=== PATIENT | female | born 1940 | race Caucasian/White ===

== ENCOUNTER → 2017-02-27 | Outpatient (REF) | payer MEDICARE ==
[~2017-02-27] MED LIST: ARTI99.0 OU; EYECAP PO; FERR325T PO; FURO20TA2 PO; INSUDET SC; INSUH10VL SC; OCUVTAB4 PO; OMEP40CA2 PO; PROP10TA56 PO; SPIR50TA2 PO; VITA200015 PO; XIFA550T PO
[2017-02-27 20:00] LABS: ALBUMIN/GLOBULIN RATIO 1.03 (1.00-1.93); BILIRUBIN,TOTAL 2.9 MG/DL (0.2-1.0); CALCIUM LEVEL 8.1 MG/DL (8.8-10.2); CREATININE FOR GFR 1.27 MG/DL (0.55-1.02); GLOMERULAR FILTRATION RATE 43.7 (>39); POTASSIUM SERUM 4.7 MEQ/L (3.5-5.1); TOTAL PROTEIN 5.9 GM/DL (6.4-8.2)
== END ==
LOC: M SFHCADAM 15:54
PROVIDERS: ATTEND Family Medicine
DX: R60.0 Localized edema (principal)

== ENCOUNTER → 2017-02-27 | Outpatient (CLI) | payer MEDICARE ==
--- NOTE | 2017-02-27 17:19 | REP ---
CHEST, TWO VIEWS: HISTORY: Lower extremity edema. COMPARISON: 07/29/2016 Increased density is present in the right lower lobe consistent with atelectasis or infiltrate. A small right pleural effusion is present. The left lung is clear. The heart is normal in size. The pulmonary vasculature is normal in appearance. There are old compression fractures of two mid thoracic vertebral bodies. IMPRESSION: 1. Right lower lobe atelectasis or infiltrate. 2. Small right pleural effusion. Signed by Winston Dye MD 02/28/2017 08:50 A
== END ==
LOC: M ADAMS 15:56
PROVIDERS: ATTEND Family Medicine
DX: J98.11 Atelectasis (principal); J90 Pleural effusion, not elsewhere classified; R60.0 Localized edema
CPT/HCPCS: 71020; 80053; 83880; G0463

== ENCOUNTER → 2017-03-21 | Outpatient (REF) | payer MEDICARE ==
[~2017-03-21] MED LIST changes: +AMLO2.5T PO; +CLOP75TA2 PO; +FURO40TA2 PO; +PANT40TA2 PO
== END ==
LOC: M SFHCADAM 15:45
PROVIDERS: ATTEND Physician Assistant Medical
DX: E11.21 Type 2 diabetes mellitus with diabetic nephropathy (principal); D63.8 Anemia in other chronic diseases classified elsewhere; Z53.8 Procedure and treatment not carried out for other reasons

== ENCOUNTER → 2017-03-23 | Outpatient (REF) | payer MEDICARE ==
[2017-03-23 18:44] LABS: FOLATE 15.7 NG/ML (>5.4)
[2017-03-23 19:09] LABS: ALBUMIN 3.2 GM/DL (3.2-5.2); ALBUMIN/GLOBULIN RATIO 1.1 (1.00-1.93); BILIRUBIN,TOTAL 4.1 MG/DL (0.2-1.0); CALCIUM LEVEL 8.5 MG/DL (8.8-10.2); CREATININE FOR GFR 1.14 MG/DL (0.55-1.02); GLOMERULAR FILTRATION RATE 49.5 (>39); POTASSIUM SERUM 3.8 MEQ/L (3.5-5.1); TOTAL PROTEIN 6.1 GM/DL (6.4-8.2)
[2017-03-23 19:20] LABS: BASO % 0.5 % (0.0-1.0); EOS # 0.2 K/mm3 (0.0-0.50); EOS % 2.5 % (0.0-3.0); LARGE UNSTAINED CELL # 0.2 K/mm3 (0.0-0.4); LARGE UNSTAINED CELL % 3.5 % (0.0-4.0); LYMPH # 1.4 K/mm3 (1.5-4.5); LYMPH % 23.2 % (24.0-44.0); MEAN CORPUSCULAR HGB CONC 33.4 g/dl (32.0-36.5); MEAN CORPUSCULAR VOLUME 101.7 fl (80.0-96.0); MONO # 0.4 K/mm3 (0.0-0.8); MONO % 6.6 % (0.0-5.0); NEUTROPHILS # 3.8 K/mm3 (1.8-7.7); NEUTROPHILS % 63.7 % (36.0-66.0); PLATELET COUNT, AUTOMATED 101 k/mm3 (150-450); WHITE BLOOD COUNT 5.9 K/mm3 (4.0-10.0)
== END ==
LOC: M LABDRAW1 15:03
PROVIDERS: ATTEND Physician Assistant Medical
DX: N18.9 Chronic kidney disease, unspecified (principal); D63.8 Anemia in other chronic diseases classified elsewhere; E11.21 Type 2 diabetes mellitus with diabetic nephropathy

== ENCOUNTER 2017-03-27 17:12 | Observation (INO) | payer MEDICARE ==
[~2017-03-27] VITALS: Ht 154.9 cm; Wt 80.7 kg
[~2017-03-27 17:12] MED LIST changes: -AMLO2.5T PO; -CLOP75TA2 PO; -FURO40TA2 PO; -PANT40TA2 PO
[2017-03-27] MEDS ORDERED: NS 1,000 ML IV SCH (17:57)
--- NOTE | 2017-03-27 18:17 | REP ---
Clinical: Altered mental status . Findings: Age-related atrophy and microvascular ischemic changes are appreciated. The ventricles and sulci are symmetric. Benavidez-white differentiation is maintained. There is no evidence for acute intracranial hemorrhage, mass/mass effect, pathology or infarction. No extra-axial fluid collection. Calvarium is intact. Paranasal sinuses and mastoid air cells are clear. Impression: Age related atrophy and microvascular ischemic changes. No acute intracranial hemorrhage, infarction, or mass/mass effect. Signed by Nakul Iyer MD 03/27/2017 06:09 P
[2017-03-27 18:32] LABS: ABG BASE EXCESS -1.2 (-2.0-2.0); ABG HCO3 21.6 MEQ/L (22.0-26.0); ABG PARTIAL PRESSURE CO2 29.8 mmHg (35.0-45.0); ABG PARTIAL PRESSURE O2 118.1 mmHg (75.0-100.0); ABG STANDARD HCO3 23.5 MEQ/L (22.0-26.0); ABG TOTAL CO2 22.5 MEQ/L (23.0-31.0); ABG pH (ARTERIAL) 7.478 UNITS (7.350-7.450)
--- NOTE | 2017-03-27 18:34 | REP ---
Clinical: Altered mental status. Comparison: 07/29/2016. Findings: Mediastinum and cardiac silhouette are within normal limits and stable. Lung sousa demonstrate chronic stable interstitial changes. No obvious acute consolidation, effusion, or pneumothorax. Skeletal structures demonstrate age-related degenerative changes. Impression: Chronic stable changes. No obvious acute cardiopulmonary process. Signed by Nakul Iyer MD 03/27/2017 06:26 P
[2017-03-27 18:53] LABS: BASO % 0.5 % (0.0-1.0); EOS # 0.1 K/mm3 (0.0-0.50); EOS % 1.3 % (0.0-3.0); LARGE UNSTAINED CELL # 0.2 K/mm3 (0.0-0.4); LARGE UNSTAINED CELL % 3.4 % (0.0-4.0); LYMPH # 1.1 K/mm3 (1.5-4.5); LYMPH % 22.7 % (24.0-44.0); MEAN CORPUSCULAR HEMOGLOBIN 34.2 pg (27.0-33.0); MEAN CORPUSCULAR HGB CONC 33.9 g/dl (32.0-36.5); MEAN CORPUSCULAR VOLUME 100.8 fl (80.0-96.0); MONO # 0.3 K/mm3 (0.0-0.8); MONO % 6.1 % (0.0-5.0); NEUTROPHILS # 3.3 K/mm3 (1.8-7.7); NEUTROPHILS % 66.1 % (36.0-66.0); RED CELL DISTRIBUTION WIDTH 13.9 % (11.5-14.5)
[2017-03-27 18:58] LABS: INR 1.54
[2017-03-27] MEDS ORDERED: FURO40TA2 PO (19:06)
[2017-03-27] MEDS ORDERED: XIFA550T PO (19:07)
[2017-03-27] MEDS ORDERED: CLOP75TA2 PO (19:07)
[2017-03-27] MEDS ORDERED: AMLO2.5T PO (19:07)
[2017-03-27] MEDS ORDERED: PANT40TA2 PO (19:07)
[2017-03-27 19:11] LABS: METHADONE URINE NEGATIVE (NEGATIVE)
[2017-03-27 19:12] LABS: PLATELET COUNT, AUTOMATED 83 k/mm3 (150-450)
[2017-03-27 19:15] LABS: ALBUMIN 2.8 GM/DL (3.2-5.2); ALBUMIN/GLOBULIN RATIO 0.97 (1.00-1.93); ALKALINE PHOSPHATASE 66 U/L (45-117); ALT/SGPT 25 U/L (12-78); AMYLASE 59 U/L (25-115); ANION GAP 8 MEQ/L (8-16); AST/SGOT 30 U/L (15-37); BILIRUBIN,DIRECT 0.8 MG/DL (0.0-0.2); BILIRUBIN,TOTAL 3.9 MG/DL (0.2-1.0); CALCIUM LEVEL 8.1 MG/DL (8.8-10.2); CARBON DIOXIDE LEVEL 25 MEQ/L (21-32); CHLORIDE LEVEL 113 MEQ/L (98-107); CREATININE FOR GFR 0.99 MG/DL (0.55-1.02); GLOMERULAR FILTRATION RATE 58.2 (>39); GLUCOSE, FASTING 139 MG/DL (83-110); SODIUM LEVEL 146 MEQ/L (136-145); TOTAL PROTEIN 5.7 GM/DL (6.4-8.2)
[2017-03-27 19:20] LABS: BLOOD UREA NITROGEN 24 MG/DL (7-18)
[2017-03-27] MEDS ORDERED: ISOVUE-370 76% 100ML VIAL (Q9967) As Ordered ONE (20:05)
[2017-03-27] MEDS: LEVEMIR (INSULIN DETEMIR) 1 UNITS/0.01ML SC SCH (21:00)
[2017-03-27] MEDS ORDERED: oxyCODONE 5MG TAB PO PRN (23:00)
[2017-03-27] MEDS ORDERED: GLUCAGON FOR INJ 1 MG VIAL (J1610) SC PRN (23:00)
[2017-03-27] MEDS ORDERED: ONDANSETRON 4MG/2ML VIAL (J2405) IV PRN (23:00)
[2017-03-27] MEDS ORDERED: ONDANSETRON 4 MG TAB (S0181) PO PRN (23:00)
[2017-03-27] MEDS ORDERED: GLUCOSE 4 GM CHEW TABLET PO PRN (23:00)
[2017-03-27] MEDS ORDERED: DEXTROSE 50% 50 ML SYRINGE IV PRN (23:00)
[2017-03-28] MEDS: PROPRANOLOL 10 MG TAB PO SCH ×3 (01:26→20:48)
[2017-03-28] MEDS: NS 0.45% 1,000 ML IV SCH ×2 (01:27→20:49)
[2017-03-28] MEDS: rifAXIMin 550 MG TAB (XIFAXAN) PO SCH ×3 (01:30→20:47)
--- NOTE | 2017-03-28 05:55 | HPEPDOC ---
Medical History and Physical Date of Admission March 27, 2017 at 23:00 History and Physical HISTORY AND PHYSICAL Date of admission: 03/27/2017 PCP: Lucinda Rich Chief complaint: Found down on the floor and confused HPI: 76-year-old female with liver cirrhosis of unknown etiology, hypertension, GERD, diabetes mellitus type 2 who was brought into the emergency department secondary to being found down on the ground by her partner and confused. It is unknown how long she was on the floor. Unfortunately, no family has accompanied her, and she tells me that she doesn't have any memory of what happened today. It is unclear if she lost consciousness, but the patient thinks that she might have. By the time I interviewed her, she is alert and oriented 3, but she has no idea how she got on the floor or what happened today. She is a very poor historian, and does not have any specific complaints. She does report some abdominal pain, but upon further discussion, it sounds like this has been a problem ever since July, after the patient had a TIPS procedure. Past medical history: liver cirrhosis of unknown etiology, hypertension, GERD, diabetes mellitus type 2 Past surgical history: Appendectomy, BTL, bladder sling, cardiac cath without stent placement, bilateral cataract surgery, liver biopsy, cholecystectomy, TIPS procedure, frequent paracentesis Family history: CAD, cancer Social history: The patient denies any alcohol consumption currently. She states that in the past she used to drink occasionally but never drank heavily. She quit smoking over 10 years ago. She lives at home with her partner. Allergies: Aspirin, Cipro, duloxetine, morphine, nortriptyline, penicillin, sulfa,phenazophyridine Review of systems: General: Negative for fever, positive for chills Eyes: Positive for vision changes during the time she was on the floor that have now resolved negative for ocular discharge ENT: Positive for sore throat Cardiovascular: Negative for chest pain and palpitations Respiratory: Positive for cough, negative for shortness of breath GI: Positive for diarrhea, negative for vomiting and nausea Musculoskeletal: Positive for back pain Skin: Negative for rash Neuro: Positive for headache, negative for dizziness, numbness, tingling Psych: Negative for suicidal ideation, but positive for depression Endocrine: Positive for polyuria : Negative for dysuria Heme: Negative for bruising and bleeding Home meds: See below Physical exam: Vital signs: Vital Sign - Last 24 Hours 03/27/17 03/27/17 03/27/17 03/27/17 17:51 19:09 19:12 19:24 Temp 98.6 Pulse 68 62 Resp 18 B/P (MAP) 182/89 (120) 200/79 (119) 217/108 (144) Pulse Ox 99 99 O2 Delivery Room Air 03/27/17 03/27/17 03/27/17 03/27/17 19:27 19:42 19:55 19:57 Pulse 74 70 62 B/P (MAP) 159/70 (99) Pulse Ox 99 98 98 03/27/17 03/27/17 03/27/17 03/27/17 19:58 19:58 20:09 20:12 Pulse 64 B/P (MAP) 159/70 (99) 166/71 (102) 174/70 (104) Pulse Ox 98 03/27/17 03/27/17 03/27/17 03/27/17 20:24 20:27 20:39 20:42 Pulse 74 68 B/P (MAP) 161/69 (99) 151/67 (95) Pulse Ox 97 97 03/27/17 03/27/17 03/27/17 03/27/17 20:54 20:57 21:09 21:12 Pulse 68 66 B/P (MAP) 159/60 (93) 161/67 (98) Pulse Ox 98 98 03/27/17 03/27/17 03/27/17 03/27/17 21:24 21:27 21:39 21:42 Pulse 64 62 B/P (MAP) 155/67 (96) 168/70 (102) Pulse Ox 99 98 03/27/17 03/27/17 03/27/17 03/27/17 21:54 21:57 22:09 22:12 Pulse 64 64 B/P (MAP) 162/69 (100) 99/52 (68) Pulse Ox 98 98 03/27/17 03/27/17 03/27/17 03/27/17 22:27 22:39 22:42 22:54 Pulse 70 64 B/P (MAP) 145/62 (89) 145/58 (87) Pulse Ox 98 100 03/27/17 03/27/17 03/27/17 03/27/17 22:57 23:09 23:12 23:24 Pulse 62 74 B/P (MAP) 151/65 (93) 155/67 (96) Pulse Ox 100 03/27/17 03/27/17 03/27/17 03/27/17 23:27 23:39 23:42 23:54 Pulse 64 62 B/P (MAP) 145/63 (90) 151/56 (87) 03/27/17 03/28/17 03/28/17 03/28/17 23:57 00:09 00:12 00:24 Pulse 62 62 B/P (MAP) 158/61 (93) 157/65 (95) 03/28/17 03/28/17 03/28/17 03/28/17 00:27 00:39 00:42 00:54 Pulse 60 60 B/P (MAP) 162/63 (96) 144/58 (86) 03/28/17 03/28/17 03/28/17 03/28/17 00:57 01:09 01:12 01:17 Temp 98.1 Pulse 60 66 64 Resp 20 B/P (MAP) 156/58 (90) 156/58 (90) Pulse Ox 98 98 O2 Delivery Room Air 03/28/17 03/28/17 03/28/17 03/28/17 01:24 01:26 01:27 01:27 Pulse 60 Resp 18 B/P (MAP) 141/58 (85) 141/58 Pulse Ox 98 03/28/17 03/28/17 03/28/17 03/28/17 01:39 01:42 01:54 01:57 Pulse 62 64 B/P (MAP) 144/60 (88) 151/61 (91) Pulse Ox 98 96 03/28/17 03/28/17 03/28/17 03/28/17 01:58 02:09 02:12 02:24 Pulse 64 Resp 20 B/P (MAP) 150/60 (90) 152/63 (92) Pulse Ox 96 03/28/17 03/28/17 03/28/17 03/28/17 02:27 02:42 02:54 02:57 Pulse 60 56 58 B/P (MAP) 140/62 (88) Pulse Ox 97 96 96 03/28/17 03/28/17 03/28/17 03/28/17 03:09 03:12 03:24 03:27 Pulse 60 58 B/P (MAP) 138/60 (86) 143/59 (87) Pulse Ox 97 96 03/28/17 03/28/17 03/28/17 03/28/17 03:39 03:42 03:54 03:57 Pulse 58 58 B/P (MAP) 138/62 (87) 139/60 (86) Pulse Ox 97 96 03/28/17 03/28/17 03/28/17 03/28/17 04:09 04:12 04:24 04:27 Pulse 60 58 B/P (MAP) 141/58 (85) 142/58 (86) Pulse Ox 96 97 03/28/17 03/28/17 03/28/17 03/28/17 04:39 04:42 04:54 04:57 Pulse 58 60 B/P (MAP) 142/61 (88) 145/63 (90) Pulse Ox 96 96 03/28/17 05:07 Temp 98.3 Resp 20 B/P (MAP) O2 Delivery Room Air Gen.: awake, alert, no acute distress Eyes: Extraocular movements intact, normal sclera ENT: Moist mucous membranes Cardiovascular: RRR, no murmurs rubs or gallops Lungs: clear to auscultation bilaterally, no rales, rhonchi, or wheeze Abdomen: Soft, normal BS, diffuse TTP Musculoskeletal: normal range of motion Extremities: No peripheral edema Neuro: alert and oriented 3, normal speech, no deficits in any extremities, no facial droop, no arm drift, intact finger to nose on right but significant tremor on left Psych: Normal mood with congruent affect Labs and radiology: See below Sodium 146 CK 80 Platelets 83 T bili 3.9 A lactate, ammonia, troponin, lipase, TSH, tox screen within normal limits EKG shows sinus rhythm with right bundle branch block CT head unremarkable Chest x-ray negative for acute findings CT of the abdomen and pelvis shows moderate right pleural effusion, and evidence of prior TIPS Assessment and plan: 76-year-old female with liver cirrhosis of unknown etiology, hypertension, GERD , diabetes mellitus type 2 who was brought into the emergency department secondary to being found down on the ground by her partner and confused. 1. Found down on the ground: It is unclear how this happened or how long the patient was down. Her CK is normal, so there is no evidence of rhabdomyolysis. It is unclear if she lost consciousness, but the patient thinks she might have CT of the head is unremarkable. We will monitor her on telemetry, continue to trend cardiac markers, the first of which is negative, and check an echo. We'll also check orthostatics. EKG shows sinus rhythm with a right bundle branch block. She does not have any focal deficits, so I do not think an MRI is warranted at this time. Blood and urine cultures are pending. 2. Diarrhea: We'll check a GI panel and a fecal occult blood. She is afebrile with a normal white count. We will very gently hydrate her. 3. Liver cirrhosis of unknown etiology: Continue home rifaximin mean, propranolol, PPI, Lasix. LFTs appear to be at baseline, as are her platelets. An ammonia is within normal limits. CT of the abdomen and pelvis does not mention any ascites. 4. Hypertension: Continue home Norvasc, Lasix, propranolol. 5. GERD: Continue home PPI. 6. Diabetes mellitus type 2: Sliding scale insulin while in-house and check A1c. The patient does report that she has noticed some low blood sugars at home , but she reports that she thinks these have ranged from the 70s to 100s. We will decrease her home Levemir from 24 units twice a day to 12 units twice a day as we are unclear exactly what happened today, and one potential thing could be hypoglycemia. DVT prophylaxis: SCDs Dispo: Place in observation on the service of Dr. Jono Gilman CODE STATUS: Full code Vital Signs Vital Signs Date Time Temp Pulse Resp B/P (MAP) Pulse Ox O2 Delivery O2 Flow Rate FiO2 03/28/17 05:07 98.3 20 Room Air 03/28/17 04:57 60 96 Laboratory Data Labs 24H Laboratory Tests 2 03/27/17 18:24: Blood Gas Bicarbonate Standard 23.5, Arterial Blood pH 7.478H, Arterial Blood Partial Pressure CO2 29.8L, Arterial Blood Partial Pressure O2 118.1H, Arterial Blood Total CO2 22.5L, Arterial Blood HCO3 21.6L, Arterial Blood Base Excess - 1.2, Arterial Blood Oxygen Saturation 98.0 03/27/17 18:29: White Blood Count 5.0, Red Blood Count 3.42L, Hemoglobin 11.7L, Hematocrit 34.4L , Mean Corpuscular Volume 100.8H, Mean Corpuscular Hemoglobin 34.2H, Mean Corpuscular Hemoglobin Concent 33.9, Red Cell Distribution Width 13.9, Platelet Count 83L, Neutrophils (%) (Auto) 66.1H, Lymphocytes (%) (Auto) 22.7L, Monocytes (%) (Auto) 6.1H, Eosinophils (%) (Auto) 1.3, Basophils (%) (Auto) 0.5 , Neutrophils # (Auto) 3.3, Lymphocytes # (Auto) 1.1L, Monocytes # (Auto) 0.3, Eosinophils # (Auto) 0.1, Basophils # (Auto) 0.0, Large Unclassified Cells % 3.4 , Large Unclassified Cells # 0.2, Urine Appearance HAZY, Urine Color YELLOW, Urine pH 7.0, Urine Specific [place] 1.013, Urine Protein 1+H, Urine Glucose (UA ) NEGATIVE, Urine Ketones NEGATIVE, Urine Urobilinogen 0.2, Urine Bilirubin NEGATIVE, Urine Leukocyte Esterase NEGATIVE, Urine Blood NEGATIVE, Urine Nitrite NEGATIVE, Urine WBC (Auto) 0, Urine RBC (Auto) 2, Urine Hyaline Casts ( Auto) 0, Urine Bacteria (Auto) NEGATIVE, Urine Squamous Epithelial Cells 3, Urine Mucus (Auto) SMALL, Urine Sperm (Auto) , Anion Gap 8, Glomerular Filtration Rate 58.2, Lactic Acid Level 1.8, Calcium Level 8.1L, Aspartate Amino Transf (AST/SGOT) 30, Alanine Aminotransferase (ALT/SGPT) 25, Alkaline Phosphatase 66, Total Bilirubin 3.9H, Direct Bilirubin 0.8H, Ammonia 17, Total Creatine Kinase 80, Creatine Kinase MB 1.9, Creatine Kinase MB Relative Index 2.37, Troponin I 0.02, Total Protein 5.7L, Albumin 2.8L, Albumin/Globulin Ratio 0.97L, Amylase Level 59, Lipase 335, Thyroid Stimulating Hormone (TSH) 1.200, Salicylates Level < 1.7L, Urine Amphetamines Screen NEGATIVE, Urine Benzodiazepines Screen NEGATIVE, Urine Opiates Screen NEGATIVE, Urine Methadone Screen NEGATIVE, Acetaminophen Level < 2.0L, Urine Barbiturates Screen NEGATIVE , Urine Phencyclidine Screen NEGATIVE, Urine Cocaine Metabolite Screen NEGATIVE , Urine Cannabinoids Screen NEGATIVE, Ethyl Alcohol Level < 0.003 03/27/17 18:30: Prothrombin Time 18.6H, Prothromb Time International Ratio 1.54, Activated Partial Thromboplast Time 36.5 03/28/17 01:09: Bedside Glucose (Misc Panel) 120H CBC/BMP Laboratory Tests 03/27/17 18:29 Red Blood Count 3.42 L, Mean Corpuscular Volume 100.8 H, Mean Corpuscular Hemoglobin 34.2 H, Mean Corpuscular Hemoglobin Concent 33.9, Red Cell Distribution Width 13.9, Neutrophils (%) (Auto) 66.1 H, Lymphocytes (%) (Auto) 22.7 L, Monocytes (%) (Auto) 6.1 H, Eosinophils (%) (Auto) 1.3, Basophils (%) ( Auto) 0.5, Neutrophils # (Auto) 3.3, Lymphocytes # (Auto) 1.1 L, Monocytes # ( Auto) 0.3, Eosinophils # (Auto) 0.1, Basophils # (Auto) 0.0 Microbiology Microbiology 03/27/17 Blood Culture, Received Pending 03/27/17 Blood Culture, Received Pending 03/27/17 Urine Culture, Received Pending Home Medications Scheduled Amlodipine Besylate (Amlodipine Besylate) 2.5 Mg Tab, 2.5 MG PO DAILY Cholecalciferol (Vitamin D) 2,000 Unit Tab, 2,000 UNIT PO DAILY Clopidogrel Bisulfate (Clopidogrel) 75 Mg Tab, 75 MG PO DAILY Ferrous Sulfate (Ferrous Sulfate) 325 Mg Tab, 325 MG PO DAILY Furosemide (Furosemide) 40 Mg Tab, 40 MG PO DAILY Insulin Aspart (Novolog) 100 U/Ml Inj, 1 DOSE SC AC per sliding scale Insulin Detemir (Levemir) 1 Units/0.01 Ml Susp, 24 UNITS SC BID Pantoprazole Sodium (Pantoprazole Sodium) 40 Mg Tab, 40 MG PO DAILY Propranolol HCl (Propranolol HCl) 10 Mg Tab, 10 MG PO BID Rifaximin (Xifaxan) 550 Mg Tab, 550 MG PO BID Allergies Coded Allergies: Aspirin (Verified Allergy, Intermediate, RASH, 07/31/16) Penicillins (Verified Allergy, Intermediate, SWELLING, 07/31/16) Phenazopyridine (Verified Allergy, Intermediate, RASH, 07/31/16) Sulfa Drugs (Verified Allergy, Intermediate, RASH, 07/31/16) Ciprofloxacin (Unverified Adverse Reaction, Intermediate, PANCYTOPENIA, ) Duloxetine (Unverified Adverse Reaction, Mild, DIZZINESS, 07/31/16) Morphine (Unverified Adverse Reaction, Mild, DIZZINESS, 07/31/16) Nortriptyline (Unverified Adverse Reaction, Mild, DROWSINESS, 07/31/16) KIMO MORALES March 28, 2017 05:54
--- NOTE | 2017-03-28 06:44 | ECGEPIP ---
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
--- NOTE | 2017-03-28 07:39 | REP ---
Clinical: Pain. Technique: Single AP view of the pelvis. Findings: Age-related degenerative changes to the pelvis and bilateral hips noted (right greater than left). No acute fracture dislocation identified. Degenerative changes to the visualized lumbosacral spine also appreciated. Impression: Age-related degenerative changes of the visualized lumbosacral spine, pelvis and hips (right greater than left). No acute fracture dislocation. Signed by Nakul Iyer MD 03/27/2017 07:13 P
[2017-03-28] MEDS: FERROUS SULFATE 325MG TAB PO SCH (08:13)
[2017-03-28] MEDS: CLOPIDOGREL 75 MG TAB PO SCH (08:15)
[2017-03-28] MEDS: PANTOPRAZOLE 40MG TAB (PROTONIX) PO SCH (08:17)
[2017-03-28] MEDS: FUROSEMIDE 40 MG TAB PO SCH (08:17)
[2017-03-28] MEDS: LEVEMIR (INSULIN DETEMIR) 1 UNITS/0.01ML SC SCH ×2 (08:18→20:47)
[2017-03-28] MEDS: HumaLOG INSULIN (NovoLOG) PER UNIT SC SCH ×4 (08:19→20:48)
[2017-03-28 08:25] LABS: INR 1.55
[2017-03-28 08:33] LABS: BASO % 0.9 % (0.0-1.0); EOS # 0.1 K/mm3 (0.0-0.50); EOS % 2.7 % (0.0-3.0); LARGE UNSTAINED CELL # 0.2 K/mm3 (0.0-0.4); LARGE UNSTAINED CELL % 3.5 % (0.0-4.0); LYMPH # 1.4 K/mm3 (1.5-4.5); LYMPH % 24.1 % (24.0-44.0); MEAN CORPUSCULAR HEMOGLOBIN 34.1 pg (27.0-33.0); MEAN CORPUSCULAR HGB CONC 34.3 g/dl (32.0-36.5); MEAN CORPUSCULAR VOLUME 99.3 fl (80.0-96.0); MONO # 0.4 K/mm3 (0.0-0.8); MONO % 6.7 % (0.0-5.0); NEUTROPHILS # 3.2 K/mm3 (1.8-7.7); NEUTROPHILS % 62.1 % (36.0-66.0); RED CELL DISTRIBUTION WIDTH 14.2 % (11.5-14.5); WHITE BLOOD COUNT 5.2 K/mm3 (4.0-10.0)
[2017-03-28 08:38] LABS: ALBUMIN 2.7 GM/DL (3.2-5.2); ALKALINE PHOSPHATASE 63 U/L (45-117); ALT/SGPT 23 U/L (12-78); ANION GAP 10 MEQ/L (8-16); AST/SGOT 29 U/L (15-37); BILIRUBIN,TOTAL 4.4 MG/DL (0.2-1.0); BLOOD UREA NITROGEN 24 MG/DL (7-18); CALCIUM LEVEL 7.5 MG/DL (8.8-10.2); CARBON DIOXIDE LEVEL 23 MEQ/L (21-32); CHLORIDE LEVEL 112 MEQ/L (98-107); CREATININE FOR GFR 0.94 MG/DL (0.55-1.02); GLOMERULAR FILTRATION RATE > 60.0 (>39); GLUCOSE, FASTING 161 MG/DL (83-110); MAGNESIUM LEVEL 1.8 MG/DL (1.8-2.4); POTASSIUM SERUM 3.8 MEQ/L (3.5-5.1); SODIUM LEVEL 145 MEQ/L (136-145); TOTAL PROTEIN 5.4 GM/DL (6.4-8.2)
--- NOTE | 2017-03-28 08:38 | REP ---
Clinical: Abdominal pain. Comparison: 07/29/2016. Findings: A small to moderate right pleural effusion is identified with bibasilar dependent changes and trace atelectasis. Visualized portions of the heart and pericardium are normal. Liver demonstrates nodular contour consistent with cirrhosis and there is evidence for TIPS. The patient is status post cholecystectomy. Spleen, pancreas, bilateral adrenal glands are essentially normal for noncontrast evaluation. Kidneys demonstrate age-related cortical atrophic changes without hydronephrosis. The enteric system is without obstruction or acute inflammatory process. Scattered diverticula noted without acute diverticulitis. Pelvis demonstrates partially collapsed normal bladder and age-appropriate uterus/adnexa with pessary in satisfactory position. No ascites. No free air. No significant adenopathy. Atherosclerotic changes to the vasculature noted without aneurysm. Small fat containing periumbilical hernia identified. Surrounding musculoskeletal structures demonstrate age-related degenerative changes without focal osseous abnormality. Impression: Small to moderate right pleural effusion. Evidence for cirrhosis and TIPS. Colonic diverticula without acute diverticulitis. Ascites. No acute intra-abdominal or pelvic pathology appreciated. Signed by Nakul Iyer MD 03/28/2017 08:29 A
[2017-03-28 09:05] LABS: PLATELET COUNT, AUTOMATED 82 k/mm3 (150-450)
--- NOTE | 2017-03-28 11:52 | IPNPDOC ---
Subjective Date Seen The patient was seen on 03/28/17. Subjective Chief Complaint/HPI The patient is a 76-year-old female admitted with a reason for visit of Altered Mental Status. Events since last encounter Admitted for syncope with LOC. Found at home on the floor by sheeter helper. States woke up in am, glucose was 150, ate her usual breakfast of strawberries and milk. Unable to recall events after breakfast. could hear EMS and sheeter helper around her, yet didn't respond. Denies loss of bowel or bladder. Denies hx of seizure. states was told may have had a TIA previously. 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 Has hx of autoimmune hepatitis with liver cirrhosis. Follows with Dr. Mendoza. Constitutional: Denies: Chills, Fever, Night Sweats ENT: Reports: Head Aches (frontal), Denies: Ear Pain, Dysphagia Skin: Denies: Rash, Lesions, Breakdown Pulmonary: Denies: Dyspnea, Cough Gastrointestinal: Denies: Nausea, Vomiting, Abdominal Pain, Diarrhea, Constipation Genitourinary: Denies: Dysuria, Frequency, Incontinence, Retention Musculoskeletal: Denies: Neck Pain, Back Pain, Joint Pain, Muscle Pain, Spasms Neurological: Denies: Weakness, Numbness, Change in speech, Confusion Psych: Reports: Mood Normal, Denies: Depression, Memory Issues Objective Physical Examination General Exam: Positive: Alert, No Acute Distress Eye Exam: Positive: PERRLA, Conjunctiva & lids normal, EOMI, Negative: Sclera icteric ENT Exam: Positive: Atraumatic, Mucous membr. moist/pink, Pharynx Normal Neck Exam: Positive: Supple, Negative: JVD, thyromegaly Chest Exam: Positive: Clear to auscultation, Normal air movement Heart Exam: Positive: Rate Normal, Regular Rhythm, Normal S1, Normal S2, Negative: Murmurs, Rubs Telemetry: Positive: No significant arrhythmia Abdomen Exam: Positive: Normal bowel sounds, Soft, Negative: Tenderness, Hepatospenomegaly Extremity Exam: Positive: Normal pulses, Negative: Clubbing, Cyanosis, Edema Skin Exam: Positive: Nl turgor and temperature, Negative: Rash, Breakdown Neuro Exam: Positive: Normal Gait, Normal Speech, Cranial Nerves 3-12 NL, Reflexes 2+ Psych Exam: Positive: Mental status NL, Mood NL, Oriented x 3 Assessment /Plan Problems (1) Altered mental status Status: Acute Problem Text: unknown etiology. MRI/MRA brain ordered. EEG ordered. Neurology consulted. (2) Diabetes mellitus Status: Chronic Response to Treatment: Stable Problem Specific Plan: Monitor Clinically Problem Text: FS ac and hs. Insulin sliding scale ordered. (3) Diastolic CHF, acute on chronic Status: Chronic Response to Treatment: Stable Problem Specific Plan: Monitor Clinically Problem Text: appears well compensated. (4) Autoimmune hepatitis Status: Chronic Response to Treatment: Stable Problem Specific Plan: Monitor Clinically Problem Text: Follows with Dr. Mendoza (5) Iron deficiency anemia Status: Chronic Response to Treatment: Stable Problem Specific Plan: Monitor Clinically Problem Text: baseline hemoglobin between 10-12. (6) GERD (gastroesophageal reflux disease) Status: Chronic Response to Treatment: Stable Problem Specific Plan: Monitor Clinically (7) Cirrhosis Onset Date: Unknown Status: Chronic Response to Treatment: Stable Problem Specific Plan: Monitor Clinically Problem Text: On Rifaximin, Propranolol, Furosemide home dosing. Plan/VTE VTE Prophylaxis Ordered?: Yes (plavix) Plan Therapy: PT Attending note: I saw and evaluated the patient, and I agree with plan of care as discussed and document above by Mariella Loza. Patient describes being unable to move, however being able to hear everything around her. This is since resolved. Her mentation seems appropriate, and she has no focal neurologic changes. A pontine stroke or new onset seizures could possibly present this way. Neurology was consulted. MRI ordered to rule out stroke, MRA to evaluate cerebral vasculature, and EEG for evaluation of possible new onset seizure. No new medications. Blood glucose was normal on presentation. No history of seizures. No history of strokes. Jose Lee MD VS, I&O, 24H, [facility] Vital Signs/I&O Vital Signs Date Time Temp Pulse Resp B/P (MAP) Pulse Ox O2 Delivery O2 Flow Rate FiO2 03/28/17 08:15 160/65 03/28/17 05:07 98.3 20 Room Air 03/28/17 04:57 60 96 Laboratory Data 24H LABS Laboratory Tests 2 03/27/17 18:24: Blood Gas Bicarbonate Standard 23.5, Arterial Blood pH 7.478H, Arterial Blood Partial Pressure CO2 29.8L, Arterial Blood Partial Pressure O2 118.1H, Arterial Blood Total CO2 22.5L, Arterial Blood HCO3 21.6L, Arterial Blood Base Excess - 1.2, Arterial Blood Oxygen Saturation 98.0 03/27/17 18:29: White Blood Count 5.0, Red Blood Count 3.42L, Hemoglobin 11.7L, Hematocrit 34.4L , Mean Corpuscular Volume 100.8H, Mean Corpuscular Hemoglobin 34.2H, Mean Corpuscular Hemoglobin Concent 33.9, Red Cell Distribution Width 13.9, Platelet Count 83L, Neutrophils (%) (Auto) 66.1H, Lymphocytes (%) (Auto) 22.7L, Monocytes (%) (Auto) 6.1H, Eosinophils (%) (Auto) 1.3, Basophils (%) (Auto) 0.5 , Neutrophils # (Auto) 3.3, Lymphocytes # (Auto) 1.1L, Monocytes # (Auto) 0.3, Eosinophils # (Auto) 0.1, Basophils # (Auto) 0.0, Large Unclassified Cells % 3.4 , Large Unclassified Cells # 0.2, Urine Appearance HAZY, Urine Color YELLOW, Urine pH 7.0, Urine Specific Dilliner 1.013, Urine Protein 1+H, Urine Glucose (UA ) NEGATIVE, Urine Ketones NEGATIVE, Urine Urobilinogen 0.2, Urine Bilirubin NEGATIVE, Urine Leukocyte Esterase NEGATIVE, Urine Blood NEGATIVE, Urine Nitrite NEGATIVE, Urine WBC (Auto) 0, Urine RBC (Auto) 2, Urine Hyaline Casts ( Auto) 0, Urine Bacteria (Auto) NEGATIVE, Urine Squamous Epithelial Cells 3, Urine Mucus (Auto) SMALL, Urine Sperm (Auto) , Anion Gap 8, Glomerular Filtration Rate 58.2, Lactic Acid Level 1.8, Calcium Level 8.1L, Aspartate Amino Transf (AST/SGOT) 30, Alanine Aminotransferase (ALT/SGPT) 25, Alkaline Phosphatase 66, Total Bilirubin 3.9H, Direct Bilirubin 0.8H, Ammonia 17, Total Creatine Kinase 80, Creatine Kinase MB 1.9, Creatine Kinase MB Relative Index 2.37, Troponin I 0.02, Total Protein 5.7L, Albumin 2.8L, Albumin/Globulin Ratio 0.97L, Amylase Level 59, Lipase 335, Thyroid Stimulating Hormone (TSH) 1.200, Salicylates Level < 1.7L, Urine Amphetamines Screen NEGATIVE, Urine Benzodiazepines Screen NEGATIVE, Urine Opiates Screen NEGATIVE, Urine Methadone Screen NEGATIVE, Acetaminophen Level < 2.0L, Urine Barbiturates Screen NEGATIVE , Urine Phencyclidine Screen NEGATIVE, Urine Cocaine Metabolite Screen NEGATIVE , Urine Cannabinoids Screen NEGATIVE, Ethyl Alcohol Level < 0.003 03/27/17 18:30: Prothrombin Time 18.6H, Prothromb Time International Ratio 1.54, Activated Partial Thromboplast Time 36.5 03/28/17 01:09: Bedside Glucose (Misc Panel) 120H 03/28/17 07:22: Bedside Glucose (Misc Panel) 263H 03/28/17 07:37: White Blood Count 5.2, Red Blood Count 3.32L, Hemoglobin 11.3L, Hematocrit 33.0L , Mean Corpuscular Volume 99.3H, Mean Corpuscular Hemoglobin 34.1H, Mean Corpuscular Hemoglobin Concent 34.3, Red Cell Distribution Width 14.2, Platelet Count 82L, Neutrophils (%) (Auto) 62.1, Lymphocytes (%) (Auto) 24.1, Monocytes ( %) (Auto) 6.7H, Eosinophils (%) (Auto) 2.7, Basophils (%) (Auto) 0.9, Neutrophils # (Auto) 3.2, Lymphocytes # (Auto) 1.4L, Monocytes # (Auto) 0.4, Eosinophils # (Auto) 0.1, Basophils # (Auto) 0.0, Large Unclassified Cells % 3.5 , Large Unclassified Cells # 0.2, Prothrombin Time 18.7H, Prothromb Time International Ratio 1.55, Anion Gap 10, Glomerular Filtration Rate > 60.0, Estimated Mean Plasma Glucose 94, Hemoglobin A1c 4.9, Blood Urea Nitrogen 24H, Creatinine 0.94, Sodium Level 145, Potassium Level 3.8, Chloride Level 112H, Carbon Dioxide Level 23, Calcium Level 7.5L, Aspartate Amino Transf (AST/SGOT) 29, Alanine Aminotransferase (ALT/SGPT) 23, Total Creatine Kinase 78, Alkaline Phosphatase 63, Total Bilirubin 4.4H, Total Protein 5.4L, Albumin 2.7L, Magnesium Level 1.8, Creatine Kinase MB 1.7, Creatine Kinase MB Relative Index 2.17, Troponin I 0.03#, Albumin/Globulin Ratio 1.00 CBC/BMP Laboratory Tests 03/27/17 18:29 Red Blood Count 3.42 L, Mean Corpuscular Volume 100.8 H, Mean Corpuscular Hemoglobin 34.2 H, Mean Corpuscular Hemoglobin Concent 33.9, Red Cell Distribution Width 13.9, Neutrophils (%) (Auto) 66.1 H, Lymphocytes (%) (Auto) 22.7 L, Monocytes (%) (Auto) 6.1 H, Eosinophils (%) (Auto) 1.3, Basophils (%) ( Auto) 0.5, Neutrophils # (Auto) 3.3, Lymphocytes # (Auto) 1.1 L, Monocytes # ( Auto) 0.3, Eosinophils # (Auto) 0.1, Basophils # (Auto) 0.0 03/28/17 07:37 Red Blood Count 3.32 L, Mean Corpuscular Volume 99.3 H, Mean Corpuscular Hemoglobin 34.1 H, Mean Corpuscular Hemoglobin Concent 34.3, Red Cell Distribution Width 14.2, Neutrophils (%) (Auto) 62.1, Lymphocytes (%) (Auto) 24.1, Monocytes (%) (Auto) 6.7 H, Eosinophils (%) (Auto) 2.7, Basophils (%) ( Auto) 0.9, Neutrophils # (Auto) 3.2, Lymphocytes # (Auto) 1.4 L, Monocytes # ( Auto) 0.4, Eosinophils # (Auto) 0.1, Basophils # (Auto) 0.0, Calcium Level 7.5 L , Aspartate Amino Transf (AST/SGOT) 29, Alanine Aminotransferase (ALT/SGPT) 23, Total Creatine Kinase 78, Alkaline Phosphatase 63, Total Bilirubin 4.4 H, Total Protein 5.4 L, Albumin 2.7 L Microbiology Microbiology 03/27/17 Blood Culture, Received Pending 03/27/17 Blood Culture, Received Pending 03/27/17 Urine Culture, Received Pending Sandy Loza March 28, 2017 11:52 JOSE LEE MD March 28, 2017 13:53
--- NOTE | 2017-03-28 15:03 | REP ---
MRI BRAIN WITHOUT CONTRAST: 03/28/2017. CLINICAL HISTORY: Syncope with loss of consciousness. COMPARISON: 09/21/2007. TECHNIQUE: Sagittal T1-weighted with axial T1, T2, FLAIR, diffusion weighted images and ADC mapping sequences along with gradient echo sequence. FINDINGS: The T2 images are degraded by motion artifact as are the FLAIR sequence images. However, the ventricles are seen midline, symmetric and their size unchanged from previous studies. This is proportionate to the very mild diffuse atrophy, greatest in the temporal lobes, but stable. Periventricular, deep central and subcortical white matter hyperintense T2 and FLAIR foci are seen bilaterally, unchanged and representing chronic small vessel ischemic changes. There is no vascular territory infarct, hemorrhage, mass, mass effect or edema. Brainstem and cerebellum show no signal abnormality. No posterior fossa atrophy. Third and fourth ventricles unremarkable. Basal cisterns grossly intact. Seventh/eighth cranial nerve complexes and mastoids unremarkable. The left sphenoid sinus is opacified. The right sphenoid sinus remains clear. Diffusion weighted images and ADC mapping sequences show no evidence of acute ischemia. Corpus callosum, optic chiasm and pituitary grossly intact. Cerebellar tonsils do not extend below the foramen magnum. Ample subarachnoid space there. IMPRESSION: 1. Mild atrophy with chronic small vessel white matter ischemic changes of aging with periventricular, deep central and subcortical white matter T2 hyperintense foci. All of this unchanged. 2. No intracranial hemorrhage, acute infarct, edema or mass. 3. Posterior fossa, seventh/eighth cranial nerve complexes, mastoids and sinuses were intact except for some opacification of the left sphenoid air cell. Signed by Hussein Mora MD 03/28/2017 04:52 P
--- NOTE | 2017-03-28 15:09 | REP ---
MRA BRAIN WITHOUT CONTRAST: 03/28/2017. CLINICAL HISTORY: Syncope with loss of consciousness. COMPARISON: MRI brain today, CT brain 03/27/2017, MRI 09/21/2007. TECHNIQUE: 3-D [id number] gradient echo images with MIP reformatting and rotational display of the volume acquisitions about the longitudinal and horizontal axis of the brain. All source images are reviewed. FINDINGS: The basilar artery has symmetric contributions from the vertebral arteries. No basilar stenosis or basilar tip aneurysm with mild tortuosity. The posterior cerebral arteries show origin from the basilar tip on the right and a origin for the left posterior cerebral artery which is an anatomic variation. Posterior superior cerebellar arteries were also seen and unremarkable. The right internal carotid from the skull base to the carotid siphon was intact. In the carotid siphon there is some atherosclerotic plaque. There is some mild stenosis present. Supraclinoid, A1 and M1 segments were unremarkable. The A2 and M2 segments were also unremarkable. The left internal carotid from the skull base to the carotid siphons unremarkable. There is some atherosclerotic plaque in the carotid siphon with some stenosis more than on the right. Supraclinoid carotid, A1 and M1 segments grossly preserved with some mild stenosis of the left A1 segment. The A2 and M2 segments were grossly intact. Source images confirm the above. IMPRESSION: 1. Predominately origin for the posterior cerebral artery supply on the left as anatomic variation. No basilar artery aneurysm, stenosis. 2. 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 Some mild stenotic appearance of the A1 segment on the left. Right A1 and both segments were intact and the M2 and A2 segments preserved. No other finding. Signed by Hussein Mora MD 03/28/2017 04:52 P
[2017-03-28 20:00] VITALS: BP 172/106
[2017-03-28 20:10] VITALS: BP 170/65
[2017-03-28 22:30] VITALS: BP_SYST 150; BP_SYST 162; BP_SYST 168; BP_DIAS 66; BP_DIAS 70; BP_DIAS 82
[2017-03-29] VITALS: BP 149/69
[2017-03-29 04:00] VITALS: BP 142/67
[2017-03-29 07:16] LABS: INR 1.52
[2017-03-29 07:18] LABS: BASO % 0.9 % (0.0-1.0); EOS # 0.2 K/mm3 (0.0-0.50); EOS % 3.9 % (0.0-3.0); LARGE UNSTAINED CELL # 0.3 K/mm3 (0.0-0.4); LARGE UNSTAINED CELL % 5.4 % (0.0-4.0); LYMPH # 1.4 K/mm3 (1.5-4.5); MEAN CORPUSCULAR HEMOGLOBIN 34.6 pg (27.0-33.0); MEAN CORPUSCULAR HGB CONC 34.6 g/dl (32.0-36.5); MONO # 0.4 K/mm3 (0.0-0.8); MONO % 7.8 % (0.0-5.0); NEUTROPHILS # 2.4 K/mm3 (1.8-7.7); NEUTROPHILS % 51.1 % (36.0-66.0); RED CELL DISTRIBUTION WIDTH 13.7 % (11.5-14.5); WHITE BLOOD COUNT 4.6 K/mm3 (4.0-10.0)
[2017-03-29 07:22] LABS: PLATELET COUNT, AUTOMATED 76 k/mm3 (150-450)
[2017-03-29] MEDS: HumaLOG INSULIN (NovoLOG) PER UNIT SC SCH ×4 (07:30→21:00)
[2017-03-29 07:34] LABS: ALBUMIN 2.3 GM/DL (3.2-5.2); ALBUMIN/GLOBULIN RATIO 0.82 (1.00-1.93); ALKALINE PHOSPHATASE 54 U/L (45-117); ALT/SGPT 20 U/L (12-78); ANION GAP 6 MEQ/L (8-16); AST/SGOT 25 U/L (15-37); BILIRUBIN,TOTAL 3.6 MG/DL (0.2-1.0); BLOOD UREA NITROGEN 22 MG/DL (7-18); CALCIUM LEVEL 7.7 MG/DL (8.8-10.2); CARBON DIOXIDE LEVEL 28 MEQ/L (21-32); CHLORIDE LEVEL 109 MEQ/L (98-107); CREATININE FOR GFR 0.95 MG/DL (0.55-1.02); GLOMERULAR FILTRATION RATE > 60.0 (>39); GLUCOSE, FASTING 95 MG/DL (83-110); MAGNESIUM LEVEL 1.5 MG/DL (1.8-2.4); POTASSIUM SERUM 3.4 MEQ/L (3.5-5.1); SODIUM LEVEL 143 MEQ/L (136-145); TOTAL PROTEIN 5.1 GM/DL (6.4-8.2)
[2017-03-29 08:00] VITALS: BP 146/60
[2017-03-29] MEDS: LEVEMIR (INSULIN DETEMIR) 1 UNITS/0.01ML SC SCH ×2 (09:00→21:42)
[2017-03-29] MEDS: PROPRANOLOL 10 MG TAB PO SCH ×2 (09:12→21:42)
[2017-03-29] MEDS: PANTOPRAZOLE 40MG TAB (PROTONIX) PO SCH (09:12)
[2017-03-29] MEDS: rifAXIMin 550 MG TAB (XIFAXAN) PO SCH ×2 (09:13→21:39)
[2017-03-29] MEDS: CLOPIDOGREL 75 MG TAB PO SCH (09:13)
[2017-03-29] MEDS: FUROSEMIDE 40 MG TAB PO SCH (09:13)
[2017-03-29] MEDS: FERROUS SULFATE 325MG TAB PO SCH (09:13)
[2017-03-29] MEDS: NS 0.45% 1,000 ML IV SCH (14:21)
--- NOTE | 2017-03-29 18:43 | IPNPDOC ---
Subjective Date Seen The patient was seen on 03/29/17. Subjective Chief Complaint/HPI The patient is a 76-year-old female admitted with a reason for visit of Altered Mental Status. Events since last encounter Patient states that she is doing well today. Has had no further episodes. Eating and drinking well. Her is here today, and able to provide additional information. He states that she has been having these episodes for several months, and describes the patient as becoming unresponsive. Afterwards, he states that she takes several hours to return to normal. He denies any jerking movements of the arms or legs during this time period. Patient would like to go home as soon as possible. Constitutional: Denies: Chills, Fever ENT: Denies: Head Aches Skin: Denies: Rash Pulmonary: Denies: Dyspnea, Cough, Pleuritic Chest Pain Cardiovascular: Denies: Chest Pain, Palpitations Gastrointestinal: Denies: Nausea, Vomiting, Abdominal Pain, Diarrhea, Constipation Genitourinary: Denies: Dysuria Hematologic: Denies: Bruising, Bleeding Excessively Neurological: Denies: Weakness, Numbness, Incoordination, Change in speech, Confusion, Seizures Psych: Reports: Mood Normal Objective Physical Examination General Exam: Positive: Alert, No Acute Distress Eye Exam: Positive: PERRLA, Conjunctiva & lids normal, EOMI, Negative: Sclera icteric ENT Exam: Positive: Atraumatic, Mucous membr. moist/pink, Pharynx Normal Neck Exam: Positive: Supple, Negative: JVD, thyromegaly Chest Exam: Positive: Clear to auscultation, Normal air movement Heart Exam: Positive: Rate Normal, Regular Rhythm, Normal S1, Normal S2, Negative: Murmurs, Rubs Telemetry: Positive: No significant arrhythmia Abdomen Exam: Positive: Normal bowel sounds, Soft, Negative: Tenderness, Hepatospenomegaly Extremity Exam: Positive: Normal pulses, Negative: Clubbing, Cyanosis, Edema Skin Exam: Positive: Nl turgor and temperature, Negative: Rash, Breakdown Neuro Exam: Positive: Normal Gait, Normal Speech, Cranial Nerves 3-12 NL, Reflexes 2+ Psych Exam: Positive: Mental status NL, Mood NL, Oriented x 3 Assessment /Plan Problems (1) Altered mental status Status: Acute Problem Text: Unknown etiology, although still suspicious for seizure activity , as the describes a possible post ictal. MRI and MRA were essentially normal. EEG was performed today, and resorts are pending. Neurology was consulted. Could consider CT PE, as this can also be a symptom of drop attacks, however patient has not complained of any difficulty with her breathing. Patient does have a history of compensated systolic and diastolic heart failure. Paroxysmal supraventricular tachycardia or V. tach could also present with drop attacks, although her EKG was essentially unchanged from her baseline. Discussed with the patient that if EEG is negative, she may need to be set up with a Holter or loop recorder. Last echo was July 2016, so likely relatively unchanged. -Follow up EEG results -Plan for outpatient loop recorder versus Holter -Could consult cardiology (2) Diabetes mellitus Status: Chronic Response to Treatment: Stable Problem Specific Plan: Monitor Clinically Problem Text: FS ac and hs. Insulin sliding scale ordered. (3) Diastolic CHF, acute on chronic Status: Chronic Response to Treatment: Stable Problem Specific Plan: Monitor Clinically Problem Text: appears well compensated. (4) Autoimmune hepatitis Status: Chronic Response to Treatment: Stable Problem Specific Plan: Monitor Clinically Problem Text: Follows with Dr. Mendoza (5) Iron deficiency anemia Status: Chronic Response to Treatment: Stable Problem Specific Plan: Monitor Clinically Problem Text: baseline hemoglobin between 10-12. (6) GERD (gastroesophageal reflux disease) Status: Chronic Response to Treatment: Stable Problem Specific Plan: Monitor Clinically (7) Cirrhosis Onset Date: Unknown Status: Chronic Response to Treatment: Stable Problem Specific Plan: Monitor Clinically Problem Text: On Rifaximin, Propranolol, Furosemide home dosing. Plan/VTE VTE Prophylaxis Ordered?: Yes (plavix) Plan Therapy: PT Disposition Pending EEG results, neuro recommendations, and possible cardiology evaluation VS, [facility] Vital Signs/I&O Vital Signs Date Time Temp Pulse Resp B/P (MAP) Pulse Ox O2 Delivery O2 Flow Rate FiO2 03/29/17 09:12 55 146/60 03/29/17 08:00 98.3 18 97 Room Air I&O- Last 24 Hours up to 6 AM 03/29/17 06:00 Intake Total 240 ml Balance 240 ml Laboratory Data 24H LABS Laboratory Tests 2 03/28/17 20:34: Bedside Glucose (Misc Panel) 224H 03/29/17 06:51: White Blood Count 4.6, Red Blood Count 3.05L, Hemoglobin 10.5L, Hematocrit 30.5L , Mean Corpuscular Volume 100.0H, Mean Corpuscular Hemoglobin 34.6H, Mean Corpuscular Hemoglobin Concent 34.6, Red Cell Distribution Width 13.7, Platelet Count 76L, Neutrophils (%) (Auto) 51.1, Lymphocytes (%) (Auto) 31.0, Monocytes ( %) (Auto) 7.8H, Eosinophils (%) (Auto) 3.9H, Basophils (%) (Auto) 0.9, Neutrophils # (Auto) 2.4, Lymphocytes # (Auto) 1.4L, Monocytes # (Auto) 0.4, Eosinophils # (Auto) 0.2, Basophils # (Auto) 0.0, Large Unclassified Cells % 5.4H, Large Unclassified Cells # 0.3, Prothrombin Time 18.4H, Prothromb Time International Ratio 1.52, Anion Gap 6L, Glomerular Filtration Rate > 60.0, Blood Urea Nitrogen 22H, Creatinine 0.95, Sodium Level 143, Potassium Level 3.4L , Chloride Level 109H, Carbon Dioxide Level 28, Calcium Level 7.7L, Aspartate Amino Transf (AST/SGOT) 25, Alanine Aminotransferase (ALT/SGPT) 20, Alkaline Phosphatase 54, Total Bilirubin 3.6H, Total Protein 5.1L, Albumin 2.3L, Magnesium Level 1.5L, Albumin/Globulin Ratio 0.82L 03/29/17 12:08: Bedside Glucose (Misc Panel) 297H 03/29/17 17:05: Bedside Glucose (Misc Panel) 138H CBC/BMP Laboratory Tests 03/29/17 06:51 Red Blood Count 3.05 L, Mean Corpuscular Volume 100.0 H, Mean Corpuscular Hemoglobin 34.6 H, Mean Corpuscular Hemoglobin Concent 34.6, Red Cell Distribution Width 13.7, Neutrophils (%) (Auto) 51.1, Lymphocytes (%) (Auto) 31.0, Monocytes (%) (Auto) 7.8 H, Eosinophils (%) (Auto) 3.9 H, Basophils (%) ( Auto) 0.9, Neutrophils # (Auto) 2.4, Lymphocytes # (Auto) 1.4 L, Monocytes # ( Auto) 0.4, Eosinophils # (Auto) 0.2, Basophils # (Auto) 0.0, Calcium Level 7.7 L , Aspartate Amino Transf (AST/SGOT) 25, Alanine Aminotransferase (ALT/SGPT) 20, Alkaline Phosphatase 54, Total Bilirubin 3.6 H, Total Protein 5.1 L, Albumin 2.3 L Microbiology Microbiology 03/27/17 Blood Culture - Preliminary, Resulted No growth after 24 hours . All specim... 03/27/17 Blood Culture - Preliminary, Resulted No Growth after 48 hours. All Specime... 03/27/17 Urine Culture - Final, Complete GREGORY LEE MD March 29, 2017 18:43
[2017-03-29 22:00] VITALS: BP 146/76
[2017-03-30] MEDS: NS 0.45% 1,000 ML IV SCH (03:12)
[2017-03-30 06:00] VITALS: BP 172/69
[2017-03-30 06:09] LABS: BASO % 0.7 % (0.0-1.0); EOS # 0.2 K/mm3 (0.0-0.50); EOS % 5.5 % (0.0-3.0); LARGE UNSTAINED CELL # 0.1 K/mm3 (0.0-0.4); LARGE UNSTAINED CELL % 3.3 % (0.0-4.0); LYMPH # 1.2 K/mm3 (1.5-4.5); LYMPH % 27.1 % (24.0-44.0); MEAN CORPUSCULAR HEMOGLOBIN 34.2 pg (27.0-33.0); MEAN CORPUSCULAR HGB CONC 35.1 g/dl (32.0-36.5); MEAN CORPUSCULAR VOLUME 97.6 fl (80.0-96.0); MONO # 0.4 K/mm3 (0.0-0.8); MONO % 9.5 % (0.0-5.0); NEUTROPHILS # 2.1 K/mm3 (1.8-7.7); NEUTROPHILS % 53.9 % (36.0-66.0); RED CELL DISTRIBUTION WIDTH 13.9 % (11.5-14.5); WHITE BLOOD COUNT 3.9 K/mm3 (4.0-10.0)
[2017-03-30 06:12] LABS: INR 1.37
[2017-03-30 06:14] LABS: PLATELET COUNT, AUTOMATED 76 k/mm3 (150-450)
[2017-03-30 06:25] LABS: ALBUMIN 2.3 GM/DL (3.2-5.2); ALBUMIN/GLOBULIN RATIO 0.82 (1.00-1.93); ALKALINE PHOSPHATASE 60 U/L (45-117); ALT/SGPT 24 U/L (12-78); ANION GAP 6 MEQ/L (8-16); AST/SGOT 30 U/L (15-37); BLOOD UREA NITROGEN 20 MG/DL (7-18); CALCIUM LEVEL 7.6 MG/DL (8.8-10.2); CARBON DIOXIDE LEVEL 29 MEQ/L (21-32); CHLORIDE LEVEL 106 MEQ/L (98-107); CREATININE FOR GFR 0.92 MG/DL (0.55-1.02); GLOMERULAR FILTRATION RATE > 60.0 (>39); GLUCOSE, FASTING 172 MG/DL (83-110); MAGNESIUM LEVEL 1.7 MG/DL (1.8-2.4); SODIUM LEVEL 141 MEQ/L (136-145); TOTAL PROTEIN 5.1 GM/DL (6.4-8.2)
--- NOTE | 2017-03-30 06:38 | EEG ---
DATE OF EE03/29/2017 REFERRING PHYSICIAN: Dr. Jose Gilman DIAGNOSIS: Seizure. EEG NUMBER: [id number]. HISTORY: Patient is a 76-year-old woman who was found on the ground confused with incontinence of bowels. This EEG was done to rule out epileptic potential. She had another episode of altered mental status in December 2016. She is currently on Plavix, amlodipine, Lasix, Protonix, rifaximin, propranolol, and oxycodone. TECHNICAL DESCRIPTION: This digital EEG was recorded by 21 scalp, ear and two EKG electrodes and was reviewed in bipolar and referential montages following reformatting in 10-20 international electrode placement system. INTERPRETATION: Patient was noted to be in awake and drowsy states during this EEG. Resting awake background rhythm consisted of 6-7 Hz theta activity measuring 15-40 microvolts in amplitude. Low voltage mixed frequency activity was noted in frontal head regions. Stage 1 and 2 sleep were reviewed and were symmetric bilaterally. Hyperventilation could not be performed. Photic stimulation remained unremarkable. EKG revealed normal sinus rhythm. No focal, lateralizing or epileptiform abnormalities were seen. No clinical or electrographic seizures were recorded. CONCLUSION: This EEG in awake, drowsy states, stage 1 and 2 sleep is mildly abnormal due to presence of mild generalized slowing and disorganization of background consistent with nonspecific diffuse cerebral dysfunction such as seen in encephalopathy due to multiple potential causes including toxic, metabolic, autoimmune, infectious or multifocal structural abnormalities. No clear epileptiform abnormalities were seen. Clinical correlation is recommended.
[2017-03-30] MEDS: PANTOPRAZOLE 40MG TAB (PROTONIX) PO SCH (08:10)
[2017-03-30 08:11] VITALS: BP 174/72
[2017-03-30] MEDS: FUROSEMIDE 40 MG TAB PO SCH (08:11)
[2017-03-30] MEDS: CLOPIDOGREL 75 MG TAB PO SCH (08:11)
[2017-03-30] MEDS: PROPRANOLOL 10 MG TAB PO SCH (08:11)
[2017-03-30] MEDS: FERROUS SULFATE 325MG TAB PO SCH (08:11)
[2017-03-30] MEDS: rifAXIMin 550 MG TAB (XIFAXAN) PO SCH (08:11)
[2017-03-30] MEDS: LEVEMIR (INSULIN DETEMIR) 1 UNITS/0.01ML SC SCH (08:12)
[2017-03-30] MEDS: HumaLOG INSULIN (NovoLOG) PER UNIT SC SCH (08:12)
--- NOTE | 2017-03-30 08:30 | CR ---
DATE OF CONSULTATION: 03/28/2017 REFERRING PHYSICIAN: Dr. Judy Vera REASON FOR CONSULTATION: Seizure. HISTORY OF PRESENT ILLNESS: Cici Fish is a 76-year-old woman with history of liver cirrhosis of unknown etiology, hypertension, diabetes, who was brought to [facility] after she was found unconscious by her partner. She was confused and had bowel incontinence. Her boyfriend came back from work and found her on the floor. She was semiconscious at that time. He did not see the start of her spell. Patient states that in December 2016 she had a spell in which she was sitting in the restroom and had no idea how she had got there. She has history of chronic low back pain. She denies any headaches or neck pain. She denies any dysphagia, dysarthria, diplopia. 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 FAMILY HISTORY: Significant for coronary artery disease and cancer. ALLERGIES: ASPIRIN, CIPRO, CYMBALTA, MORPHINE, NORTRIPTYLINE, PENICILLIN, SULFA. SOCIAL HISTORY: She denies alcohol. She quit smoking 10 years ago. She lives at home with her partner. REVIEW OF SYSTEMS: All systems were reviewed and found to be noncontributory except as mentioned in history present illness. CURRENT MEDICATIONS: - amlodipine 2.5 mg by mouth daily - vitamin D 2000 units by mouth daily - Plavix 75 mg by mouth daily - ferrous sulfate 325 mg by mouth daily - Lasix 40 mg by mouth daily - insulin Levemir 24 units subcutaneous twice a day - Protonix 40 mg by mouth daily - propranolol 10 mg by mouth twice a day - rifaximin 550 mg by mouth twice a day PHYSICAL EXAMINATION: Blood pressure 176/71, pulse 66, temperature 98.3. Heart: Regular rate and rhythm. Lungs: Clear to auscultation. Abdomen: Soft, nontender, nondistended. No pedal edema. Peripheral pulses are palpable. No gross musculoskeletal abnormalities. Ear, nose, throat examination is within normal limits. Patient is awake, alert, oriented to person, place and year. She is mildly drowsy and minimally confused at times. Normal speech, comprehension and repetition. Extraocular muscles are intact. No facial weakness. Tongue and uvula are midline. 5/5 strength in all four extremities. Deep tendon flexes are 1+ throughout. Normal sensation to light touch, pinprick, vibration in her feet. Gait could not be tested. No dysmetria. DIAGNOSTIC STUDIES: MRI scan of brain was reviewed and showed mild small-vessel ischemic disease of brain without any acute disease. MRA brain showed mild bilateral carotid artery atherosclerosis. ASSESSMENT: 1. Episode of loss of consciousness and she had another episode in December 2016. 2. Possible seizures, although beginning of her current episode was not witnessed by anyone. 3. 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 PLAN: 1. Electroencephalogram (EEG)EEG 2. Start Keppra 500 mg by mouth twice a day. 3. Plavix 75 mg by mouth daily. 4. She is aware that she should not be driving. Other seizure precautions were explained as well. 5. Follow with our office in 2 weeks after hospital discharge. ROSA
[2017-03-30] MEDS ORDERED: LACT10SO29 PO (08:57)
[2017-03-30] MEDS ORDERED: KEPP500T6 PO (09:04)
--- NOTE | 2017-03-30 12:11 | DSES ---
DATE OF ADMISSION: 03/27/2017 DATE OF DISCHARGE: 03/30/2017 ATTENDING PHYSICIAN: Dr. Vy Szymanski. PRIMARY CARE PROVIDER: HIGINIO Rogers. HISTORY OF PRESENT ILLNESS: This is a 76-year-old female who presented to [facility] emergency department after being found unresponsive on the floor of her home. The patient did have a positive loss of consciousness (LOC) but states that when she was laying there on the floor, she could hear emergency medical services (EMS) as well as her partner discussing her condition. This has been happening for the last 3 to 6 months. Did occur while she was in [place] as well. The partner states that he has found her multiple times confused, disoriented. The patient states it takes her about 3 to 4 hours to come out of this described stupor. HOSPITAL COURSE: The patient was subsequently admitted. Multiple tests were completed including head CT, chest x-ray, pelvic x-ray, CT abdomen and pelvis, MRA/MRI of the brain, all of which returned negative. EEG was obtained and did show that the patient has an encephalopathic pattern but no epileptiform abnormalities seen The patient was monitored in the pulmonary care unit but telemetry had no abnormal arrhythmias appreciated. Neurology consultation was obtained. Per neurology, the advised to start on Keppra, continue her Plavix and followup with neurology within the next 2 weeks. On physical exam today, vital signs are stable. She is afebrile. HEENT: Neck is supple without lymphadenopathy or jugular venous distention. Cardiovascular: Heart rate and rhythm are regular. The patient does have a grade 3/6 systolic ejection murmur. Pulmonary: Lungs are clear to auscultation bilaterally. Abdomen is soft and nontender. Extremities are without any edema. Neuro: She is alert and oriented times three. No resting tremors appreciated. Skin: The patient does have a jaundice appearance. ASSESSMENT: 1. Multiple episodes of loss of consciousness (LOC), questionable seizure disorder. 2. Hepatic encephalopathy. 3. Cirrhosis of the liver. 4. Iron deficiency anemia. 5. Diabetes. 6. Gastroesophageal reflux disease. 7. Hypertension. PLAN: The patient will be discharged home. She will followup with neurology within the next 2 weeks. She will followup next week with her primary care physician who can consider cardiology evaluation with questionable loop recorder to rule out any cardiac anomalies contributing to the patient's condition. Diet: Carbohydrate consistent, 2 gram sodium Activity as tolerated. Prescriptions include: - lactulose 15 mL by mouth twice a day. - Keppra 500 mg by mouth twice a day. - amlodipine 2. 5 mg daily - vitamin D 2000 international units by mouth daily - Plavix 75 mg by mouth daily - ferrous sulfate 325 mg by mouth daily - furosemide 40 by mouth daily - NovoLog sliding scale subcutaneously in the morning - Levemir 24 units subcutaneously twice a day - pantoprazole sodium 40 mg by mouth daily - propranolol 10 mg by mouth twice a day - rifaximine 550 mg by mouth twice a day The patient is discharged in stable and satisfactory condition with no further questions at the time of discharge. cc: MD Lucinda Ward PA-C Gerald Weinstein, MD MTDD
== END 2017-03-30 12:30 | disposition home or self-care (01) ==
LOC: M ED 19:08 → M ED INP 23:00 → M MS4PR 03-28 18:48 → M MSPAV 03-29 15:20
PROVIDERS: ADMIT Hospitalist; ATTEND Family Medicine
DX: R55 Syncope and collapse (principal); K72.90 Hepatic failure, unspecified without coma; K74.60 Unspecified cirrhosis of liver; D50.9 Iron deficiency anemia, unspecified; E11.9 Type 2 diabetes mellitus without complications; K21.9 Gastro-esophageal reflux disease without esophagitis; I10 Essential (primary) hypertension; Z79.02 Long term (current) use of antithrombotics/antiplatelets; Z79.899 Other long term (current) drug therapy; Z87.891 Personal history of nicotine dependence
CPT/HCPCS: 36415; 36600; 70450; 70544; 70551; 71010; 72170; 74177; 80048; 80053; 80076; 80306; 81001; 82140; 82150; 82550; 82553; 82803; 83036; 83605; 83690; 83735; 84443; 84484; 85025; 85610; 85730; 87040; 87086; 93005; 93041; 95819; 97161; 99285; G0378; G0480; G8978; G8979; Q9967

== ENCOUNTER → 2017-04-17 | Outpatient (REF) | payer MEDICARE ==
[~2017-04-17] MED LIST changes: +AMLO2.5T PO; +CLOP75TA2 PO; +FURO40TA2 PO; +KEPP500T6 PO; +LACT10SO29 PO; +PANT40TA2 PO
== END ==
LOC: M SFHCADAM 11:17
PROVIDERS: ATTEND Physician Assistant Medical
DX: K74.60 Unspecified cirrhosis of liver (principal); D63.8 Anemia in other chronic diseases classified elsewhere; Z53.8 Procedure and treatment not carried out for other reasons

== ENCOUNTER → 2017-04-19 | Outpatient (REF) | payer MEDICARE ==
[2017-04-19 14:07] LABS: BASO % 0.7 % (0.0-1.0); EOS # 0.1 K/mm3 (0.0-0.50); EOS % 2.5 % (0.0-3.0); INR 1.69; LARGE UNSTAINED CELL # 0.2 K/mm3 (0.0-0.4); LARGE UNSTAINED CELL % 3.7 % (0.0-4.0); LYMPH # 1.7 K/mm3 (1.5-4.5); LYMPH % 25.7 % (24.0-44.0); MEAN CORPUSCULAR HGB CONC 33.7 g/dl (32.0-36.5); MEAN CORPUSCULAR VOLUME 100.6 fl (80.0-96.0); MONO # 0.5 K/mm3 (0.0-0.8); MONO % 8.7 % (0.0-5.0); NEUTROPHILS # 3.4 K/mm3 (1.8-7.7); NEUTROPHILS % 58.7 % (36.0-66.0); PLATELET COUNT, AUTOMATED 108 k/mm3 (150-450); RED CELL DISTRIBUTION WIDTH 14.8 % (11.5-14.5); WHITE BLOOD COUNT 5.8 K/mm3 (4.0-10.0)
[2017-04-19 14:10] LABS: MEAN CORPUSCULAR HEMOGLOBIN 34.1 pg (27.0-33.0); MEAN CORPUSCULAR VOLUME 100.3 fl (80.0-96.0); RED CELL DISTRIBUTION WIDTH 14.8 % (11.5-14.5); RETIC HEMOGLOBIN CONTENT CHr 36.5 PG (24-36); RETICULOCYTE % ADVIA2120 4.6 % (0.5-1.5); WHITE BLOOD COUNT 5.9 K/mm3 (4.0-10.0)
[2017-04-19 16:19] LABS: ALBUMIN 3.2 GM/DL (3.2-5.2); ALBUMIN/GLOBULIN RATIO 1.1 (1.00-1.93); BILIRUBIN,TOTAL 4.3 MG/DL (0.2-1.0); CALCIUM LEVEL 8.9 MG/DL (8.8-10.2); CREATININE FOR GFR 1.38 MG/DL (0.55-1.02); GLOMERULAR FILTRATION RATE 39.7 (>39); POTASSIUM SERUM 4.9 MEQ/L (3.5-5.1); TOTAL PROTEIN 6.1 GM/DL (6.4-8.2)
[2017-04-19 16:23] LABS: PERCENT SATURATION 70.4 % (13.2-37.4)
== END ==
LOC: M SFHCADAM 11:42
PROVIDERS: ATTEND Physician Assistant Medical
DX: R04.0 Epistaxis (principal); I48.2 Chronic atrial fibrillation; K74.60 Unspecified cirrhosis of liver; D63.8 Anemia in other chronic diseases classified elsewhere; Z79.01 Long term (current) use of anticoagulants; R26.81 Unsteadiness on feet
CPT/HCPCS: 80053; 82105; 82140; 82728; 83550; 85025; 85027; 85046; 85610; G0463

== ENCOUNTER → 2017-04-20 | Outpatient (CLI) | payer MEDICARE ==
--- NOTE | 2017-04-20 19:07 | ECHO ---
DATE OF PROCEDURE: 04/20/2017 AGE: 76 GENDER: Female HEIGHT: 61 inches WEIGHT: 180 pounds BODY SURFACE AREA: 1.81 m2 PATIENT LOCATION: Outpatient. REFERRING PHYSICIAN: Cristina Langley DO INDICATION: Edema. 2D MEASUREMENTS: RV: 4.4 cm LV: 4.8 cm Septum: 1.2 cm Posterior wall: 1.1 cm Aortic root: 2.4 cm LA: 4.2 cm LVEF: 75% DOPPLER MEASUREMENTS: AV: 1.9 m/s LVOT: 1.1 m/s LVOT diameter: 1.5 cm MV-E: 130, A: 67, EA ratio: 1.9 Early mitral deceleration time: 134 ms E prime: 5, A prime: 5, E/E prime ratio: 26 PV: Not well visualized. RVSP: 50 mmHg IVC: 1.6 cm COMMENTS: Normal sinus rhythm/sinus bradycardia without intraventricular conduction disturbance. Mildly dilated left atrium, but normal left ventricular size. Mildly dilated right heart chamber sizes. Left ventricle (LV) wall thickness was upper limits of normal to slightly hypertrophied. On real-time imaging from the parasternal and apical projections wall motion was symmetrical and hyperkinetic. Mildly thickened mitral annulus, but normal leaflet thickness and excursion with no posterior systolic buckling. Three equal size aortic cusps with mildly thickened cusp edges, but adequate cusp separation. Normal aortic root size. No apparent intracardiac mass or pericardial effusion. Color flow Doppler study taken from the parasternal and apical projections showed no apparent aortic insufficiency, but mild - moderate mitral and at least mild tricuspid and pulmonic insufficiency. Guided continuous wave Doppler of her aortic valve showed a normal peak systolic velocity against LV outflow tract obstruction. Pulsed and continuous wave Doppler of her LV inflow tract taken from the apical four-chamber projection showed normal diastolic filling velocities against mitral stenosis. There was a more prominent early diastolic/passive filling pattern that was believed to be related to a pseudonormalization with LV diastolic dysfunction, proven by an abbreviated early mitral deceleration time and tissue Doppler of her mitral annulus. Her current estimated mean left atrial pressure was elevated. Pulsed and continuous wave Doppler was attempted, but was not diagnostically useful of her pulmonary valve and pulmonary trunk. Guided continuous wave Doppler of her tricuspid valve allowed our estimation of her right ventricular systolic pressure (moderately increased). Normal inferior vena cava (IVC) size and collapse against an elevated central venous pressure at this time. CONCLUSIONS: Borderline concentric left ventricle hypertrophy with hyperkinetic wall motion. Mildly dilated left atrium with Doppler evidence of an impairment of LV diastolic function and elevated mean left atrial pressure. Mildly dilated right heart chambers with Doppler evidence of moderate pulmonary hypertension. Normal IVC size and collapse against an elevated central venous pressure at this time. Aortic valvular sclerosis without functional abnormality. Mild mitral annular calcification with mild - moderate insufficiency.
== END ==
LOC: M CARPUL 10:50
PROVIDERS: ATTEND Family Medicine
DX: R60.9 Edema, unspecified (principal)

== ENCOUNTER → 2017-05-01 | Outpatient (CLI) | payer MEDICARE | LOC: M ADAMS 16:43 | PROVIDERS: ATTEND Physician Assistant Medical | DX: I50.32 Chronic diastolic (congestive) heart failure (principal) ==

== ENCOUNTER → 2017-05-01 | Outpatient (REF) | payer MEDICARE ==
[2017-05-01 20:20] LABS: CALCIUM LEVEL 8.6 MG/DL (8.8-10.2); CREATININE FOR GFR 1.44 MG/DL (0.55-1.02); GLOMERULAR FILTRATION RATE 37.8 (>39)
== END ==
LOC: M SFHCADAM 15:56
PROVIDERS: ATTEND Physician Assistant Medical
DX: I50.32 Chronic diastolic (congestive) heart failure (principal)

== ENCOUNTER → 2017-05-08 | Outpatient (REF) | payer MEDICARE ==
[~2017-05-08] MED LIST changes: +FERR1TAB8 PO; -FERR325T PO; +KEPP1TAB PO; -KEPP500T6 PO
== END ==
LOC: M SFHCADAM 13:53
PROVIDERS: ATTEND Physician Assistant Medical
DX: K74.60 Unspecified cirrhosis of liver (principal); I50.32 Chronic diastolic (congestive) heart failure; Z53.9 Procedure and treatment not carried out, unspecified reason

== ENCOUNTER → 2017-05-10 | Outpatient (CLI) | payer MEDICARE ==
[~2017-05-10] MED LIST changes: -FERR1TAB8 PO; +FERR325T PO; -KEPP1TAB PO; +KEPP500T6 PO
--- NOTE | 2017-05-10 14:47 | REP ---
Clinical: Possible paracentesis. Technique: Survey ultrasound examination of the four quadrants. Findings: Ultrasound examination demonstrates no significant ascites. Impression: No ascites. Paracentesis cannot be performed. Signed by Nakul Iyer MD 05/10/2017 02:39 P
[2017-05-10 15:17] LABS: ALBUMIN 3.4 GM/DL (3.2-5.2); BILIRUBIN,TOTAL 2.9 MG/DL (0.2-1.0); CALCIUM LEVEL 8.7 MG/DL (8.8-10.2); CREATININE FOR GFR 1.1 MG/DL (0.55-1.02); GLOMERULAR FILTRATION RATE 51.5 (>39); POTASSIUM SERUM 3.7 MEQ/L (3.5-5.1); TOTAL PROTEIN 6.8 GM/DL (6.4-8.2)
== END ==
LOC: M RADPRO 12:16 → M LAB 12:16
PROVIDERS: ATTEND Physician Assistant Medical
DX: K74.60 Unspecified cirrhosis of liver (principal)

== ENCOUNTER → 2017-08-11 | Outpatient (REF) | payer MEDICARE ==
[~2017-08-11] MED LIST changes: +FERR1TAB8 PO; -FERR325T PO; +KEPP1TAB PO; -KEPP500T6 PO
== END ==
LOC: M SFHCADAM 10:53
PROVIDERS: ATTEND Physician Assistant Medical
DX: E11.21 Type 2 diabetes mellitus with diabetic nephropathy (principal); E61.1 Iron deficiency; D63.8 Anemia in other chronic diseases classified elsewhere; K21.9 Gastro-esophageal reflux disease without esophagitis

== ENCOUNTER → 2017-08-12 | Outpatient (REF) | payer MEDICARE ==
[2017-08-12 16:01] LABS: BASO % 0.8 % (0.0-1.0); EOS # 0.1 10^3/uL (0.0-0.50); EOS % 2.9 % (0.0-3.0); IMMATURE GRANULOCYTE % 0.3 % (0-0); LYMPH # 1.1 10^3/uL (1.5-4.5); LYMPH % 29.5 % (24.0-44.0); MEAN CORPUSCULAR HEMOGLOBIN 32.6 pg (27.0-33.0); MEAN CORPUSCULAR HGB CONC 32.8 g/dl (32.0-36.5); MEAN CORPUSCULAR VOLUME 99.4 fl (80.0-96.0); MONO # 0.3 10^3/uL (0.0-0.8); MONO % 6.6 % (0.0-5.0); NEUTROPHILS # 2.3 10^3/uL (1.8-7.7); NEUTROPHILS % 59.9 % (36.0-66.0); PLATELET COUNT, AUTOMATED 79 10^3/uL (150-450); RED CELL DISTRIBUTION WIDTH 14.3 % (11.5-14.5); WHITE BLOOD COUNT 3.8 10^3/uL (4.0-10.0)
[2017-08-12 16:03] LABS: ADD MORPHOLOGY? NO
[2017-08-12 16:32] LABS: ALBUMIN 2.8 GM/DL (3.2-5.2); ALBUMIN/GLOBULIN RATIO 0.85 (1.00-1.93); BILIRUBIN,TOTAL 2.8 MG/DL (0.2-1.0); CREATININE FOR GFR 1.08 MG/DL (0.55-1.02); FREE T4 0.87 NG/DL (0.76-1.46); GLOMERULAR FILTRATION RATE 52.5 (>39); POTASSIUM SERUM 3.6 MEQ/L (3.5-5.1); TOTAL PROTEIN 6.1 GM/DL (6.4-8.2)
[2017-08-13 12:24] LABS: IMMATURE PLATELET FRACTION % 2.9 % (0.0-9.6)
[2017-08-14 10:50] LABS: FOLATE 20.2 NG/ML
== END ==
LOC: M SFHCADAM 10:40
PROVIDERS: ATTEND Physician Assistant Medical
DX: E11.21 Type 2 diabetes mellitus with diabetic nephropathy (principal); E61.1 Iron deficiency; D63.8 Anemia in other chronic diseases classified elsewhere; K21.9 Gastro-esophageal reflux disease without esophagitis

== ENCOUNTER → 2017-08-22 | Outpatient (CLI) | payer MEDICARE ==
--- NOTE | 2017-08-22 15:55 | REP ---
CT left foot without contrast: History: Left foot pain. No comparison radiographs. CT technique: Helical scanning is acquired and 2 mm axial images are reformatted. Coronal and sagittal multiplanar reformation images are generated and reviewed. CT findings: Vascular calcification is seen in the soft tissues. There is diffuse soft tissue swelling laterally about the ankle and to a lesser extent medially. Dorsally over the forefoot there is soft-tissue swelling as well. Diffuse osteopenia is noted. No fracture or periosteal reaction is seen. No bony destructive lesion is observed. The tibial plafond and talar dome appear intact. No osteochondral defect lesion is seen. There is no evidence of tarsal coalition. Subtalar articulation is unremarkable. There is an os perineum. Impression: No acute bony abnormality. Diffuse soft tissue swelling and edema. Diffuse osteopenia. Signed by Elias Adrian MD 08/22/2017 05:31 P
== END ==
LOC: M RAD 13:12
PROVIDERS: ATTEND Physician Assistant Medical
DX: M25.572 Pain in left ankle and joints of left foot (principal)

== ENCOUNTER → 2017-10-02 | Outpatient (REF) | payer MEDICARE ==
[2017-10-02 12:53] LABS: BASO # 0.1 10^3/uL (0.0-0.2); EOS # 0.1 10^3/uL (0.0-0.50); EOS % 2.3 % (0.0-3.0); IMMATURE GRANULOCYTE % 0.2 % (0-0); LYMPH # 1.5 10^3/uL (1.5-4.5); LYMPH % 30.2 % (24.0-44.0); MEAN CORPUSCULAR HEMOGLOBIN 33.4 pg (27.0-33.0); MEAN CORPUSCULAR HGB CONC 33.8 g/dl (32.0-36.5); MEAN CORPUSCULAR VOLUME 98.9 fl (80.0-96.0); MONO # 0.3 10^3/uL (0.0-0.8); MONO % 6.4 % (0.0-5.0); NEUTROPHILS # 2.9 10^3/uL (1.8-7.7); NEUTROPHILS % 59.9 % (36.0-66.0); PLATELET COUNT, AUTOMATED 101 10^3/uL (150-450); RED CELL DISTRIBUTION WIDTH 14.6 % (11.5-14.5); WHITE BLOOD COUNT 4.9 10^3/uL (4.0-10.0)
[2017-10-02 13:04] LABS: INR 1.39
[2017-10-02 13:44] LABS: ALBUMIN 3.2 GM/DL (3.2-5.2); ALBUMIN/GLOBULIN RATIO 1.1 (1.00-1.93); BILIRUBIN,TOTAL 4.5 MG/DL (0.2-1.0); CALCIUM LEVEL 8.5 MG/DL (8.8-10.2); CREATININE FOR GFR 1.1 MG/DL (0.55-1.02); GLOMERULAR FILTRATION RATE 51.4 (>39); POTASSIUM SERUM 3.2 MEQ/L (3.5-5.1); TOTAL PROTEIN 6.1 GM/DL (6.4-8.2)
== END ==
LOC: M SFHCADAM 11:17
PROVIDERS: ATTEND Physician Assistant Medical
DX: K74.60 Unspecified cirrhosis of liver (principal); D63.8 Anemia in other chronic diseases classified elsewhere; R04.0 Epistaxis

== ENCOUNTER → 2018-02-13 | Outpatient (REF) | payer MEDICARE ==
[2018-02-13 20:34] LABS: ALBUMIN 3.1 GM/DL (3.2-5.2); ANION GAP 9 MEQ/L (8-16); BLOOD UREA NITROGEN 18 MG/DL (7-18); CARBON DIOXIDE LEVEL 29 MEQ/L (21-32); CHLORIDE LEVEL 102 MEQ/L (98-107); CREATININE FOR GFR 1.32 MG/DL (0.55-1.30); GLOMERULAR FILTRATION RATE 41.7 (>39); GLUCOSE, FASTING 320 MG/DL (70-100); PHOSPHORUS LEVEL 2.8 MG/DL (2.5-4.9); POTASSIUM SERUM 3.3 MEQ/L (3.5-5.1); SODIUM LEVEL 140 MEQ/L (136-145)
== END ==
LOC: M SFHCADAM 11:54
DX: I50.32 Chronic diastolic (congestive) heart failure (principal); I87.2 Venous insufficiency (chronic) (peripheral)
CPT/HCPCS: 80069

== ENCOUNTER → 2018-02-22 | Outpatient (REF) | payer MEDICARE ==
[2018-02-22 15:25] LABS: BASO # 0.1 10^3/uL (0.0-0.2); BASO % 0.9 % (0.0-1.0); EOS # 0.2 10^3/uL (0.0-0.50); EOS % 2.6 % (0.0-3.0); HEMATOCRIT 32.6 % (36.0-47.0); HEMOGLOBIN 10.7 g/dl (12.0-15.5); IMMATURE GRANULOCYTE % 0.3 % (0-3.0); LYMPH # 1.4 10^3/uL (1.5-4.5); LYMPH % 22.1 % (24.0-44.0); MEAN CORPUSCULAR HEMOGLOBIN 31.9 pg (27.0-33.0); MEAN CORPUSCULAR HGB CONC 32.8 g/dl (32.0-36.5); MEAN CORPUSCULAR VOLUME 97.3 fl (80.0-96.0); MONO # 0.6 10^3/uL (0.0-0.8); MONO % 8.7 % (0.0-5.0); NEUTROPHILS # 4.2 10^3/uL (1.8-7.7); NEUTROPHILS % 65.4 % (36.0-66.0); PLATELET COUNT, AUTOMATED 148 10^3/uL (150-450); RED BLOOD COUNT 3.35 10^6/uL (4.00-5.40); RED CELL DISTRIBUTION WIDTH 15.9 % (11.5-14.5); WHITE BLOOD COUNT 6.4 10^3/uL (4.0-10.0)
[2018-02-22 15:56] LABS: ALBUMIN/GLOBULIN RATIO 0.86 (1.00-1.93); ALKALINE PHOSPHATASE 102 U/L (45-117); ALT/SGPT 26 U/L (12-78); ANION GAP 6 MEQ/L (8-16); AST/SGOT 34 U/L (7-37); BILIRUBIN,TOTAL 3.4 MG/DL (0.2-1.0); BLOOD UREA NITROGEN 20 MG/DL (7-18); CALCIUM LEVEL 8.6 MG/DL (8.8-10.2); CARBON DIOXIDE LEVEL 31 MEQ/L (21-32); CHLORIDE LEVEL 106 MEQ/L (98-107); CREATININE FOR GFR 1.25 MG/DL (0.55-1.30); GLOMERULAR FILTRATION RATE 44.4 (>39); GLUCOSE, FASTING 161 MG/DL (70-100); POTASSIUM SERUM 3.3 MEQ/L (3.5-5.1); SODIUM LEVEL 143 MEQ/L (136-145); TOTAL PROTEIN 6.5 GM/DL (6.4-8.2)
[2018-02-23 08:51] LABS: ALPHA FETOPROTEIN TUMOR QUANT 4.2 NG/ML (<8.1)
== END ==
LOC: M LABDRAW1 14:23
DX: K74.60 Unspecified cirrhosis of liver (principal); R18.8 Other ascites
CPT/HCPCS: 80053

== ENCOUNTER → 2018-03-20 | Outpatient (REF) | payer MEDICARE ==
[2018-03-20 19:33] LABS: BASO # 0.1 10^3/uL (0.0-0.2); BASO % 0.8 % (0.0-1.0); EOS # 0.2 10^3/uL (0.0-0.50); EOS % 2.9 % (0.0-3.0); HEMATOCRIT 35.7 % (36.0-47.0); HEMOGLOBIN 11.9 g/dl (12.0-15.5); IMMATURE GRANULOCYTE % 0.3 % (0-3.0); LYMPH # 1.7 10^3/uL (1.5-4.5); MEAN CORPUSCULAR HGB CONC 33.3 g/dl (32.0-36.5); MONO # 0.5 10^3/uL (0.0-0.8); MONO % 6.2 % (0.0-5.0); NEUTROPHILS # 4.8 10^3/uL (1.8-7.7); NEUTROPHILS % 66.8 % (36.0-66.0); PLATELET COUNT, AUTOMATED 125 10^3/uL (150-450); RED BLOOD COUNT 3.72 10^6/uL (4.00-5.40); WHITE BLOOD COUNT 7.3 10^3/uL (4.0-10.0)
[2018-03-20 19:57] LABS: ALBUMIN 3.4 GM/DL (3.2-5.2); ANION GAP 6 MEQ/L (8-16); BLOOD UREA NITROGEN 30 MG/DL (7-18); CALCIUM LEVEL 8.7 MG/DL (8.8-10.2); CARBON DIOXIDE LEVEL 33 MEQ/L (21-32); CHLORIDE LEVEL 101 MEQ/L (98-107); CREATININE FOR GFR 1.65 MG/DL (0.55-1.30); GLOMERULAR FILTRATION RATE 32.2 (>39); GLUCOSE, FASTING 162 MG/DL (70-100); PHOSPHORUS LEVEL 2.9 MG/DL (2.5-4.9); SODIUM LEVEL 140 MEQ/L (136-145)
== END ==
LOC: M SFHCADAM 14:23
DX: K74.60 Unspecified cirrhosis of liver (principal); D63.8 Anemia in other chronic diseases classified elsewhere
CPT/HCPCS: 80069

== ENCOUNTER → 2018-03-23 | Outpatient (CLI) | payer MEDICARE | LOC: M ADAMS 10:19 | DX: K74.60 Unspecified cirrhosis of liver (principal) | CPT/HCPCS: 36415 ==

== ENCOUNTER → 2018-03-24 | Outpatient (CLI) | payer MEDICARE ==
[2018-03-24 17:34] LABS: BASO % 0.5 % (0.0-1.0); EOS # 0.1 10^3/uL (0.0-0.50); EOS % 2.4 % (0.0-3.0); IMMATURE GRANULOCYTE % 0.3 % (0-3.0); LYMPH # 1.2 10^3/uL (1.5-4.5); LYMPH % 20.5 % (24.0-44.0); MEAN CORPUSCULAR HEMOGLOBIN 31.7 pg (27.0-33.0); MEAN CORPUSCULAR HGB CONC 32.4 g/dl (32.0-36.5); MONO # 0.3 10^3/uL (0.0-0.8); MONO % 4.9 % (0.0-5.0); NEUTROPHILS # 4.1 10^3/uL (1.8-7.7); NEUTROPHILS % 71.4 % (36.0-66.0); RED BLOOD COUNT 3.47 10^6/uL (4.00-5.40); RED CELL DISTRIBUTION WIDTH 14.8 % (11.5-14.5); WHITE BLOOD COUNT 5.8 10^3/uL (4.0-10.0)
[2018-03-24 17:44] LABS: ALBUMIN 3.5 GM/DL (3.2-5.2); ANION GAP 9 MEQ/L (8-16); BLOOD UREA NITROGEN 25 MG/DL (7-18); CALCIUM LEVEL 8.4 MG/DL (8.8-10.2); CARBON DIOXIDE LEVEL 28 MEQ/L (21-32); CHLORIDE LEVEL 100 MEQ/L (98-107); CREATININE FOR GFR 1.36 MG/DL (0.55-1.30); GLOMERULAR FILTRATION RATE 40.2 (>39); GLUCOSE, FASTING 317 MG/DL (70-100); PHOSPHORUS LEVEL 2.8 MG/DL (2.5-4.9); POTASSIUM SERUM 3.5 MEQ/L (3.5-5.1); SODIUM LEVEL 137 MEQ/L (136-145)
[2018-03-24 18:39] LABS: PLATELET COUNT, AUTOMATED 92 10^3/uL (150-450)
[2018-03-24 18:40] LABS: IMMATURE PLATELET FRACTION % 3.7 % (0.0-9.6)
== END ==
LOC: M ADAMS 08:35
DX: K74.60 Unspecified cirrhosis of liver (principal)
CPT/HCPCS: 80069

== ENCOUNTER 2018-04-17 02:42 | Inpatient (IN) | payer MEDICARE ==
[2018-04-17 04:02] LABS: BASO % 0.4 % (0.0-1.0); EOS # 0.1 10^3/uL (0.0-0.50); EOS % 0.9 % (0.0-3.0); HEMATOCRIT 30.9 % (36.0-47.0); HEMOGLOBIN 10.4 g/dl (12.0-15.5); IMMATURE GRANULOCYTE % 0.2 % (0-3.0); LYMPH # 1.1 10^3/uL (1.5-4.5); LYMPH % 19.1 % (24.0-44.0); MEAN CORPUSCULAR HEMOGLOBIN 31.5 pg (27.0-33.0); MEAN CORPUSCULAR HGB CONC 33.7 g/dl (32.0-36.5); MEAN CORPUSCULAR VOLUME 93.6 fl (80.0-96.0); MONO # 0.3 10^3/uL (0.0-0.8); MONO % 5.6 % (0.0-5.0); NEUTROPHILS # 4.1 10^3/uL (1.8-7.7); NEUTROPHILS % 73.8 % (36.0-66.0); PLATELET COUNT, AUTOMATED 123 10^3/uL (150-450); RED CELL DISTRIBUTION WIDTH 14.7 % (11.5-14.5); WHITE BLOOD COUNT 5.5 10^3/uL (4.0-10.0)
[2018-04-17 04:03] LABS: BEDSIDE GLUCOSE 335 MG/DL (83-110)
[2018-04-17 04:18] LABS: ALBUMIN 3.1 GM/DL (3.2-5.2); ALBUMIN/GLOBULIN RATIO 0.84 (1.00-1.93); ALKALINE PHOSPHATASE 87 U/L (45-117); ALT/SGPT 24 U/L (12-78); ANION GAP 11 MEQ/L (8-16); AST/SGOT 62 U/L (7-37); BILIRUBIN,DIRECT 0.6 MG/DL (0.0-0.2); BILIRUBIN,TOTAL 3.7 MG/DL (0.2-1.0); BLOOD UREA NITROGEN 27 MG/DL (7-18); CALCIUM LEVEL 8.1 MG/DL (8.8-10.2); CARBON DIOXIDE LEVEL 25 MEQ/L (21-32); CHLORIDE LEVEL 105 MEQ/L (98-107); CPK CREATINE PHOSPHOKINASE 97 U/L (26-192); CREATININE FOR GFR 1.77 MG/DL (0.55-1.30); GLOMERULAR FILTRATION RATE 29.7 (>39); GLUCOSE, FASTING 334 MG/DL (70-100); POTASSIUM SERUM 4.8 MEQ/L (3.5-5.1); SODIUM LEVEL 141 MEQ/L (136-145); TOTAL PROTEIN 6.8 GM/DL (6.4-8.2); TROPONIN I < 0.02 NG/ML (< 0.10)
[2018-04-17] MEDS: NS 1,000 ML IV (04:18)
[2018-04-17 04:24] LABS: CK-MB VALUE MASS < 1.0 NG/ML (<3.6); MB/CK RELATIVE INDEX 1.03 (< OR =4)
[2018-04-17 04:26] LABS: ACETAMINOPHEN LEVEL < 2.0 UG/ML (10.0-30.0); ETHYL ALCOHOL (ETHANOL) < 0.003 % (0.000-0.010); SALICYLATE LEVEL < 1.7 MG/DL (5.0-30.0)
[2018-04-17 04:35] LABS: ABG BASE EXCESS 2.3 (-2.0-2.0); ABG HCO3 25.2 MEQ/L (22.0-26.0); ABG O2 SATURATION 98.3 % (95.0-99.0); ABG PARTIAL PRESSURE CO2 32.8 mmHg (35.0-45.0); ABG PARTIAL PRESSURE O2 128.4 mmHg (75.0-100.0); ABG STANDARD HCO3 26.6 MEQ/L (22.0-26.0); ABG TOTAL CO2 26.2 MEQ/L (23.0-31.0); ABG pH (ARTERIAL) 7.503 UNITS (7.350-7.450)
[2018-04-17 04:36] LABS: AMMONIA 158 uMOL/L (<32)
[2018-04-17 05:03] LABS: INR 1.92; PROTHROMBIN TIME 22.6 SECONDS (12.4-14.5)
[2018-04-17 05:04] LABS: PARTIAL THROMBOPLASTIN TIME 49.4 SECONDS (26.8-37.9)
[2018-04-17] MEDS: LACTULOSE 20 GM/30 ML SYRUP UD PR (06:39)
[2018-04-17] MEDS ORDERED: LACTULOSE 20 GM/30 ML SYRUP UD PR (07:00)
[2018-04-17] MEDS ORDERED: PILL CRUSHER/CUTTER 1 EACH XX (07:15)
[2018-04-17 07:16] LABS: OSMOLALITY SERUM 311 MOSM/KG (280-301)
[2018-04-17 08:42] LABS: LACTIC ACID SEPSIS PROTOCOL 1.8 MMOL/L (0.4-2.0)
[2018-04-17] MEDS: amLODIPine 5 MG TAB PO ×2 (08:55→20:52)
[2018-04-17] MEDS: POTASSIUM CHLORIDE 10 MEQ SR TABLET PO ×2 (08:55→20:51)
[2018-04-17] MEDS: FERROUS SULFATE 325MG TAB PO (08:55)
[2018-04-17] MEDS: SPIRONOLACTONE 25 MG TAB PO (08:55)
[2018-04-17] MEDS: PROPRANOLOL 10 MG TAB PO ×2 (08:56→20:52)
[2018-04-17] MEDS: VITAMIN D 1,000 INTERNATIONAL UNITS TABLET PO (08:56)
[2018-04-17] MEDS: PANTOPRAZOLE 40MG TAB (PROTONIX) PO (08:56)
[2018-04-17] MEDS: ATORVASTATIN 20 MG TAB PO (08:56)
[2018-04-17] MEDS: rifAXIMin 550 MG TAB (XIFAXAN) PO ×2 (08:56→20:51)
[2018-04-17] MEDS: FUROSEMIDE 40 MG TAB PO ×2 (08:56→20:51)
[2018-04-17] MEDS ORDERED: GLUCAGON FOR INJ 1 MG VIAL (J1610) SC (09:30)
[2018-04-17] MEDS ORDERED: GLUCOSE 4 GM CHEW TABLET PO (09:30)
[2018-04-17] MEDS ORDERED: DEXTROSE 50% 50 ML SYRINGE IV (09:30)
[2018-04-17 11:55] LABS: BEDSIDE GLUCOSE 278 MG/DL (83-110)
[2018-04-17] MEDS: HumaLOG INSULIN (NovoLOG) PER UNIT SC ×2 (11:59→18:35)
[2018-04-17] MEDS: LACTULOSE 20 GM/30 ML SYRUP UD PO ×2 (13:27→18:00)
[2018-04-17] MEDS: CLOPIDOGREL 75 MG TAB PO (13:27)
[2018-04-17] MEDS: APIXABAN 5 MG TAB (ELIQUIS) PO ×2 (13:27→20:51)
[2018-04-17 17:40] LABS: BEDSIDE GLUCOSE 220 MG/DL (83-110)
[2018-04-18 00:11] LABS: BEDSIDE GLUCOSE 205 MG/DL (83-110)
[2018-04-18] MEDS: LACTULOSE 20 GM/30 ML SYRUP UD PO ×6 (00:16→21:33)
[2018-04-18 05:47] LABS: BEDSIDE GLUCOSE 203 MG/DL (83-110)
[2018-04-18] MEDS: HumaLOG INSULIN (NovoLOG) PER UNIT SC ×5 (05:50→23:49)
[2018-04-18 05:53] LABS: BASO # 0.1 10^3/uL (0.0-0.2); BASO % 0.7 % (0.0-1.0); EOS # 0.1 10^3/uL (0.0-0.50); EOS % 1.5 % (0.0-3.0); HEMATOCRIT 29.4 % (36.0-47.0); HEMOGLOBIN 9.8 g/dl (12.0-15.5); IMMATURE GRANULOCYTE % 0.3 % (0-3.0); LYMPH # 1.5 10^3/uL (1.5-4.5); LYMPH % 21.7 % (24.0-44.0); MEAN CORPUSCULAR HEMOGLOBIN 32.2 pg (27.0-33.0); MEAN CORPUSCULAR HGB CONC 33.3 g/dl (32.0-36.5); MEAN CORPUSCULAR VOLUME 96.7 fl (80.0-96.0); MONO # 0.5 10^3/uL (0.0-0.8); MONO % 6.6 % (0.0-5.0); NEUTROPHILS # 4.8 10^3/uL (1.8-7.7); NEUTROPHILS % 69.2 % (36.0-66.0); RED BLOOD COUNT 3.04 10^6/uL (4.00-5.40); RED CELL DISTRIBUTION WIDTH 14.9 % (11.5-14.5); WHITE BLOOD COUNT 6.9 10^3/uL (4.0-10.0)
[2018-04-18 06:08] LABS: ALBUMIN 2.5 GM/DL (3.2-5.2); ALBUMIN/GLOBULIN RATIO 0.81 (1.00-1.93); ALKALINE PHOSPHATASE 72 U/L (45-117); ALT/SGPT 19 U/L (12-78); ANION GAP 8 MEQ/L (8-16); AST/SGOT 22 U/L (7-37); BILIRUBIN,TOTAL 5.3 MG/DL (0.2-1.0); BLOOD UREA NITROGEN 24 MG/DL (7-18); CALCIUM LEVEL 8.1 MG/DL (8.8-10.2); CARBON DIOXIDE LEVEL 26 MEQ/L (21-32); CHLORIDE LEVEL 111 MEQ/L (98-107); CREATININE FOR GFR 1.23 MG/DL (0.55-1.30); GLOMERULAR FILTRATION RATE 45.2 (>39); GLUCOSE, FASTING 210 MG/DL (70-100); POTASSIUM SERUM 3.2 MEQ/L (3.5-5.1); SODIUM LEVEL 145 MEQ/L (136-145); TOTAL PROTEIN 5.6 GM/DL (6.4-8.2)
[2018-04-18 06:11] LABS: AMMONIA 28 uMOL/L (<32)
[2018-04-18 06:20] LABS: PLATELET COUNT, AUTOMATED 96 10^3/uL (150-450)
[2018-04-18 06:21] LABS: IMMATURE PLATELET FRACTION % 1.8 % (0.0-9.6)
[2018-04-18] MEDS: VITAMIN D 1,000 INTERNATIONAL UNITS TABLET PO (09:18)
[2018-04-18] MEDS: FERROUS SULFATE 325MG TAB PO (09:18)
[2018-04-18] MEDS: rifAXIMin 550 MG TAB (XIFAXAN) PO ×2 (09:18→21:34)
[2018-04-18] MEDS: ATORVASTATIN 20 MG TAB PO (09:18)
[2018-04-18] MEDS: FUROSEMIDE 40 MG TAB PO ×2 (09:18→21:34)
[2018-04-18] MEDS: PANTOPRAZOLE 40MG TAB (PROTONIX) PO (09:19)
[2018-04-18] MEDS: amLODIPine 5 MG TAB PO ×2 (09:19→21:35)
[2018-04-18] MEDS: SPIRONOLACTONE 25 MG TAB PO (09:19)
[2018-04-18] MEDS: POTASSIUM CHLORIDE 10% LIQ 20 MEQ/15 ML UDC PO (09:19)
[2018-04-18] MEDS: POTASSIUM CHLORIDE 10 MEQ SR TABLET PO ×2 (09:19→21:34)
[2018-04-18] MEDS: PROPRANOLOL 10 MG TAB PO ×2 (09:20→21:36)
[2018-04-18 11:33] LABS: BEDSIDE GLUCOSE 276 MG/DL (83-110)
[2018-04-18] MEDS: CLOPIDOGREL 75 MG TAB PO (12:26)
[2018-04-18] MEDS: APIXABAN 5 MG TAB (ELIQUIS) PO ×2 (12:26→21:34)
[2018-04-18 16:57] LABS: BEDSIDE GLUCOSE 279 MG/DL (83-110)
[2018-04-18] MEDS: LEVEMIR (INSULIN DETEMIR) 1 UNITS/0.01ML SC (21:34)
[2018-04-18 23:31] LABS: BEDSIDE GLUCOSE 362 MG/DL (83-110)
[2018-04-19 05:47] LABS: BEDSIDE GLUCOSE 190 MG/DL (83-110)
[2018-04-19] MEDS: HumaLOG INSULIN (NovoLOG) PER UNIT SC (06:00)
[2018-04-19 06:41] LABS: HEMATOCRIT 27.1 % (36.0-47.0); HEMOGLOBIN 9.5 g/dl (12.0-15.5); MEAN CORPUSCULAR HEMOGLOBIN 32.2 pg (27.0-33.0); MEAN CORPUSCULAR HGB CONC 35.1 g/dl (32.0-36.5); MEAN CORPUSCULAR VOLUME 91.9 fl (80.0-96.0); RED BLOOD COUNT 2.95 10^6/uL (4.00-5.40); RED CELL DISTRIBUTION WIDTH 14.6 % (11.5-14.5); WHITE BLOOD COUNT 6.5 10^3/uL (4.0-10.0)
[2018-04-19 06:44] LABS: PLATELET COUNT, AUTOMATED 97 10^3/uL (150-450)
[2018-04-19 06:45] LABS: IMMATURE PLATELET FRACTION % 1.8 % (0.0-9.6)
[2018-04-19 07:21] LABS: ALBUMIN 2.4 GM/DL (3.2-5.2); ALBUMIN/GLOBULIN RATIO 0.77 (1.00-1.93); ALKALINE PHOSPHATASE 76 U/L (45-117); ALT/SGPT 18 U/L (12-78); AST/SGOT 26 U/L (7-37); BILIRUBIN,TOTAL 4.5 MG/DL (0.2-1.0); CHLORIDE LEVEL 108 MEQ/L (98-107); CREATININE FOR GFR 1.14 MG/DL (0.55-1.30); GLOMERULAR FILTRATION RATE 49.3 (>39); POTASSIUM SERUM 3.5 MEQ/L (3.5-5.1); SODIUM LEVEL 140 MEQ/L (136-145); TOTAL PROTEIN 5.5 GM/DL (6.4-8.2)
[2018-04-19 07:31] LABS: ANION GAP 8 MEQ/L (8-16); BLOOD UREA NITROGEN 18 MG/DL (7-18); CALCIUM LEVEL 7.7 MG/DL (8.8-10.2); CARBON DIOXIDE LEVEL 24 MEQ/L (21-32); GLUCOSE, FASTING 186 MG/DL (70-100)
[2018-04-19] MEDS: LACTULOSE 20 GM/30 ML SYRUP UD PO (08:36)
[2018-04-19] MEDS: ATORVASTATIN 20 MG TAB PO (08:36)
[2018-04-19] MEDS: VITAMIN D 1,000 INTERNATIONAL UNITS TABLET PO (08:37)
[2018-04-19] MEDS: SPIRONOLACTONE 25 MG TAB PO (08:37)
[2018-04-19] MEDS: PROPRANOLOL 10 MG TAB PO (08:37)
[2018-04-19] MEDS: CLOPIDOGREL 75 MG TAB PO (08:37)
[2018-04-19] MEDS: amLODIPine 5 MG TAB PO (08:38)
[2018-04-19] MEDS: rifAXIMin 550 MG TAB (XIFAXAN) PO (08:38)
[2018-04-19] MEDS: POTASSIUM CHLORIDE 10 MEQ SR TABLET PO (08:38)
[2018-04-19] MEDS: APIXABAN 5 MG TAB (ELIQUIS) PO (08:38)
[2018-04-19] MEDS: PANTOPRAZOLE 40MG TAB (PROTONIX) PO (08:39)
[2018-04-19] MEDS: LEVEMIR (INSULIN DETEMIR) 1 UNITS/0.01ML SC (08:39)
[2018-04-19] MEDS: FERROUS SULFATE 325MG TAB PO (08:39)
[2018-04-19] MEDS: FUROSEMIDE 40 MG TAB PO (08:39)
== END 2018-04-19 11:00 | disposition home or self-care (01) | DRG 442 ==
LOC: M ED 02:42 → M MS5PR 04-18 17:44 → M ED INP 06:57 → M PCU 15:18
DX: K72.90 Hepatic failure, unspecified without coma (principal); I85.10 Secondary esophageal varices without bleeding; I11.9 Hypertensive heart disease without heart failure; K21.9 Gastro-esophageal reflux disease without esophagitis; I48.0 Paroxysmal atrial fibrillation; I25.10 Atherosclerotic heart disease of native coronary artery without angina pectoris; E78.5 Hyperlipidemia, unspecified; E11.9 Type 2 diabetes mellitus without complications; K74.60 Unspecified cirrhosis of liver; Z79.02 Long term (current) use of antithrombotics/antiplatelets; Z79.4 Long term (current) use of insulin; Z88.0 Allergy status to penicillin; Z88.2 Allergy status to sulfonamides; Z88.1 Allergy status to other antibiotic agents; Z88.6 Allergy status to analgesic agent; Z87.891 Personal history of nicotine dependence; Z91.14 Patient's other noncompliance with medication regimen

== ENCOUNTER 2018-04-30 11:02 | Inpatient (IN) | payer MEDICARE ==
[2018-04-30] MEDS: SPIRONOLACTONE 25 MG TAB PO (09:00)
[2018-04-30 12:03] LABS: HEMATOCRIT 27.6 % (36.0-47.0); HEMOGLOBIN 9.5 g/dl (12.0-15.5); MEAN CORPUSCULAR HEMOGLOBIN 32.6 pg (27.0-33.0); MEAN CORPUSCULAR HGB CONC 34.4 g/dl (32.0-36.5); MEAN CORPUSCULAR VOLUME 94.8 fl (80.0-96.0); RED BLOOD COUNT 2.91 10^6/uL (4.00-5.40); RED CELL DISTRIBUTION WIDTH 15.6 % (11.5-14.5); WHITE BLOOD COUNT 4.3 10^3/uL (4.0-10.0)
[2018-04-30 12:04] LABS: PLATELET COUNT, AUTOMATED 93 10^3/uL (150-450)
[2018-04-30 12:05] LABS: IMMATURE PLATELET FRACTION % 2.1 % (0.0-9.6)
[2018-04-30 12:21] LABS: INR 1.66; PROTHROMBIN TIME 20.1 SECONDS (12.4-14.5)
[2018-04-30 12:22] LABS: PARTIAL THROMBOPLASTIN TIME 39.4 SECONDS (26.8-37.9)
[2018-04-30 12:24] LABS: AMMONIA 65 uMOL/L (<32)
[2018-04-30 12:25] LABS: ANION GAP 11 MEQ/L (8-16); BLOOD UREA NITROGEN 23 MG/DL (7-18); CALCIUM LEVEL 8.6 MG/DL (8.8-10.2); CARBON DIOXIDE LEVEL 27 MEQ/L (21-32); CHLORIDE LEVEL 106 MEQ/L (98-107); CK-MB VALUE MASS 1.8 NG/ML (<3.6); CPK CREATINE PHOSPHOKINASE 63 U/L (26-192); CREATININE FOR GFR 1.15 MG/DL (0.55-1.30); GLOMERULAR FILTRATION RATE 48.8 (>39); GLUCOSE, FASTING 247 MG/DL (70-100); MB/CK RELATIVE INDEX 2.85 (< OR =4); SODIUM LEVEL 144 MEQ/L (136-145)
[2018-04-30 13:21] LABS: KETONE, URINE AUTO RFX NEGATIVE (NEGATIVE); LEUKOCYTE ESTERASE UR AUTO RFX 3+ (NEGATIVE); MUCUS, URINE RFX SMALL (NEGATIVE); NITRITE, URINE AUTO RFX NEGATIVE (NEGATIVE); RBC, URINE AUTO RFX 3 /HPF (0-3); SPECIFIC GRAVITY UR AUTO RFX 1.014 (1.002-1.035); SQUAM EPITHELIAL CELL UR AURFX 1 /HPF (0-6); WBC, URINE AUTO RFX TNTC /HPF (0-3)
[2018-04-30] MEDS: NITROFURANTOIN (MACROBID) 100 MG CAP PO ×2 (14:00→22:15)
[2018-04-30 14:13] LABS: TROPONIN I < 0.02 NG/ML (< 0.10)
[2018-04-30] MEDS ORDERED: ONDANSETRON 4MG/2ML VIAL (J2405) IV (16:00)
[2018-04-30] MEDS: LACTULOSE 20 GM/30 ML SYRUP UD PO ×3 (19:40→22:17)
[2018-04-30] MEDS ORDERED: cefTRIAXone SOD 1 GM in D5W MINI-BAG PLUS 50 ML IV (21:00)
[2018-04-30] MEDS ORDERED: GLUCOSE 4 GM CHEW TABLET PO (21:45)
[2018-04-30] MEDS ORDERED: GLUCAGON FOR INJ 1 MG VIAL (J1610) SC (21:45)
[2018-04-30] MEDS ORDERED: DEXTROSE 50% 50 ML SYRINGE IV (21:45)
[2018-04-30 22:06] LABS: BEDSIDE GLUCOSE 321 MG/DL (83-110)
[2018-04-30] MEDS: ATORVASTATIN 20 MG TAB PO (22:11)
[2018-04-30] MEDS: APIXABAN 5 MG TAB (ELIQUIS) PO (22:11)
[2018-04-30] MEDS: amLODIPine 5 MG TAB PO (22:12)
[2018-04-30] MEDS: rifAXIMin 550 MG TAB (XIFAXAN) PO (22:12)
[2018-04-30] MEDS: CLOPIDOGREL 75 MG TAB PO (22:12)
[2018-04-30] MEDS: FUROSEMIDE 40 MG TAB PO (22:12)
[2018-04-30] MEDS: POTASSIUM CHLORIDE 10 MEQ SR TABLET PO (22:13)
[2018-04-30] MEDS: FERROUS SULFATE 325MG TAB PO (22:13)
[2018-04-30] MEDS: VITAMIN D 1,000 INTERNATIONAL UNITS TABLET PO (22:15)
[2018-04-30] MEDS: PANTOPRAZOLE 40MG TAB (PROTONIX) PO (22:15)
[2018-04-30] MEDS ORDERED: SLF 3 ML SYR IV (22:15)
[2018-04-30] MEDS: LEVEMIR (INSULIN DETEMIR) 1 UNITS/0.01ML SC (22:16)
[2018-05-01] MEDS: SLF 3 ML SYR IV ×3 (05:12→21:18)
[2018-05-01 05:15] LABS: BASO # 0.1 10^3/uL (0.0-0.2); BASO % 1.1 % (0.0-1.0); EOS # 0.1 10^3/uL (0.0-0.50); EOS % 2.1 % (0.0-3.0); HEMATOCRIT 29.4 % (36.0-47.0); IMMATURE GRANULOCYTE % 0.4 % (0-3.0); MEAN CORPUSCULAR HEMOGLOBIN 32.7 pg (27.0-33.0); MEAN CORPUSCULAR VOLUME 96.1 fl (80.0-96.0); MONO # 0.3 10^3/uL (0.0-0.8); MONO % 5.5 % (0.0-5.0); NEUTROPHILS # 3.8 10^3/uL (1.8-7.7); NEUTROPHILS % 71.9 % (36.0-66.0); RED BLOOD COUNT 3.06 10^6/uL (4.00-5.40); RED CELL DISTRIBUTION WIDTH 15.8 % (11.5-14.5); WHITE BLOOD COUNT 5.3 10^3/uL (4.0-10.0)
[2018-05-01 05:21] LABS: PLATELET COUNT, AUTOMATED 97 10^3/uL (150-450)
[2018-05-01 05:39] LABS: ALBUMIN 2.8 GM/DL (3.2-5.2); ALKALINE PHOSPHATASE 87 U/L (45-117); ALT/SGPT 26 U/L (12-78); ANION GAP 9 MEQ/L (8-16); AST/SGOT 27 U/L (7-37); BILIRUBIN,TOTAL 3.7 MG/DL (0.2-1.0); BLOOD UREA NITROGEN 22 MG/DL (7-18); CALCIUM LEVEL 8.4 MG/DL (8.8-10.2); CARBON DIOXIDE LEVEL 29 MEQ/L (21-32); CHLORIDE LEVEL 107 MEQ/L (98-107); CREATININE FOR GFR 1.17 MG/DL (0.55-1.30); GLOMERULAR FILTRATION RATE 47.9 (>39); GLUCOSE, FASTING 282 MG/DL (70-100); POTASSIUM SERUM 3.7 MEQ/L (3.5-5.1); SODIUM LEVEL 145 MEQ/L (136-145); TOTAL PROTEIN 5.9 GM/DL (6.4-8.2)
[2018-05-01 06:01] LABS: AMMONIA 52 uMOL/L (<32)
[2018-05-01] MEDS: APIXABAN 5 MG TAB (ELIQUIS) PO ×2 (08:14→21:17)
[2018-05-01] MEDS: rifAXIMin 550 MG TAB (XIFAXAN) PO ×2 (08:14→21:17)
[2018-05-01] MEDS: ATORVASTATIN 20 MG TAB PO (08:15)
[2018-05-01] MEDS: CLOPIDOGREL 75 MG TAB PO (08:15)
[2018-05-01] MEDS: FUROSEMIDE 40 MG TAB PO ×2 (08:15→21:16)
[2018-05-01] MEDS: SPIRONOLACTONE 25 MG TAB PO (08:15)
[2018-05-01] MEDS: PANTOPRAZOLE 40MG TAB (PROTONIX) PO (08:15)
[2018-05-01] MEDS: POTASSIUM CHLORIDE 10 MEQ SR TABLET PO ×2 (08:16→21:17)
[2018-05-01] MEDS: NITROFURANTOIN (MACROBID) 100 MG CAP PO ×2 (08:17→21:17)
[2018-05-01] MEDS: LACTULOSE 20 GM/30 ML SYRUP UD PO ×4 (08:18→20:37)
[2018-05-01] MEDS: FERROUS SULFATE 325MG TAB PO (08:18)
[2018-05-01] MEDS: amLODIPine 5 MG TAB PO ×2 (08:18→21:17)
[2018-05-01] MEDS: HumaLOG INSULIN (NovoLOG) PER UNIT SC ×3 (08:19→17:46)
[2018-05-01] MEDS: LEVEMIR (INSULIN DETEMIR) 1 UNITS/0.01ML SC ×2 (08:20→21:18)
[2018-05-01 11:40] LABS: BEDSIDE GLUCOSE 417 MG/DL (83-110)
[2018-05-01] MEDS: VITAMIN D 1,000 INTERNATIONAL UNITS TABLET PO (12:56)
[2018-05-01 16:21] LABS: BEDSIDE GLUCOSE 421 MG/DL (83-110)
[2018-05-01 20:43] LABS: BEDSIDE GLUCOSE 320 MG/DL (83-110)
[2018-05-02 05:51] LABS: BASO # 0.1 10^3/uL (0.0-0.2); BASO % 1.1 % (0.0-1.0); EOS # 0.2 10^3/uL (0.0-0.50); EOS % 4.8 % (0.0-3.0); HEMOGLOBIN 10.5 g/dl (12.0-15.5); IMMATURE GRANULOCYTE % 0.2 % (0-3.0); LYMPH # 1.1 10^3/uL (1.5-4.5); LYMPH % 25.2 % (24.0-44.0); MEAN CORPUSCULAR HEMOGLOBIN 32.7 pg (27.0-33.0); MEAN CORPUSCULAR VOLUME 93.5 fl (80.0-96.0); MONO # 0.3 10^3/uL (0.0-0.8); MONO % 6.6 % (0.0-5.0); NEUTROPHILS # 2.7 10^3/uL (1.8-7.7); NEUTROPHILS % 62.1 % (36.0-66.0); RED BLOOD COUNT 3.21 10^6/uL (4.00-5.40); RED CELL DISTRIBUTION WIDTH 15.3 % (11.5-14.5); WHITE BLOOD COUNT 4.4 10^3/uL (4.0-10.0)
[2018-05-02 05:59] LABS: PLATELET COUNT, AUTOMATED 90 10^3/uL (150-450)
[2018-05-02] MEDS: SLF 3 ML SYR IV ×2 (06:00→13:19)
[2018-05-02 06:03] LABS: IMMATURE PLATELET FRACTION % 2.6 % (0.0-9.6)
[2018-05-02 06:08] LABS: ALBUMIN 2.6 GM/DL (3.2-5.2); ALBUMIN/GLOBULIN RATIO 0.79 (1.00-1.93); ALKALINE PHOSPHATASE 83 U/L (45-117); ALT/SGPT 21 U/L (12-78); ANION GAP 9 MEQ/L (8-16); AST/SGOT 29 U/L (7-37); BILIRUBIN,TOTAL 3.9 MG/DL (0.2-1.0); BLOOD UREA NITROGEN 18 MG/DL (7-18); CALCIUM LEVEL 7.9 MG/DL (8.8-10.2); CARBON DIOXIDE LEVEL 26 MEQ/L (21-32); CHLORIDE LEVEL 105 MEQ/L (98-107); CREATININE FOR GFR 1.03 MG/DL (0.55-1.30); GLOMERULAR FILTRATION RATE 55.5 (>39); GLUCOSE, FASTING 219 MG/DL (70-100); POTASSIUM SERUM 3.6 MEQ/L (3.5-5.1); SODIUM LEVEL 140 MEQ/L (136-145); TOTAL PROTEIN 5.9 GM/DL (6.4-8.2)
[2018-05-02 07:12] LABS: AMMONIA 56 uMOL/L (<32)
[2018-05-02] MEDS: rifAXIMin 550 MG TAB (XIFAXAN) PO (08:24)
[2018-05-02] MEDS: HumaLOG INSULIN (NovoLOG) PER UNIT SC ×2 (08:24→12:06)
[2018-05-02] MEDS: POTASSIUM CHLORIDE 10 MEQ SR TABLET PO (08:24)
[2018-05-02] MEDS: VITAMIN D 1,000 INTERNATIONAL UNITS TABLET PO (08:25)
[2018-05-02] MEDS: SPIRONOLACTONE 25 MG TAB PO (08:25)
[2018-05-02] MEDS: ATORVASTATIN 20 MG TAB PO (08:25)
[2018-05-02] MEDS: PANTOPRAZOLE 40MG TAB (PROTONIX) PO (08:25)
[2018-05-02] MEDS: NITROFURANTOIN (MACROBID) 100 MG CAP PO (08:25)
[2018-05-02] MEDS: CLOPIDOGREL 75 MG TAB PO (08:25)
[2018-05-02] MEDS: APIXABAN 5 MG TAB (ELIQUIS) PO (08:25)
[2018-05-02] MEDS: FERROUS SULFATE 325MG TAB PO (08:25)
[2018-05-02] MEDS: amLODIPine 5 MG TAB PO (08:25)
[2018-05-02] MEDS: LACTULOSE 20 GM/30 ML SYRUP UD PO ×2 (08:26→08:41)
[2018-05-02] MEDS: LEVEMIR (INSULIN DETEMIR) 1 UNITS/0.01ML SC (08:26)
[2018-05-02] MEDS: FUROSEMIDE 40 MG TAB PO (08:26)
[2018-05-02 11:32] LABS: BEDSIDE GLUCOSE 468 MG/DL (83-110)
== END 2018-05-02 14:26 | disposition home health service (06) | DRG 442 ==
LOC: M ED 11:02 → M ED INP 15:56 → M PCU 21:23
DX: K72.90 Hepatic failure, unspecified without coma (principal); I50.32 Chronic diastolic (congestive) heart failure; N39.0 Urinary tract infection, site not specified; I11.0 Hypertensive heart disease with heart failure; E11.9 Type 2 diabetes mellitus without complications; K74.60 Unspecified cirrhosis of liver; K75.4 Autoimmune hepatitis; D64.9 Anemia, unspecified; D69.6 Thrombocytopenia, unspecified; Z79.899 Other long term (current) drug therapy; Z79.4 Long term (current) use of insulin; Z79.01 Long term (current) use of anticoagulants; K21.9 Gastro-esophageal reflux disease without esophagitis; Z95.2 Presence of prosthetic heart valve

== ENCOUNTER → 2018-05-17 | Outpatient (REF) | payer MEDICARE ==
[2018-05-17 13:10] LABS: ALBUMIN 3.1 GM/DL (3.2-5.2); ANION GAP 10 MEQ/L (8-16); BLOOD UREA NITROGEN 24 MG/DL (7-18); CALCIUM LEVEL 8.4 MG/DL (8.8-10.2); CARBON DIOXIDE LEVEL 27 MEQ/L (21-32); CHLORIDE LEVEL 103 MEQ/L (98-107); CREATININE FOR GFR 1.51 MG/DL (0.55-1.30); GLOMERULAR FILTRATION RATE 35.7 (>39); GLUCOSE, FASTING 186 MG/DL (70-100); PHOSPHORUS LEVEL 3.5 MG/DL (2.5-4.9); POTASSIUM SERUM 3.9 MEQ/L (3.5-5.1); SODIUM LEVEL 140 MEQ/L (136-145)
== END ==
LOC: M LABDRWAD 12:24
DX: K74.60 Unspecified cirrhosis of liver (principal)
CPT/HCPCS: 80069

== ENCOUNTER → 2018-05-18 | Outpatient (REF) | payer MEDICARE ==
[2018-05-18 12:36] LABS: BASO % 0.7 % (0.0-1.0); EOS # 0.1 10^3/uL (0.0-0.50); EOS % 2.2 % (0.0-3.0); HEMATOCRIT 31.6 % (36.0-47.0); HEMOGLOBIN 10.4 g/dl (12.0-15.5); IMMATURE GRANULOCYTE % 0.2 % (0-3.0); LYMPH # 1.2 10^3/uL (1.5-4.5); MEAN CORPUSCULAR HEMOGLOBIN 32.2 pg (27.0-33.0); MEAN CORPUSCULAR HGB CONC 32.9 g/dl (32.0-36.5); MEAN CORPUSCULAR VOLUME 97.8 fl (80.0-96.0); MONO # 0.3 10^3/uL (0.0-0.8); MONO % 6.1 % (0.0-5.0); NEUTROPHILS % 64.8 % (36.0-66.0); PLATELET COUNT, AUTOMATED 107 10^3/uL (150-450); RED BLOOD COUNT 3.23 10^6/uL (4.00-5.40); RED CELL DISTRIBUTION WIDTH 14.5 % (11.5-14.5); WHITE BLOOD COUNT 4.6 10^3/uL (4.0-10.0)
== END ==
LOC: M LABDRWAD 12:08
DX: K74.60 Unspecified cirrhosis of liver (principal)
CPT/HCPCS: 85025

== ENCOUNTER → 2018-05-27 | Outpatient (REF) | payer MEDICARE | LOC: M LAB REF 09:40 | DX: N39.0 Urinary tract infection, site not specified (principal) | CPT/HCPCS: 87186 ==

== ENCOUNTER → 2018-06-18 | Outpatient (CLI) | payer MEDICARE ==
[2018-06-18 12:34] LABS: BASO # 0.1 10^3/uL (0.0-0.2); EOS # 0.1 10^3/uL (0.0-0.50); EOS % 2.4 % (0.0-3.0); HEMATOCRIT 33.4 % (36.0-47.0); HEMOGLOBIN 11.2 g/dl (12.0-15.5); IMMATURE GRANULOCYTE % 0.3 % (0-3.0); LYMPH # 1.5 10^3/uL (1.5-4.5); LYMPH % 25.6 % (24.0-44.0); MEAN CORPUSCULAR HEMOGLOBIN 32.7 pg (27.0-33.0); MEAN CORPUSCULAR HGB CONC 33.5 g/dl (32.0-36.5); MEAN CORPUSCULAR VOLUME 97.7 fl (80.0-96.0); MONO # 0.4 10^3/uL (0.0-0.8); MONO % 7.3 % (0.0-5.0); NEUTROPHILS # 3.7 10^3/uL (1.8-7.7); NEUTROPHILS % 63.4 % (36.0-66.0); PLATELET COUNT, AUTOMATED 123 10^3/uL (150-450); RED BLOOD COUNT 3.42 10^6/uL (4.00-5.40); RED CELL DISTRIBUTION WIDTH 15.5 % (11.5-14.5); WHITE BLOOD COUNT 5.8 10^3/uL (4.0-10.0)
[2018-06-18 12:46] LABS: ALBUMIN 3.1 GM/DL (3.2-5.2); ANION GAP 7 MEQ/L (8-16); BLOOD UREA NITROGEN 25 MG/DL (7-18); CALCIUM LEVEL 8.2 MG/DL (8.8-10.2); CARBON DIOXIDE LEVEL 29 MEQ/L (21-32); CHLORIDE LEVEL 104 MEQ/L (98-107); CREATININE FOR GFR 1.27 MG/DL (0.55-1.30); GLOMERULAR FILTRATION RATE 43.6 (>39); GLUCOSE, FASTING 205 MG/DL (70-100); PHOSPHORUS LEVEL 3.3 MG/DL (2.5-4.9); POTASSIUM SERUM 3.8 MEQ/L (3.5-5.1); SODIUM LEVEL 140 MEQ/L (136-145)
== END ==
LOC: M ADAMS 09:32
DX: K74.60 Unspecified cirrhosis of liver (principal)
CPT/HCPCS: 80069

== ENCOUNTER 2018-07-16 09:57 | Inpatient (IN) | payer MEDICARE ==
[2018-07-16] MEDS: NS 500 ML IV (10:15)
[2018-07-16 10:23] LABS: BEDSIDE GLUCOSE 259 MG/DL (83-110)
[2018-07-16 10:44] LABS: BASO % 1.1 % (0.0-1.0); EOS # 0.1 10^3/uL (0.0-0.50); EOS % 1.9 % (0.0-3.0); HEMATOCRIT 27.3 % (36.0-47.0); HEMOGLOBIN 9.2 g/dl (12.0-15.5); IMMATURE GRANULOCYTE % 0.5 % (0-3.0); LYMPH # 1.1 10^3/uL (1.5-4.5); LYMPH % 30.5 % (24.0-44.0); MEAN CORPUSCULAR HEMOGLOBIN 33.2 pg (27.0-33.0); MEAN CORPUSCULAR HGB CONC 33.7 g/dl (32.0-36.5); MEAN CORPUSCULAR VOLUME 98.6 fl (80.0-96.0); MONO # 0.2 10^3/uL (0.0-0.8); MONO % 4.9 % (0.0-5.0); NEUTROPHILS # 2.3 10^3/uL (1.8-7.7); NEUTROPHILS % 61.1 % (36.0-66.0); RED BLOOD COUNT 2.77 10^6/uL (4.00-5.40); RED CELL DISTRIBUTION WIDTH 14.7 % (11.5-14.5); WHITE BLOOD COUNT 3.7 10^3/uL (4.0-10.0)
[2018-07-16 10:45] LABS: PLATELET COUNT, AUTOMATED 88 10^3/uL (150-450)
[2018-07-16 11:06] LABS: AMMONIA 61 uMOL/L (<32)
[2018-07-16 11:07] LABS: KETONE, URINE AUTO RFX NEGATIVE (NEGATIVE); LEUKOCYTE ESTERASE UR AUTO RFX NEGATIVE (NEGATIVE); NITRITE, URINE AUTO RFX NEGATIVE (NEGATIVE); RBC, URINE AUTO RFX 0 /HPF (0-3); SPECIFIC GRAVITY UR AUTO RFX 1.008 (1.002-1.035); SQUAM EPITHELIAL CELL UR AURFX 2 /HPF (0-6); WBC, URINE AUTO RFX 1 /HPF (0-3)
[2018-07-16 11:10] LABS: ALBUMIN 2.7 GM/DL (3.2-5.2); ALBUMIN/GLOBULIN RATIO 0.87 (1.00-1.93); ALKALINE PHOSPHATASE 77 U/L (45-117); ALT/SGPT 23 U/L (12-78); ANION GAP 8 MEQ/L (8-16); AST/SGOT 26 U/L (7-37); BILIRUBIN,DIRECT 0.6 MG/DL (0.0-0.2); BILIRUBIN,TOTAL 2.5 MG/DL (0.2-1.0); BLOOD UREA NITROGEN 25 MG/DL (7-18); CARBON DIOXIDE LEVEL 26 MEQ/L (21-32); CHLORIDE LEVEL 109 MEQ/L (98-107); CPK CREATINE PHOSPHOKINASE 47 U/L (26-192); CREATININE FOR GFR 1.36 MG/DL (0.55-1.30); GLOMERULAR FILTRATION RATE 40.2 (>39); GLUCOSE, FASTING 261 MG/DL (70-100); SODIUM LEVEL 143 MEQ/L (136-145); TOTAL PROTEIN 5.8 GM/DL (6.4-8.2); TROPONIN I < 0.02 NG/ML (< 0.10)
[2018-07-16 11:11] LABS: CK-MB VALUE MASS 1.2 NG/ML (<3.6); MB/CK RELATIVE INDEX 2.55 (< OR =4)
[2018-07-16] MEDS: LACTULOSE 20 GM/30 ML SYRUP UD PO ×3 (11:45→21:22)
[2018-07-16 13:08] LABS: ABG BASE EXCESS -0.6 (-2.0-2.0); ABG O2 SATURATION 98.2 % (95.0-99.0); ABG PARTIAL PRESSURE CO2 28.9 mmHg (35.0-45.0); ABG PARTIAL PRESSURE O2 113.9 mmHg (75.0-100.0); ABG TOTAL CO2 22.9 MEQ/L (23.0-31.0); ABG pH (ARTERIAL) 7.499 UNITS (7.350-7.450)
[2018-07-16] MEDS ORDERED: ACETAMINOPHEN 650 MG SUPP PR (13:30)
[2018-07-16] MEDS ORDERED: GLUCAGON FOR INJ 1 MG VIAL (J1610) SC (14:00)
[2018-07-16] MEDS ORDERED: DEXTROSE 50% 50 ML SYRINGE IV (14:00)
[2018-07-16] MEDS ORDERED: GLUCOSE 4 GM CHEW TABLET PO (14:00)
[2018-07-16] MEDS ORDERED: PILL CRUSHER/CUTTER 1 EACH XX (14:15)
[2018-07-16] MEDS ORDERED: amLODIPine 5 MG TAB As Ordered (14:34)
[2018-07-16] MEDS ORDERED: PROPRANOLOL 10 MG TAB As Ordered (14:34)
[2018-07-16] MEDS: PROPRANOLOL 10 MG TAB PO (14:36)
[2018-07-16] MEDS: amLODIPine 5 MG TAB PO (14:36)
[2018-07-16 16:56] LABS: BEDSIDE GLUCOSE 210 MG/DL (83-110)
[2018-07-16] MEDS: HumaLOG INSULIN (NovoLOG) PER UNIT SC ×2 (16:58→21:23)
[2018-07-16] MEDS: KCL 20MEQ IN 0.45NS 1000ML 1,000 ML IV (16:58)
[2018-07-16 20:25] LABS: BEDSIDE GLUCOSE 339 MG/DL (83-110)
[2018-07-16] MEDS: LEVEMIR (INSULIN DETEMIR) 1 UNITS/0.01ML SC (21:23)
[2018-07-16] MEDS: rifAXIMin 550 MG TAB (XIFAXAN) PO (21:23)
[2018-07-16] MEDS: APIXABAN 5 MG TAB (ELIQUIS) PO (21:24)
[2018-07-17] MEDS: KCL 20MEQ IN 0.45NS 1000ML 1,000 ML IV (05:17)
[2018-07-17 06:04] LABS: BASO % 0.9 % (0.0-1.0); EOS # 0.1 10^3/uL (0.0-0.50); HEMATOCRIT 25.4 % (36.0-47.0); HEMOGLOBIN 8.6 g/dl (12.0-15.5); IMMATURE GRANULOCYTE % 0.3 % (0-3.0); LYMPH # 1.1 10^3/uL (1.5-4.5); LYMPH % 34.3 % (24.0-44.0); MEAN CORPUSCULAR HEMOGLOBIN 33.2 pg (27.0-33.0); MEAN CORPUSCULAR HGB CONC 33.9 g/dl (32.0-36.5); MEAN CORPUSCULAR VOLUME 98.1 fl (80.0-96.0); MONO # 0.2 10^3/uL (0.0-0.8); MONO % 5.6 % (0.0-5.0); NEUTROPHILS # 1.8 10^3/uL (1.8-7.7); NEUTROPHILS % 54.9 % (36.0-66.0); RED BLOOD COUNT 2.59 10^6/uL (4.00-5.40); RED CELL DISTRIBUTION WIDTH 14.9 % (11.5-14.5); WHITE BLOOD COUNT 3.2 10^3/uL (4.0-10.0)
[2018-07-17 06:13] LABS: AMMONIA 63 uMOL/L (<32)
[2018-07-17] MEDS: ACETAMINOPHEN 500 MG TAB PO (06:21)
[2018-07-17 06:23] LABS: ALBUMIN 2.4 GM/DL (3.2-5.2); ALBUMIN/GLOBULIN RATIO 0.92 (1.00-1.93); ALKALINE PHOSPHATASE 62 U/L (45-117); ALT/SGPT 20 U/L (12-78); ANION GAP 10 MEQ/L (8-16); AST/SGOT 20 U/L (7-37); BILIRUBIN,TOTAL 2.4 MG/DL (0.2-1.0); BLOOD UREA NITROGEN 18 MG/DL (7-18); CALCIUM LEVEL 7.9 MG/DL (8.8-10.2); CARBON DIOXIDE LEVEL 22 MEQ/L (21-32); CHLORIDE LEVEL 115 MEQ/L (98-107); CREATININE FOR GFR 0.92 MG/DL (0.55-1.30); GLOMERULAR FILTRATION RATE > 60.0 (>39); GLUCOSE, FASTING 170 MG/DL (70-100); POTASSIUM SERUM 3.8 MEQ/L (3.5-5.1); SODIUM LEVEL 147 MEQ/L (136-145)
[2018-07-17 06:27] LABS: PLATELET COUNT, AUTOMATED 87 10^3/uL (150-450)
[2018-07-17] MEDS: amLODIPine 5 MG TAB PO ×2 (08:06→21:07)
[2018-07-17] MEDS: LACTULOSE 20 GM/30 ML SYRUP UD PO ×3 (08:06→21:07)
[2018-07-17] MEDS: ATORVASTATIN 20 MG TAB PO (08:06)
[2018-07-17] MEDS: CLOPIDOGREL 75 MG TAB PO (08:07)
[2018-07-17] MEDS: APIXABAN 5 MG TAB (ELIQUIS) PO ×2 (08:07→21:07)
[2018-07-17] MEDS: HumaLOG INSULIN (NovoLOG) PER UNIT SC ×4 (08:10→21:08)
[2018-07-17] MEDS: LEVEMIR (INSULIN DETEMIR) 1 UNITS/0.01ML SC ×2 (08:11→21:08)
[2018-07-17] MEDS: PANTOPRAZOLE 40MG TAB (PROTONIX) PO (08:16)
[2018-07-17] MEDS: PROPRANOLOL 10 MG TAB PO ×2 (08:17→21:07)
[2018-07-17 11:35] LABS: BEDSIDE GLUCOSE 281 MG/DL (83-110)
[2018-07-17 16:38] LABS: BEDSIDE GLUCOSE 278 MG/DL (83-110)
[2018-07-17 20:47] LABS: BEDSIDE GLUCOSE 279 MG/DL (83-110)
[2018-07-17] MEDS: SPIRONOLACTONE 25 MG TAB PO (21:12)
[2018-07-18 06:25] LABS: HEMATOCRIT 26.5 % (36.0-47.0); HEMOGLOBIN 9.1 g/dl (12.0-15.5); MEAN CORPUSCULAR HEMOGLOBIN 33.7 pg (27.0-33.0); MEAN CORPUSCULAR HGB CONC 34.3 g/dl (32.0-36.5); MEAN CORPUSCULAR VOLUME 98.1 fl (80.0-96.0); RED CELL DISTRIBUTION WIDTH 14.7 % (11.5-14.5); WHITE BLOOD COUNT 3.5 10^3/uL (4.0-10.0)
[2018-07-18 06:26] LABS: PLATELET COUNT, AUTOMATED 95 10^3/uL (150-450)
[2018-07-18 06:27] LABS: IMMATURE PLATELET FRACTION % 1.6 % (0.0-9.6)
[2018-07-18 06:37] LABS: AMMONIA 37 uMOL/L (<32)
[2018-07-18 06:39] LABS: ALBUMIN 2.5 GM/DL (3.2-5.2); ALBUMIN/GLOBULIN RATIO 0.81 (1.00-1.93); ALKALINE PHOSPHATASE 69 U/L (45-117); ALT/SGPT 25 U/L (12-78); ANION GAP 11 MEQ/L (8-16); AST/SGOT 26 U/L (7-37); BILIRUBIN,TOTAL 2.4 MG/DL (0.2-1.0); BLOOD UREA NITROGEN 16 MG/DL (7-18); CALCIUM LEVEL 8.5 MG/DL (8.8-10.2); CARBON DIOXIDE LEVEL 21 MEQ/L (21-32); CHLORIDE LEVEL 112 MEQ/L (98-107); GLOMERULAR FILTRATION RATE > 60.0 (>39); GLUCOSE, FASTING 209 MG/DL (70-100); POTASSIUM SERUM 4.3 MEQ/L (3.5-5.1); SODIUM LEVEL 144 MEQ/L (136-145); TOTAL PROTEIN 5.6 GM/DL (6.4-8.2)
[2018-07-18] MEDS: HumaLOG INSULIN (NovoLOG) PER UNIT SC ×4 (07:30→20:59)
[2018-07-18] MEDS: CLOPIDOGREL 75 MG TAB PO (08:37)
[2018-07-18] MEDS: APIXABAN 5 MG TAB (ELIQUIS) PO ×2 (08:38→20:58)
[2018-07-18] MEDS: ATORVASTATIN 20 MG TAB PO (08:39)
[2018-07-18] MEDS: PANTOPRAZOLE 40MG TAB (PROTONIX) PO (08:39)
[2018-07-18] MEDS: SPIRONOLACTONE 25 MG TAB PO ×2 (08:39→16:51)
[2018-07-18] MEDS: FUROSEMIDE 20 MG TAB PO (08:39)
[2018-07-18] MEDS: amLODIPine 5 MG TAB PO ×2 (08:40→20:57)
[2018-07-18] MEDS: PROPRANOLOL 10 MG TAB PO ×2 (08:40→20:57)
[2018-07-18] MEDS: LACTULOSE 20 GM/30 ML SYRUP UD PO ×3 (08:41→20:56)
[2018-07-18] MEDS: LEVEMIR (INSULIN DETEMIR) 1 UNITS/0.01ML SC ×2 (08:41→20:58)
[2018-07-18] MEDS ORDERED: INFLUENZA VIRUS VACCINE HIGH DOSE 0.5 ML SYRINGE (90662) IM (09:00)
[2018-07-18] MEDS ORDERED: PROPOFOL 200 MG/20 ML VIAL As Ordered (11:22)
[2018-07-18] MEDS ORDERED: LIDOCAINE 2% MDV 20 ML VIAL As Ordered (11:22)
[2018-07-18] MEDS ORDERED: fentaNYL 100 MCG/2 ML INJECTION (J3010) As Ordered (11:22)
[2018-07-18] MEDS ORDERED: EPINEPHrine 1MG/10ML SYRINGE 1.5IN As Ordered (11:32)
[2018-07-18 12:38] LABS: BEDSIDE GLUCOSE 165 MG/DL (83-110)
[2018-07-18 16:42] LABS: BEDSIDE GLUCOSE 322 MG/DL (83-110)
[2018-07-18 20:04] LABS: BEDSIDE GLUCOSE 319 MG/DL (83-110)
[2018-07-19 06:58] LABS: BASO # 0.1 10^3/uL (0.0-0.2); BASO % 1.2 % (0.0-1.0); EOS # 0.2 10^3/uL (0.0-0.50); HEMATOCRIT 27.4 % (36.0-47.0); HEMOGLOBIN 9.5 g/dl (12.0-15.5); IMMATURE GRANULOCYTE % 0.5 % (0-3.0); LYMPH # 1.1 10^3/uL (1.5-4.5); LYMPH % 26.9 % (24.0-44.0); MEAN CORPUSCULAR HEMOGLOBIN 33.8 pg (27.0-33.0); MEAN CORPUSCULAR HGB CONC 34.7 g/dl (32.0-36.5); MEAN CORPUSCULAR VOLUME 97.5 fl (80.0-96.0); MONO # 0.3 10^3/uL (0.0-0.8); MONO % 6.4 % (0.0-5.0); NEUTROPHILS # 2.5 10^3/uL (1.8-7.7); RED BLOOD COUNT 2.81 10^6/uL (4.00-5.40); RED CELL DISTRIBUTION WIDTH 14.6 % (11.5-14.5); WHITE BLOOD COUNT 4.1 10^3/uL (4.0-10.0)
[2018-07-19 07:02] LABS: PLATELET COUNT, AUTOMATED 97 10^3/uL (150-450)
[2018-07-19 07:03] LABS: IMMATURE PLATELET FRACTION % 2.3 % (0.0-9.6)
[2018-07-19 07:09] LABS: ALBUMIN 2.6 GM/DL (3.2-5.2); ALBUMIN/GLOBULIN RATIO 0.84 (1.00-1.93); ALKALINE PHOSPHATASE 72 U/L (45-117); ALT/SGPT 24 U/L (12-78); ANION GAP 10 MEQ/L (8-16); AST/SGOT 27 U/L (7-37); BILIRUBIN,TOTAL 2.8 MG/DL (0.2-1.0); BLOOD UREA NITROGEN 15 MG/DL (7-18); CALCIUM LEVEL 8.7 MG/DL (8.8-10.2); CARBON DIOXIDE LEVEL 23 MEQ/L (21-32); CHLORIDE LEVEL 109 MEQ/L (98-107); CREATININE FOR GFR 1.08 MG/DL (0.55-1.30); GLOMERULAR FILTRATION RATE 52.5 (>39); GLUCOSE, FASTING 178 MG/DL (70-100); POTASSIUM SERUM 4.7 MEQ/L (3.5-5.1); SODIUM LEVEL 142 MEQ/L (136-145); TOTAL PROTEIN 5.7 GM/DL (6.4-8.2)
[2018-07-19 07:14] LABS: AMMONIA 82 uMOL/L (<32)
[2018-07-19] MEDS: APIXABAN 5 MG TAB (ELIQUIS) PO (08:02)
[2018-07-19] MEDS: HumaLOG INSULIN (NovoLOG) PER UNIT SC (08:02)
[2018-07-19] MEDS: LEVEMIR (INSULIN DETEMIR) 1 UNITS/0.01ML SC (08:02)
[2018-07-19] MEDS: LACTULOSE 20 GM/30 ML SYRUP UD PO (08:02)
[2018-07-19] MEDS: PROPRANOLOL 10 MG TAB PO (08:03)
[2018-07-19] MEDS: SPIRONOLACTONE 25 MG TAB PO (08:03)
[2018-07-19] MEDS: FUROSEMIDE 20 MG TAB PO (08:03)
[2018-07-19] MEDS: PANTOPRAZOLE 40MG TAB (PROTONIX) PO (08:03)
[2018-07-19] MEDS: amLODIPine 5 MG TAB PO (08:04)
[2018-07-19] MEDS: CLOPIDOGREL 75 MG TAB PO (08:04)
[2018-07-19] MEDS: ATORVASTATIN 20 MG TAB PO (08:04)
== END 2018-07-19 11:47 | disposition home health service (06) | DRG 441 ==
LOC: M ED 09:57 → M ED INP 13:30 → M MSPAV 15:25
PROVIDERS: Family Medicine
PROC: 0W3P8ZZ Control Bleeding in Gastrointestinal Tract, Via Natural or Artificial Opening Endoscopic (ICD-10-PCS; principal; 2018-07-18 11:20)
DX: K72.00 Acute and subacute hepatic failure without coma (principal); I50.31 Acute diastolic (congestive) heart failure; K31.811 Angiodysplasia of stomach and duodenum with bleeding; D61.818 Other pancytopenia; E44.1 Mild protein-calorie malnutrition; D62 Acute posthemorrhagic anemia; I11.0 Hypertensive heart disease with heart failure; K75.4 Autoimmune hepatitis; Z79.899 Other long term (current) drug therapy; K31.89 Other diseases of stomach and duodenum; E11.9 Type 2 diabetes mellitus without complications; I48.0 Paroxysmal atrial fibrillation; I25.10 Atherosclerotic heart disease of native coronary artery without angina pectoris

== ENCOUNTER → 2018-07-30 | Outpatient (REF) | payer MEDICARE ==
[2018-07-30 15:48] LABS: BASO # 0.1 10^3/uL (0.0-0.2); BASO % 1.2 % (0.0-1.0); EOS # 0.1 10^3/uL (0.0-0.50); EOS % 2.8 % (0.0-3.0); HEMATOCRIT 34.5 % (36.0-47.0); HEMOGLOBIN 11.8 g/dl (12.0-15.5); IMMATURE GRANULOCYTE % 0.2 % (0-3.0); LYMPH # 1.2 10^3/uL (1.5-4.5); LYMPH % 22.8 % (24.0-44.0); MEAN CORPUSCULAR HEMOGLOBIN 33.2 pg (27.0-33.0); MEAN CORPUSCULAR HGB CONC 34.2 g/dl (32.0-36.5); MEAN CORPUSCULAR VOLUME 97.2 fl (80.0-96.0); MONO # 0.4 10^3/uL (0.0-0.8); MONO % 7.1 % (0.0-5.0); NEUTROPHILS # 3.4 10^3/uL (1.8-7.7); NEUTROPHILS % 65.9 % (36.0-66.0); PLATELET COUNT, AUTOMATED 132 10^3/uL (150-450); RED BLOOD COUNT 3.55 10^6/uL (4.00-5.40); RED CELL DISTRIBUTION WIDTH 14.6 % (11.5-14.5); WHITE BLOOD COUNT 5.1 10^3/uL (4.0-10.0)
[2018-07-30 16:25] LABS: ALBUMIN 3.5 GM/DL (3.2-5.2); ALKALINE PHOSPHATASE 92 U/L (45-117); ALT/SGPT 25 U/L (12-78); ANION GAP 14 MEQ/L (8-16); AST/SGOT 27 U/L (7-37); BILIRUBIN,TOTAL 3.9 MG/DL (0.2-1.0); BLOOD UREA NITROGEN 26 MG/DL (7-18); CALCIUM LEVEL 8.9 MG/DL (8.8-10.2); CARBON DIOXIDE LEVEL 24 MEQ/L (21-32); CHLORIDE LEVEL 98 MEQ/L (98-107); CREATININE FOR GFR 1.67 MG/DL (0.55-1.30); GLOMERULAR FILTRATION RATE 31.7 (>39); GLUCOSE, FASTING 417 MG/DL (70-100); POTASSIUM SERUM 4.3 MEQ/L (3.5-5.1); SODIUM LEVEL 136 MEQ/L (136-145)
== END ==
LOC: M SFHCADAM 11:33
DX: K74.60 Unspecified cirrhosis of liver (principal); D63.8 Anemia in other chronic diseases classified elsewhere; E11.21 Type 2 diabetes mellitus with diabetic nephropathy; I48.2 Chronic atrial fibrillation; I50.32 Chronic diastolic (congestive) heart failure; E66.01 Morbid (severe) obesity due to excess calories; Z68.34 Body mass index [BMI] 34.0-34.9, adult
CPT/HCPCS: 80053

== ENCOUNTER → 2018-08-29 | Outpatient (REF) | payer MEDICARE ==
[2018-08-29 20:22] LABS: BASO % 0.8 % (0.0-1.0); EOS # 0.1 10^3/uL (0.0-0.50); EOS % 2.5 % (0.0-3.0); HEMATOCRIT 34.9 % (36.0-47.0); HEMOGLOBIN 11.6 g/dl (12.0-15.5); IMMATURE GRANULOCYTE % 0.2 % (0-3.0); LYMPH # 1.6 10^3/uL (1.5-4.5); LYMPH % 31.4 % (24.0-44.0); MEAN CORPUSCULAR HEMOGLOBIN 31.9 pg (27.0-33.0); MEAN CORPUSCULAR HGB CONC 33.2 g/dl (32.0-36.5); MEAN CORPUSCULAR VOLUME 95.9 fl (80.0-96.0); MONO # 0.4 10^3/uL (0.0-0.8); MONO % 8.1 % (0.0-5.0); PLATELET COUNT, AUTOMATED 121 10^3/uL (150-450); RED BLOOD COUNT 3.64 10^6/uL (4.00-5.40); RED CELL DISTRIBUTION WIDTH 13.5 % (11.5-14.5); WHITE BLOOD COUNT 5.2 10^3/uL (4.0-10.0)
[2018-08-29 20:33] LABS: ALBUMIN 3.3 GM/DL (3.2-5.2); ANION GAP 9 MEQ/L (8-16); BLOOD UREA NITROGEN 35 MG/DL (7-18); CALCIUM LEVEL 8.4 MG/DL (8.8-10.2); CARBON DIOXIDE LEVEL 27 MEQ/L (21-32); CHLORIDE LEVEL 104 MEQ/L (98-107); GLOMERULAR FILTRATION RATE 27.3 (>39); GLUCOSE, FASTING 157 MG/DL (70-100); PHOSPHORUS LEVEL 4.5 MG/DL (2.5-4.9); POTASSIUM SERUM 4.4 MEQ/L (3.5-5.1); SODIUM LEVEL 140 MEQ/L (136-145)
== END ==
LOC: M LABDRWAD 10:11
DX: K74.60 Unspecified cirrhosis of liver (principal)

== ENCOUNTER 2018-08-31 17:09 | Inpatient (IN) | payer MEDICARE ==
[2018-08-31 17:42] LABS: BASO % 0.4 % (0.0-1.0); EOS % 0.6 % (0.0-3.0); HEMATOCRIT 34.2 % (36.0-47.0); HEMOGLOBIN 11.7 g/dl (12.0-15.5); IMMATURE GRANULOCYTE % 0.4 % (0-3.0); LYMPH # 1.1 10^3/uL (1.5-4.5); MEAN CORPUSCULAR HEMOGLOBIN 32.2 pg (27.0-33.0); MEAN CORPUSCULAR HGB CONC 34.2 g/dl (32.0-36.5); MEAN CORPUSCULAR VOLUME 94.2 fl (80.0-96.0); MONO # 0.3 10^3/uL (0.0-0.8); MONO % 6.7 % (0.0-5.0); NEUTROPHILS # 3.5 10^3/uL (1.8-7.7); NEUTROPHILS % 69.9 % (36.0-66.0); PLATELET COUNT, AUTOMATED 110 10^3/uL (150-450); RED BLOOD COUNT 3.63 10^6/uL (4.00-5.40); RED CELL DISTRIBUTION WIDTH 13.5 % (11.5-14.5)
[2018-08-31] MEDS: ONDANSETRON 4MG/2ML VIAL (J2405) IV (17:48)
[2018-08-31 17:53] LABS: AMMONIA 45 uMOL/L (<32)
[2018-08-31 17:59] LABS: LACTIC ACID SEPSIS PROTOCOL 1.9 MMOL/L (0.4-2.0)
[2018-08-31 18:04] LABS: ALBUMIN/GLOBULIN RATIO 0.88 (1.00-1.93); ALKALINE PHOSPHATASE 83 U/L (45-117); ALT/SGPT 29 U/L (12-78); ANION GAP 13 MEQ/L (8-16); AST/SGOT 29 U/L (7-37); BILIRUBIN,DIRECT 0.6 MG/DL (0.0-0.2); BILIRUBIN,TOTAL 4.2 MG/DL (0.2-1.0); BLOOD UREA NITROGEN 35 MG/DL (7-18); CALCIUM LEVEL 8.1 MG/DL (8.8-10.2); CARBON DIOXIDE LEVEL 23 MEQ/L (21-32); CHLORIDE LEVEL 107 MEQ/L (98-107); CPK CREATINE PHOSPHOKINASE 75 U/L (26-192); ETHYL ALCOHOL (ETHANOL) < 0.003 % (0.000-0.010); GLOMERULAR FILTRATION RATE 35.8 (>39); GLUCOSE, FASTING 215 MG/DL (70-100); MB/CK RELATIVE INDEX 1.73 (< OR =4); POTASSIUM SERUM 4.2 MEQ/L (3.5-5.1); SODIUM LEVEL 143 MEQ/L (136-145); TOTAL PROTEIN 6.4 GM/DL (6.4-8.2); TROPONIN I < 0.02 NG/ML (< 0.10)
[2018-08-31 18:06] LABS: ACETAMINOPHEN LEVEL < 2.0 UG/ML (10.0-30.0); SALICYLATE LEVEL < 1.7 MG/DL (5.0-30.0)
[2018-08-31 18:41] LABS: ABG BASE EXCESS -1.5 (-2.0-2.0); ABG HCO3 20.3 MEQ/L (22.0-26.0); ABG O2 SATURATION 98.2 % (95.0-99.0); ABG PARTIAL PRESSURE CO2 25.7 mmHg (35.0-45.0); ABG PARTIAL PRESSURE O2 111.1 mmHg (75.0-100.0); ABG STANDARD HCO3 23.2 MEQ/L (22.0-26.0); ABG TOTAL CO2 21.1 MEQ/L (23.0-31.0); ABG pH (ARTERIAL) 7.515 UNITS (7.350-7.450)
[2018-08-31 18:44] LABS: KETONE, URINE AUTO RFX NEGATIVE (NEGATIVE); NITRITE, URINE AUTO RFX NEGATIVE (NEGATIVE); RBC, URINE AUTO RFX 2 /HPF (0-3); SPECIFIC GRAVITY UR AUTO RFX 1.012 (1.002-1.035); SQUAM EPITHELIAL CELL UR AURFX 0 /HPF (0-6)
[2018-08-31 18:45] LABS: LEUKOCYTE ESTERASE UR AUTO RFX 3+ (NEGATIVE); WBC, URINE AUTO RFX TNTC /HPF (0-3)
[2018-08-31 18:55] LABS: AMPHETAMINES LEVEL URINE NEGATIVE (NEGATIVE); BARBITURATES URINE NEGATIVE (NEGATIVE); BENZODIAZEPINES URINE NEGATIVE (NEGATIVE); CANNABINOIDS URINE NEGATIVE (NEGATIVE); COCAINE METABOLITE URINE NEGATIVE (NEGATIVE); METHADONE URINE NEGATIVE (NEGATIVE); OPIATES URINE NEGATIVE (NEGATIVE); PHENCYCLIDINE URINE NEGATIVE (NEGATIVE)
[2018-08-31] MEDS: cefTRIAXone SOD 1 GM in D5W MINI-BAG PLUS 50 ML IV (19:39)
[2018-08-31] MEDS ORDERED: GLUCAGON FOR INJ 1 MG VIAL (J1610) SC (19:45)
[2018-08-31] MEDS ORDERED: ONDANSETRON 4MG/2ML VIAL (J2405) IV (19:45)
[2018-08-31] MEDS ORDERED: GLUCOSE 4 GM CHEW TABLET PO (19:45)
[2018-08-31] MEDS ORDERED: DEXTROSE 50% 50 ML SYRINGE IV (19:45)
[2018-08-31] MEDS ORDERED: PILL CRUSHER/CUTTER 1 EACH XX (20:45)
[2018-08-31] MEDS ORDERED: LACTULOSE 20 GM/30 ML SYRUP UD PR (21:00)
[2018-08-31] MEDS: VANCOMYCIN HCL 1,000 MG, VIAL MATE ADAPTER 1 EACH in D5W 250 ML IV (22:55)
[2018-08-31] MEDS: VANCOMYCIN HCL 750 MG, VIAL MATE ADAPTER 1 EACH in D5W 250 ML IV (23:00)
[2018-08-31] MEDS: NS 1,000 ML IV (23:03)
[2018-08-31] MEDS: PANTOPRAZOLE 40MG INJ (PROTONIX) (C9113) IV (23:03)
[2018-09-01 00:42] LABS: BEDSIDE GLUCOSE 238 MG/DL (83-110)
[2018-09-01] MEDS: THIAMINE HCL 200 MG/2 ML VIAL (J3411) IV ×2 (01:00→09:23)
[2018-09-01] MEDS: HumaLOG INSULIN (NovoLOG) PER UNIT SC ×5 (01:08→21:00)
[2018-09-01] MEDS: LACTULOSE 20 GM/30 ML SYRUP UD PO ×8 (02:18→20:09)
[2018-09-01 05:11] LABS: BASO # 0.1 10^3/uL (0.0-0.2); BASO % 1.2 % (0.0-1.0); EOS # 0.1 10^3/uL (0.0-0.50); EOS % 2.4 % (0.0-3.0); HEMATOCRIT 30.9 % (36.0-47.0); HEMOGLOBIN 10.6 g/dl (12.0-15.5); IMMATURE GRANULOCYTE % 0.2 % (0-3.0); LYMPH # 1.3 10^3/uL (1.5-4.5); LYMPH % 26.2 % (24.0-44.0); MEAN CORPUSCULAR HEMOGLOBIN 32.6 pg (27.0-33.0); MEAN CORPUSCULAR HGB CONC 34.3 g/dl (32.0-36.5); MEAN CORPUSCULAR VOLUME 95.1 fl (80.0-96.0); MONO # 0.5 10^3/uL (0.0-0.8); MONO % 9.3 % (0.0-5.0); NEUTROPHILS # 3.1 10^3/uL (1.8-7.7); NEUTROPHILS % 60.7 % (36.0-66.0); PLATELET COUNT, AUTOMATED 106 10^3/uL (150-450); RED BLOOD COUNT 3.25 10^6/uL (4.00-5.40); RED CELL DISTRIBUTION WIDTH 13.9 % (11.5-14.5); WHITE BLOOD COUNT 5.1 10^3/uL (4.0-10.0)
[2018-09-01 05:37] LABS: ALBUMIN 2.7 GM/DL (3.2-5.2); ALBUMIN/GLOBULIN RATIO 0.87 (1.00-1.93); ALKALINE PHOSPHATASE 77 U/L (45-117); ALT/SGPT 28 U/L (12-78); ANION GAP 13 MEQ/L (8-16); AST/SGOT 33 U/L (7-37); BILIRUBIN,TOTAL 3.5 MG/DL (0.2-1.0); BLOOD UREA NITROGEN 35 MG/DL (7-18); CARBON DIOXIDE LEVEL 21 MEQ/L (21-32); CHLORIDE LEVEL 112 MEQ/L (98-107); CREATININE FOR GFR 1.57 MG/DL (0.55-1.30); GLUCOSE, FASTING 222 MG/DL (70-100); POTASSIUM SERUM 3.4 MEQ/L (3.5-5.1); SODIUM LEVEL 146 MEQ/L (136-145); TOTAL PROTEIN 5.8 GM/DL (6.4-8.2)
[2018-09-01 05:37] LABS: AMMONIA 159 uMOL/L (<32)
[2018-09-01] MEDS: NS 1,000 ML IV (06:03)
[2018-09-01] MEDS ORDERED: LACTULOSE 20 GM/30 ML SYRUP UD PO (09:00)
[2018-09-01] MEDS ORDERED: SLF 3 ML SYR IV (09:00)
[2018-09-01] MEDS: VITAMIN D 1,000 INTERNATIONAL UNITS TABLET PO (09:22)
[2018-09-01] MEDS: rifAXIMin 550 MG TAB (XIFAXAN) PO ×2 (09:22→20:09)
[2018-09-01] MEDS: ATORVASTATIN 20 MG TAB PO (09:22)
[2018-09-01] MEDS: FERROUS SULFATE 325MG TAB PO (09:22)
[2018-09-01] MEDS: PROPRANOLOL 10 MG TAB PO ×2 (09:22→20:10)
[2018-09-01 11:28] LABS: BEDSIDE GLUCOSE 377 MG/DL (83-110)
[2018-09-01] MEDS: APIXABAN 5 MG TAB (ELIQUIS) PO ×2 (11:54→20:10)
[2018-09-01] MEDS: SLF 3 ML SYR IV ×2 (13:10→21:19)
[2018-09-01] MEDS: VANCOMYCIN HCL 750 MG, VIAL MATE ADAPTER 1 EACH in D5W 250 ML IV (13:59)
[2018-09-01 16:39] LABS: BEDSIDE GLUCOSE 391 MG/DL (83-110)
[2018-09-01] MEDS: PANTOPRAZOLE 40MG INJ (PROTONIX) (C9113) IV (20:10)
[2018-09-01] MEDS: cefTRIAXone SOD 1 GM in D5W MINI-BAG PLUS 50 ML IV (20:11)
[2018-09-01 21:16] LABS: BEDSIDE GLUCOSE 336 MG/DL (83-110)
[2018-09-01] MEDS: VANCOMYCIN HCL 1,000 MG, VIAL MATE ADAPTER 1 EACH in D5W 250 ML IV (21:53)
[2018-09-02 04:56] LABS: BASO % 0.9 % (0.0-1.0); EOS # 0.2 10^3/uL (0.0-0.50); EOS % 5.3 % (0.0-3.0); HEMATOCRIT 27.5 % (36.0-47.0); HEMOGLOBIN 9.3 g/dl (12.0-15.5); IMMATURE GRANULOCYTE % 0.2 % (0-3.0); LYMPH # 1.6 10^3/uL (1.5-4.5); LYMPH % 35.9 % (24.0-44.0); MEAN CORPUSCULAR HEMOGLOBIN 32.5 pg (27.0-33.0); MEAN CORPUSCULAR HGB CONC 33.8 g/dl (32.0-36.5); MEAN CORPUSCULAR VOLUME 96.2 fl (80.0-96.0); MONO # 0.3 10^3/uL (0.0-0.8); MONO % 7.6 % (0.0-5.0); NEUTROPHILS # 2.2 10^3/uL (1.8-7.7); NEUTROPHILS % 50.1 % (36.0-66.0); RED BLOOD COUNT 2.86 10^6/uL (4.00-5.40); RED CELL DISTRIBUTION WIDTH 13.8 % (11.5-14.5); WHITE BLOOD COUNT 4.4 10^3/uL (4.0-10.0)
[2018-09-02] MEDS: SLF 3 ML SYR IV (05:09)
[2018-09-02 05:20] LABS: AMMONIA 57 uMOL/L (<32)
[2018-09-02 05:24] LABS: ALBUMIN 2.3 GM/DL (3.2-5.2); ALBUMIN/GLOBULIN RATIO 0.85 (1.00-1.93); ALKALINE PHOSPHATASE 70 U/L (45-117); ALT/SGPT 29 U/L (12-78); ANION GAP 9 MEQ/L (8-16); AST/SGOT 37 U/L (7-37); BILIRUBIN,TOTAL 2.8 MG/DL (0.2-1.0); BLOOD UREA NITROGEN 24 MG/DL (7-18); CALCIUM LEVEL 7.2 MG/DL (8.8-10.2); CARBON DIOXIDE LEVEL 23 MEQ/L (21-32); CHLORIDE LEVEL 111 MEQ/L (98-107); CREATININE FOR GFR 1.15 MG/DL (0.55-1.30); GLOMERULAR FILTRATION RATE 48.7 (>39); GLUCOSE, FASTING 243 MG/DL (70-100); POTASSIUM SERUM 3.7 MEQ/L (3.5-5.1); SODIUM LEVEL 143 MEQ/L (136-145)
[2018-09-02 05:40] LABS: PLATELET COUNT, AUTOMATED 89 10^3/uL (150-450); PLATELET F 1.8
[2018-09-02] MEDS: HumaLOG INSULIN (NovoLOG) PER UNIT SC ×4 (08:12→20:56)
[2018-09-02] MEDS: APIXABAN 5 MG TAB (ELIQUIS) PO ×2 (08:12→20:56)
[2018-09-02] MEDS: rifAXIMin 550 MG TAB (XIFAXAN) PO ×2 (08:12→20:56)
[2018-09-02] MEDS: LACTULOSE 20 GM/30 ML SYRUP UD PO ×3 (08:12→20:55)
[2018-09-02] MEDS: THIAMINE HCL 200 MG/2 ML VIAL (J3411) IV (08:12)
[2018-09-02] MEDS: ATORVASTATIN 20 MG TAB PO (08:12)
[2018-09-02] MEDS: PROPRANOLOL 10 MG TAB PO ×2 (08:13→20:57)
[2018-09-02] MEDS: VITAMIN D 1,000 INTERNATIONAL UNITS TABLET PO (08:13)
[2018-09-02] MEDS: FERROUS SULFATE 325MG TAB PO (08:14)
[2018-09-02] MEDS: LEVEMIR (INSULIN DETEMIR) 1 UNITS/0.01ML SC ×2 (11:03→20:56)
[2018-09-02] MEDS: PANTOPRAZOLE 40MG TAB (PROTONIX) PO (11:03)
[2018-09-02] MEDS: CEPHALEXIN 500 MG CAP PO ×2 (11:03→20:56)
[2018-09-02 12:00] LABS: BEDSIDE GLUCOSE 311 MG/DL (83-110)
[2018-09-02 16:32] LABS: BEDSIDE GLUCOSE 218 MG/DL (83-110)
[2018-09-02 20:52] LABS: BEDSIDE GLUCOSE 305 MG/DL (83-110)
[2018-09-03 04:51] LABS: EOS # 0.2 10^3/uL (0.0-0.50); EOS % 4.1 % (0.0-3.0); HEMATOCRIT 26.7 % (36.0-47.0); HEMOGLOBIN 9.1 g/dl (12.0-15.5); IMMATURE GRANULOCYTE % 0.2 % (0-3.0); LYMPH # 1.4 10^3/uL (1.5-4.5); LYMPH % 32.9 % (24.0-44.0); MEAN CORPUSCULAR HEMOGLOBIN 32.5 pg (27.0-33.0); MEAN CORPUSCULAR HGB CONC 34.1 g/dl (32.0-36.5); MEAN CORPUSCULAR VOLUME 95.4 fl (80.0-96.0); MONO # 0.3 10^3/uL (0.0-0.8); MONO % 6.5 % (0.0-5.0); NEUTROPHILS # 2.3 10^3/uL (1.8-7.7); NEUTROPHILS % 55.3 % (36.0-66.0); RED CELL DISTRIBUTION WIDTH 13.8 % (11.5-14.5); WHITE BLOOD COUNT 4.2 10^3/uL (4.0-10.0)
[2018-09-03 04:54] LABS: IMMATURE PLATELET FRACTION % 2.2 % (0.0-9.6); PLATELET COUNT, AUTOMATED 89 10^3/uL (150-450)
[2018-09-03 05:36] LABS: ALBUMIN 2.3 GM/DL (3.2-5.2); ALBUMIN/GLOBULIN RATIO 0.79 (1.00-1.93); ALKALINE PHOSPHATASE 69 U/L (45-117); ALT/SGPT 33 U/L (12-78); ANION GAP 6 MEQ/L (8-16); AST/SGOT 39 U/L (7-37); BILIRUBIN,TOTAL 2.9 MG/DL (0.2-1.0); BLOOD UREA NITROGEN 20 MG/DL (7-18); CARBON DIOXIDE LEVEL 24 MEQ/L (21-32); CHLORIDE LEVEL 111 MEQ/L (98-107); CREATININE FOR GFR 1.02 MG/DL (0.55-1.30); GLOMERULAR FILTRATION RATE 55.9 (>39); GLUCOSE, FASTING 201 MG/DL (70-100); POTASSIUM SERUM 4.4 MEQ/L (3.5-5.1); SODIUM LEVEL 141 MEQ/L (136-145); TOTAL PROTEIN 5.2 GM/DL (6.4-8.2)
[2018-09-03] MEDS: HumaLOG INSULIN (NovoLOG) PER UNIT SC (07:26)
[2018-09-03] MEDS: THIAMINE HCL 200 MG/2 ML VIAL (J3411) IV ×2 (09:00→09:03)
[2018-09-03] MEDS: LACTULOSE 20 GM/30 ML SYRUP UD PO (09:02)
[2018-09-03] MEDS: ATORVASTATIN 20 MG TAB PO (09:04)
[2018-09-03] MEDS: rifAXIMin 550 MG TAB (XIFAXAN) PO (09:04)
[2018-09-03] MEDS: LEVEMIR (INSULIN DETEMIR) 1 UNITS/0.01ML SC (09:04)
[2018-09-03] MEDS: APIXABAN 5 MG TAB (ELIQUIS) PO (09:04)
[2018-09-03] MEDS: VITAMIN D 1,000 INTERNATIONAL UNITS TABLET PO (09:04)
[2018-09-03] MEDS: PANTOPRAZOLE 40MG TAB (PROTONIX) PO (09:05)
[2018-09-03] MEDS: FERROUS SULFATE 325MG TAB PO (09:05)
[2018-09-03] MEDS: PROPRANOLOL 10 MG TAB PO (09:05)
[2018-09-03] MEDS: CEPHALEXIN 500 MG CAP PO (09:05)
== END 2018-09-03 11:21 | disposition home or self-care (01) | DRG 689 ==
LOC: M PCU 09-01 00:15 → M ED 17:09 → M ED INP 19:41
DX: N39.0 Urinary tract infection, site not specified (principal); K72.00 Acute and subacute hepatic failure without coma; K74.60 Unspecified cirrhosis of liver; I48.0 Paroxysmal atrial fibrillation; Z79.899 Other long term (current) drug therapy; E11.9 Type 2 diabetes mellitus without complications; I10 Essential (primary) hypertension; D64.9 Anemia, unspecified; K21.9 Gastro-esophageal reflux disease without esophagitis; Z79.01 Long term (current) use of anticoagulants; K75.4 Autoimmune hepatitis; E66.01 Morbid (severe) obesity due to excess calories; I25.10 Atherosclerotic heart disease of native coronary artery without angina pectoris; Z95.0 Presence of cardiac pacemaker; Z88.0 Allergy status to penicillin; Z88.2 Allergy status to sulfonamides; Z88.6 Allergy status to analgesic agent; Z88.5 Allergy status to narcotic agent; Z88.8 Allergy status to other drugs, medicaments and biological substances; Z87.891 Personal history of nicotine dependence; Z79.4 Long term (current) use of insulin; E78.5 Hyperlipidemia, unspecified; B96.4 Proteus (mirabilis) (morganii) as the cause of diseases classified elsewhere

== ENCOUNTER 2018-09-17 10:52 | Day surgery (SDC) | payer MEDICARE ==
[~2018-09-17 10:52] MED LIST changes: -AMLO2.5T PO; -ARTI99.0 OU; -CLOP75TA2 PO; -EYECAP PO; -FERR1TAB8 PO; -FURO20TA2 PO; -FURO40TA2 PO; -INSUDET SC; -INSUH10VL SC; -KEPP1TAB PO; -LACT10SO29 PO; +MIDAZOLAM INJ 2 MG/2 ML VIAL (J2250) As Ordered; -OCUVTAB4 PO; -OMEP40CA2 PO; -PANT40TA2 PO; -PROP10TA56 PO; -SPIR50TA2 PO; -VITA200015 PO; -XIFA550T PO; +fentaNYL 100 MCG/2 ML INJECTION (J3010) As Ordered
[2018-09-17 12:32] LABS: BEDSIDE GLUCOSE 131 MG/DL (83-110)
[2018-09-17] MEDS: LIDOCAINE 3.5 % 1ML OPHTH TOPICAL GEL OU (12:37)
[2018-09-17] MEDS: POVIDONE-IODINE 5% OPHTH PREP SOL 30ML As Ordered (14:45)
[2018-09-17] MEDS ORDERED: LABETALOL HCL 100 MG/20 ML VIAL As Ordered (14:59)
[2018-09-17] MEDS: SODIUM BICARBONATE 8.4% INJ 50MEQ 50 ML VIAL As Ordered (14:59)
[2018-09-17] MEDS: LIDOCAINE 2% W/EPIN INJ 20ML **PRES FREE As Ordered (14:59)
[2018-09-17] MEDS: TOBRADEX OPHTH OINT 3.5 GM As Ordered (15:14)
== END 2018-09-17 16:23 | disposition home or self-care (01) ==
LOC: M SDC 10:52
DX: H02.413 Mechanical ptosis of bilateral eyelids (principal); H02.831 Dermatochalasis of right upper eyelid; H02.834 Dermatochalasis of left upper eyelid; I48.91 Unspecified atrial fibrillation; Z98.61 Coronary angioplasty status; Z95.0 Presence of cardiac pacemaker; I10 Essential (primary) hypertension; E78.5 Hyperlipidemia, unspecified; Z79.01 Long term (current) use of anticoagulants; Z79.899 Other long term (current) drug therapy; E11.9 Type 2 diabetes mellitus without complications; Z79.4 Long term (current) use of insulin; Z88.2 Allergy status to sulfonamides; Z88.8 Allergy status to other drugs, medicaments and biological substances; Z87.891 Personal history of nicotine dependence; K21.9 Gastro-esophageal reflux disease without esophagitis
CPT/HCPCS: 67904

== ENCOUNTER → 2018-09-25 | Outpatient (REF) | payer MEDICARE ==
[2018-09-25 19:20] LABS: BASO # 0.1 10^3/uL (0.0-0.2); BASO % 0.9 % (0.0-1.0); EOS # 0.1 10^3/uL (0.0-0.50); HEMATOCRIT 34.8 % (36.0-47.0); HEMOGLOBIN 11.4 g/dl (12.0-15.5); IMMATURE GRANULOCYTE % 0.2 % (0-3.0); LYMPH # 1.6 10^3/uL (1.5-4.5); LYMPH % 29.7 % (24.0-44.0); MEAN CORPUSCULAR HEMOGLOBIN 31.9 pg (27.0-33.0); MEAN CORPUSCULAR HGB CONC 32.8 g/dl (32.0-36.5); MEAN CORPUSCULAR VOLUME 97.5 fl (80.0-96.0); MONO # 0.4 10^3/uL (0.0-0.8); MONO % 7.5 % (0.0-5.0); NEUTROPHILS # 3.3 10^3/uL (1.8-7.7); NEUTROPHILS % 59.7 % (36.0-66.0); PLATELET COUNT, AUTOMATED 118 10^3/uL (150-450); RED BLOOD COUNT 3.57 10^6/uL (4.00-5.40); RED CELL DISTRIBUTION WIDTH 14.3 % (11.5-14.5); WHITE BLOOD COUNT 5.5 10^3/uL (4.0-10.0)
[2018-09-25 19:44] LABS: ALBUMIN 3.3 GM/DL (3.2-5.2); ANION GAP 9 MEQ/L (8-16); BLOOD UREA NITROGEN 23 MG/DL (7-18); CALCIUM LEVEL 8.6 MG/DL (8.8-10.2); CARBON DIOXIDE LEVEL 28 MEQ/L (21-32); CHLORIDE LEVEL 102 MEQ/L (98-107); CREATININE FOR GFR 1.49 MG/DL (0.55-1.30); GLOMERULAR FILTRATION RATE 36.1 (>39); GLUCOSE, FASTING 238 MG/DL (70-100); PHOSPHORUS LEVEL 2.9 MG/DL (2.5-4.9); POTASSIUM SERUM 4.2 MEQ/L (3.5-5.1); SODIUM LEVEL 139 MEQ/L (136-145)
== END ==
LOC: M LABDRWAD 18:58
DX: K74.60 Unspecified cirrhosis of liver (principal)
CPT/HCPCS: 80069

== ENCOUNTER 2019-02-05 15:04 | Emergency (ER) | payer MEDICARE ==
[~2019-02-05 15:04] MED LIST changes: +ALDA25TA2 PO; +AMLO2.5T3 PO; +AMLO5TAB6 PO; +ARTI99.0 OU; +ATOR40TA75 PO; +CART120C PO; +CEPH500C PO; +CLOP75TA2 PO; +ELIQ5TAB PO; +EYECAP PO; +FERR1TAB8 PO; +FISH1000 PO; +FURO20TA2 PO; +FURO40TA2 PO; +FURO80TA2 PO; +INSUDET SC; +INSUH10VL SC; +KEPP1TAB PO; +KLOR10TA76 PO; +LACT10SO29 PO; +LACT10SO3 PO; +MACR100C43 PO; -MIDAZOLAM INJ 2 MG/2 ML VIAL (J2250) As Ordered; +NIZO2SHA EXT; +NOVOINJ3 SC; +OCUVTAB4 PO; +OMEP40CA2 PO; +PANT40TA3 PO; +PRESCAP PO; +PRESCAP6 PO; +PROP10TA56 PO; +SPIR-10 PO; +SPIR50TA4 PO; +VITA200015 PO; +XIFA550T PO; -fentaNYL 100 MCG/2 ML INJECTION (J3010) As Ordered
[2019-02-05] MEDS ORDERED: DEXTROSE 50% 50 ML SYRINGE IV STA (15:57)
[2019-02-05 16:30] VITALS: BP 167/73
== END 2019-02-05 16:48 | disposition left against medical advice (07) ==
LOC: M ED 15:04
DX: E11.641 Type 2 diabetes mellitus with hypoglycemia with coma (principal); Z53.21 Procedure and treatment not carried out due to patient leaving prior to being seen by health care provider; K74.60 Unspecified cirrhosis of liver; Z95.0 Presence of cardiac pacemaker; Z95.5 Presence of coronary angioplasty implant and graft; Z79.01 Long term (current) use of anticoagulants; Z79.4 Long term (current) use of insulin; Z79.899 Other long term (current) drug therapy; Z88.8 Allergy status to other drugs, medicaments and biological substances; Z88.1 Allergy status to other antibiotic agents; Z88.5 Allergy status to narcotic agent; Z88.0 Allergy status to penicillin; Z88.2 Allergy status to sulfonamides; Z91.89 Other specified personal risk factors, not elsewhere classified

== ENCOUNTER → 2019-02-06 | Outpatient (REF) | payer MEDICARE ==
[2019-02-06 19:48] LABS: BASO % 0.6 % (0.0-1.0); EOS # 0.3 10^3/uL (0.0-0.50); EOS % 4.3 % (0.0-3.0); HEMATOCRIT 33.3 % (36.0-47.0); HEMOGLOBIN 11.1 g/dl (12.0-15.5); LYMPH # 1.7 10^3/uL (1.5-4.5); LYMPH % 26.7 % (24.0-44.0); MEAN CORPUSCULAR HEMOGLOBIN 32.9 pg (27.0-33.0); MEAN CORPUSCULAR HGB CONC 33.3 g/dl (32.0-36.5); MEAN CORPUSCULAR VOLUME 98.8 fl (80.0-96.0); MONO # 0.5 10^3/uL (0.0-0.8); MONO % 8.5 % (0.0-5.0); NEUTROPHILS # 3.8 10^3/uL (1.8-7.7); NEUTROPHILS % 59.6 % (36.0-66.0); PLATELET COUNT, AUTOMATED 117 10^3/uL (150-450); RED BLOOD COUNT 3.37 10^6/uL (4.00-5.40); WHITE BLOOD COUNT 6.3 10^3/uL (4.0-10.0)
[2019-02-06 19:59] LABS: ALBUMIN 3.2 GM/DL (3.2-5.2); BILIRUBIN,TOTAL 4.7 MG/DL (0.2-1.0); CALCIUM LEVEL 8.8 MG/DL (8.8-10.2); CREATININE FOR GFR 1.64 MG/DL (0.55-1.30); GLOMERULAR FILTRATION RATE 32.3 (>39); POTASSIUM SERUM 4.5 MEQ/L (3.5-5.1); TOTAL PROTEIN 6.3 GM/DL (6.4-8.2)
[2019-02-06 20:15] LABS: HEMOGLOBIN A1c 6.1 %
== END ==
LOC: M SFHCADAM 16:42
PROVIDERS: ATTEND Family Medicine
DX: E11.21 Type 2 diabetes mellitus with diabetic nephropathy (principal)
CPT/HCPCS: 80053; 83036; 85025; G0463

== ENCOUNTER → 2019-03-05 | Outpatient (CLI) | payer MEDICARE ==
[2019-03-05 08:10] LABS: BASO # 0.1 10^3/uL (0.0-0.2); BASO % 0.8 % (0.0-1.0); EOS # 0.2 10^3/uL (0.0-0.50); EOS % 2.7 % (0.0-3.0); HEMATOCRIT 37.4 % (36.0-47.0); HEMOGLOBIN 12.3 g/dl (12.0-15.5); LYMPH # 1.4 10^3/uL (1.5-4.5); MEAN CORPUSCULAR HEMOGLOBIN 32.1 pg (27.0-33.0); MEAN CORPUSCULAR HGB CONC 32.9 g/dl (32.0-36.5); MEAN CORPUSCULAR VOLUME 97.7 fl (80.0-96.0); MONO # 0.4 10^3/uL (0.0-0.8); MONO % 6.4 % (0.0-5.0); NEUTROPHILS % 66.9 % (36.0-66.0); PLATELET COUNT, AUTOMATED 111 10^3/uL (150-450); RED BLOOD COUNT 3.83 10^6/uL (4.00-5.40); WHITE BLOOD COUNT 5.9 10^3/uL (4.0-10.0)
[2019-03-05 08:45] LABS: ALBUMIN 3.3 GM/DL (3.2-5.2); BILIRUBIN,TOTAL 4.6 MG/DL (0.2-1.0); CALCIUM LEVEL 8.6 MG/DL (8.8-10.2); CREATININE FOR GFR 1.66 MG/DL (0.55-1.30); GLOMERULAR FILTRATION RATE 31.9 (>39); PHOSPHORUS LEVEL 3.7 MG/DL (2.5-4.9); POTASSIUM SERUM 4.1 MEQ/L (3.5-5.1); TOTAL PROTEIN 6.2 GM/DL (6.4-8.2)
--- NOTE | 2019-03-05 09:49 | REP ---
RIGHT UPPER QUADRANT ULTRASOUND: Real-time sonographic evaluation of right upper quadrant performed. Patient has had a prior cholecystectomy. There is no intrahepatic or extrahepatic biliary dilatation, common bile duct measuring 3 mm. Liver demonstrates heterogeneous echotexture with no mass. A TIPS shunt is present and is patent. Visualized pancreas is grossly unremarkable, pancreatic tail is not well visualized due to overlying bowel gas. Right kidney demonstrates no hydronephrosis with normal size 9.2 cm in length. No ascites is seen. Please note the study is somewhat limited due to patient body habitus and bowel gas. IMPRESSION: Status post cholecystectomy without biliary dilatation. Heterogeneous echotexture of the liver with no mass. Patent TIPS shunt. No ascites. Electronically Signed by John Benavidez MD 03/06/2019 10:20 A
== END ==
LOC: M RAD 07:24
PROVIDERS: ATTEND Internal Medicine Gastroenterology
DX: R18.8 Other ascites (principal); Z90.49 Acquired absence of other specified parts of digestive tract; Z87.19 Personal history of other diseases of the digestive system

== ENCOUNTER → 2019-03-11 | Outpatient (REF) | payer MEDICARE | LOC: M LABDRWAD 12:27 | PROVIDERS: ATTEND Nurse Practitioner Family | DX: E11.40 Type 2 diabetes mellitus with diabetic neuropathy, unspecified (principal) ==

== ENCOUNTER → 2019-04-22 | Outpatient (REF) | payer MEDICARE ==
[~2019-04-22] MED LIST changes: +CLAR10TA7 PO; +ELIQ2.5T PO
[2019-04-22 20:16] LABS: BASO % 0.7 % (0.0-1.0); EOS # 0.2 10^3/uL (0.0-0.50); HEMATOCRIT 34.5 % (36.0-47.0); HEMOGLOBIN 11.5 g/dl (12.0-15.5); LYMPH # 1.4 10^3/uL (1.5-4.5); LYMPH % 24.9 % (24.0-44.0); MEAN CORPUSCULAR HEMOGLOBIN 33.1 pg (27.0-33.0); MEAN CORPUSCULAR HGB CONC 33.3 g/dl (32.0-36.5); MEAN CORPUSCULAR VOLUME 99.4 fl (80.0-96.0); MONO # 0.5 10^3/uL (0.0-0.8); NEUTROPHILS # 3.6 10^3/uL (1.8-7.7); NEUTROPHILS % 63.1 % (36.0-66.0); PLATELET COUNT, AUTOMATED 117 10^3/uL (150-450); RED BLOOD COUNT 3.47 10^6/uL (4.00-5.40); WHITE BLOOD COUNT 5.7 10^3/uL (4.0-10.0)
[2019-04-22 20:35] LABS: INR 1.5; PROTHROMBIN TIME 18.3 SECONDS (12.1-14.4)
[2019-04-22 20:58] LABS: ALBUMIN 3.2 GM/DL (3.2-5.2); BILIRUBIN,TOTAL 4.5 MG/DL (0.2-1.0); CALCIUM LEVEL 8.5 MG/DL (8.8-10.2); CHOLESTEROL RISK RATIO 2.75 (<5); CREATININE FOR GFR 1.45 MG/DL (0.55-1.30); GLOMERULAR FILTRATION RATE 37.3 (>39); POTASSIUM SERUM 4.2 MEQ/L (3.5-5.1); THYROID STIMULATING HORMONE 1.37 uIU/ML (0.358-3.740); TOTAL PROTEIN 6.3 GM/DL (6.4-8.2)
[2019-04-22 21:10] LABS: HEMOGLOBIN A1c 6.3 %
== END ==
LOC: M SFHCADAM 14:15
PROVIDERS: ATTEND Physician Assistant Medical
DX: I48.2 Chronic atrial fibrillation (principal); D63.8 Anemia in other chronic diseases classified elsewhere; E11.21 Type 2 diabetes mellitus with diabetic nephropathy; Z79.01 Long term (current) use of anticoagulants; K75.4 Autoimmune hepatitis
CPT/HCPCS: 80053; 80061; 82105; 83036; 84443; 85025; 85610; G0463

== ENCOUNTER 2019-05-03 13:28 | Emergency (ER) | payer MEDICARE ==
[~2019-05-03] VITALS: Ht 152.4 cm; Wt 95.5 kg
[~2019-05-03 13:28] MED LIST changes: -CLAR10TA7 PO; -ELIQ2.5T PO
--- NOTE | 2019-05-03 14:14 | REP ---
CT study of the cervical spine without contrast: History: Trauma. Technique: Helical scanning is acquired and overlapping 2 mm high resolution axial images were generated and reviewed at bone and soft tissue window settings. Coronal and sagittal multiplanar re-formations images are generated. CT findings: There is no evidence of cervical spine element fracture. No skull base fracture is seen. Cervical vertebral body heights are preserved. Alignment is normal. Facet joints are normally aligned bilaterally at each cervical level on multiplanar re-formations images. There is no evidence of intraspinal or paraspinal hematoma. No extra vertebral abnormality is seen. There are moderate degenerative disc changes at the AC 03/04 through C6-7 and C7-T1 levels. There is posterior osteophytic ridging at C 06/07. Multilevel uncovertebral spurring is present. There is fairly advanced facet arthropathy, most pronounced on the left in the upper and mid cervical spine. Vascular calcification is observed. Impression: Advanced degenerative spondylosis changes. Otherwise negative CT study of the cervical spine without contrast. No fracture seen. Electronically Signed by Elias Adrian MD 05/03/2019 02:05 P
--- NOTE | 2019-05-03 14:29 | REP ---
CT BRAIN WITHOUT CONTRAST: REASON: DKA. COMPARISON: 08/31/2018 TECHNIQUE: 4.5 mm contiguous transaxial sections were obtained from the skull base to the cerebral convexities with thin cuts through the posterior fossa without the administration of intravenous contrast. FINDINGS: The ventricles and sulci are consistent with the patient's age. There are no extra-axial fluid collections. There is no mass effect. The deep cerebral white matter is consistent with the patient's age. The orbital and petrous structures, cerebellopontine angles, and posterior fossa are unremarkable. The sella turcica, cavernous, and paracavernous structures are essentially unremarkable. The visualized portions of the paranasal sinuses and mastoid air cells are clear. Images of the skull base show no gross abnormality. IMPRESSION: Essentially unremarkable CT examination of the brain. No significant change from the prior exam. Electronically Signed by Felipe Davila DO 05/03/2019 02:49 P
[2019-05-03 14:40] LABS: BASO % 0.7 % (0.0-1.0); EOS # 0.1 10^3/uL (0.0-0.50); EOS % 1.3 % (0.0-3.0); HEMATOCRIT 32.3 % (36.0-47.0); HEMOGLOBIN 11.1 g/dl (12.0-15.5); LYMPH # 0.9 10^3/uL (1.5-4.5); LYMPH % 19.6 % (24.0-44.0); MEAN CORPUSCULAR HEMOGLOBIN 34.3 pg (27.0-33.0); MEAN CORPUSCULAR HGB CONC 34.4 g/dl (32.0-36.5); MEAN CORPUSCULAR VOLUME 99.7 fl (80.0-96.0); MONO # 0.3 10^3/uL (0.0-0.8); MONO % 7.3 % (0.0-5.0); NEUTROPHILS # 3.2 10^3/uL (1.8-7.7); NEUTROPHILS % 70.7 % (36.0-66.0); RED BLOOD COUNT 3.24 10^6/uL (4.00-5.40); WHITE BLOOD COUNT 4.5 10^3/uL (4.0-10.0)
[2019-05-03 14:41] LABS: PLATELET COUNT, AUTOMATED 90 10^3/uL (150-450)
[2019-05-03] MEDS ORDERED: CLAR10TA7 PO (14:41)
[2019-05-03] MEDS ORDERED: LACT10SO3 PO (14:41)
[2019-05-03] MEDS ORDERED: PRESCAP PO (14:41)
[2019-05-03] MEDS ORDERED: ELIQ2.5T PO (14:41)
[2019-05-03 14:58] LABS: HEMOGLOBIN A1c 5.8 %
[2019-05-03 15:03] LABS: ALBUMIN 3.1 GM/DL (3.2-5.2); ALT/SGPT 46 U/L (12-78); BILIRUBIN,TOTAL 3.7 MG/DL (0.2-1.0); BLOOD UREA NITROGEN 31 MG/DL (7-18); CALCIUM LEVEL 8.7 MG/DL (8.8-10.2); CARBON DIOXIDE LEVEL 25 MEQ/L (21-32); CHLORIDE LEVEL 108 MEQ/L (98-107); CREATININE FOR GFR 1.39 MG/DL (0.55-1.30); GLOMERULAR FILTRATION RATE 39.1 (>39); GLUCOSE, FASTING 77 MG/DL (70-100); SODIUM LEVEL 143 MEQ/L (136-145); TOTAL PROTEIN 6.1 GM/DL (6.4-8.2)
--- NOTE | 2019-05-03 15:55 | REP ---
Portable chest x-ray: Single view. Comparison study: August 31, 2018. History: Cough. Findings: A bipolar pacemaker remains in the right heart via the left side. No infiltrate is seen. Pleural angles are sharp. Heart size is mildly prominent. The aorta is calcific and tortuous. Pulmonary vasculature is cephalized. Impression: Mildly prominent heart with pacemaker. Pulmonary vascular cephalization. No pulmonary edema or pleural effusion seen. No focal infiltrate noted. Electronically Signed by Elias Adrian MD 05/03/2019 05:44 P
[2019-05-03 16:19] LABS: MAGNESIUM LEVEL 2.3 MG/DL (1.8-2.4)
[2019-05-03] MEDS ORDERED: DEXTROSE 50% 50 ML SYRINGE IV STA (16:27)
[2019-05-03 16:40] LABS: CK-MB VALUE MASS 1.9 NG/ML (<3.6); CPK CREATINE PHOSPHOKINASE 91 U/L (26-192); MB/CK RELATIVE INDEX 2.09 (< OR =4); TROPONIN I < 0.02 NG/ML (< 0.10)
[2019-05-03 16:45] VITALS: BP 138/60
--- NOTE | 2019-05-05 06:39 | ECGEPIP ---
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
--- NOTE | 2019-05-05 06:46 | ECGEPIP ---
[facility] - ED Test Date: 2019-05-03 Pat Name: JOSE CANNON Department: Room: - Gender: Female Senior Benefits Manager: SASHA : 1940 Requested By: BLAZE Cooley Order Number: [id number] Reading MD: Hernán Barksdale Measurements Intervals [place] Rate: 104 P: [place]: -1 QRS: QRSD: 122 T: 2 QT: 391 QTc: 515 Interpretive Statements ATRIAL FIBRILLATION WITH RAPID VENTRICULAR RESPONSE BORDERLINE LEFT AXIS DEVIATION RIGHT BUNDLE BRANCH BLOCK MODERATE VOLTAGE CRITERIA FOR LVH, CONSIDER NORMAL VARIANT RHYTHM/RATE CHANGE COMPARED TO PRIOR ON SAME DATE Electronically Signed on 05-05-2019 6:45:28 EDT by Hernán Barksdale
== END 2019-05-03 17:34 | disposition home or self-care (01) ==
LOC: M ED 13:28
DX: E11.649 Type 2 diabetes mellitus with hypoglycemia without coma (principal); N39.0 Urinary tract infection, site not specified; I50.9 Heart failure, unspecified; I25.10 Atherosclerotic heart disease of native coronary artery without angina pectoris; I48.91 Unspecified atrial fibrillation; Z95.0 Presence of cardiac pacemaker; N18.3 Chronic kidney disease, stage 3 (moderate); K75.4 Autoimmune hepatitis; Z95.5 Presence of coronary angioplasty implant and graft; F17.200 Nicotine dependence, unspecified, uncomplicated; Z88.0 Allergy status to penicillin; Z88.2 Allergy status to sulfonamides; Z88.1 Allergy status to other antibiotic agents; Z88.5 Allergy status to narcotic agent; Z88.8 Allergy status to other drugs, medicaments and biological substances; Z88.6 Allergy status to analgesic agent; Z91.048 Other nonmedicinal substance allergy status; Z79.899 Other long term (current) drug therapy; Z79.01 Long term (current) use of anticoagulants

== ENCOUNTER 2019-05-11 15:01 | Inpatient (IN) | payer MEDICARE ==
[~2019-05-11 15:01] MED LIST changes: +CLAR10TA7 PO; +ELIQ2.5T PO
[2019-05-11] MEDS ORDERED: INSUDET SC (15:12)
[2019-05-11] MEDS ORDERED: NS 1,000 ML IV SCH (15:17)
[2019-05-11] MEDS ORDERED: NOVOINJ3 SC ×4 (15:20→16:51)
[2019-05-11] MEDS ORDERED: PRESCAP PO (15:20)
[2019-05-11 15:59] LABS: VENOUS BASE EXCESS 1.6 (-2.0-2.0); VENOUS HCO3 26.6 MEQ/L (23.0-27.0); VENOUS PARTIAL PRESSURE CO2 43.4 mmHg (38.0-50.0); VENOUS PARTIAL PRESSURE O2 42.9 mmHg (30.0-50.0); VENOUS PH 7.405 UNITS (7.330-7.430); VENOUS STANDARD HCO3 25.3 MEQ/L; VENOUS TOTAL CO2 27.9 MEQ/L (24.0-28.0)
[2019-05-11 15:59] LABS: EOS # 0.1 10^3/uL (0.0-0.50); EOS % 2.2 % (0.0-3.0); HEMATOCRIT 32.5 % (36.0-47.0); HEMOGLOBIN 10.9 g/dl (12.0-15.5); LYMPH # 1.1 10^3/uL (1.5-4.5); LYMPH % 27.2 % (24.0-44.0); MEAN CORPUSCULAR HGB CONC 33.5 g/dl (32.0-36.5); MEAN CORPUSCULAR VOLUME 101.2 fl (80.0-96.0); MONO # 0.3 10^3/uL (0.0-0.8); MONO % 7.7 % (0.0-5.0); NEUTROPHILS # 2.6 10^3/uL (1.8-7.7); NEUTROPHILS % 61.7 % (36.0-66.0); RED BLOOD COUNT 3.21 10^6/uL (4.00-5.40); WHITE BLOOD COUNT 4.2 10^3/uL (4.0-10.0)
[2019-05-11 16:11] LABS: INR 1.58; PROTHROMBIN TIME 18.6 SECONDS (11.8-14.0)
[2019-05-11 16:12] LABS: PLATELET COUNT, AUTOMATED 94 10^3/uL (150-450)
--- NOTE | 2019-05-11 16:19 | REP ---
Clinical: Altered mental status. Comparison: 05/03/2019 . Findings: Age-related atrophy and microvascular ischemic changes are appreciated. The ventricles and sulci are symmetric. Benavidez-white differentiation is maintained. There is no evidence for acute intracranial hemorrhage, mass/mass effect, pathology or infarction. No extra-axial fluid collection. Calvarium is intact. Paranasal sinuses and mastoid air cells are clear. Impression: Age related atrophy and microvascular ischemic changes. No acute intracranial hemorrhage, infarction, or mass/mass effect. Electronically Signed by Nakul Iyer MD 05/11/2019 04:09 P
[2019-05-11 16:27] LABS: OSMOLALITY SERUM 307 MOSM/KG (280-301)
[2019-05-11 16:31] LABS: ALBUMIN 3.2 GM/DL (3.2-5.2); ALT/SGPT 43 U/L (12-78); BILIRUBIN,DIRECT 0.6 MG/DL (0.0-0.2); BLOOD UREA NITROGEN 30 MG/DL (7-18); CALCIUM LEVEL 8.3 MG/DL (8.8-10.2); CARBON DIOXIDE LEVEL 28 MEQ/L (21-32); CHLORIDE LEVEL 107 MEQ/L (98-107); CK-MB VALUE MASS 1.3 NG/ML (<3.6); CPK CREATINE PHOSPHOKINASE 88 U/L (26-192); CREATININE FOR GFR 1.43 MG/DL (0.55-1.30); GLOMERULAR FILTRATION RATE 37.9 (>39); GLUCOSE, FASTING 198 MG/DL (70-100); MB/CK RELATIVE INDEX 1.48 (< OR =4); POTASSIUM SERUM 3.8 MEQ/L (3.5-5.1); SODIUM LEVEL 143 MEQ/L (136-145); TOTAL PROTEIN 6.3 GM/DL (6.4-8.2); TROPONIN I < 0.02 NG/ML (< 0.10)
[2019-05-11] MEDS ORDERED: LACTULOSE 20 GM/30 ML SYRUP UD PO ONE (16:45)
--- NOTE | 2019-05-11 16:51 | ECGEPIP ---
[facility] - ED Test Date: 2019-05-11 Pat Name: JOSE CANNON Department: Room: - Gender: Female Clinical Nursing Coordinator: letha : 1940 Requested By: Regina Rene Order Number: [id number] Reading MD: Regina Rene Measurements Intervals [place] Rate: 70 P: 64 [place]: 199 QRS: QRSD: 121 T: QT: 425 QTc: 459 Interpretive Statements ELECTRONIC ATRIAL PACEMAKER RIGHT BUNDLE BRANCH BLOCK VOLTAGE CRITERIA FOR LVH PROBABLE LATERAL MYOCARDIAL INFARCTION, PROBABLY OLD Electronically Signed on 05-11-2019 16:50:51 EDT by Regina Rene
[2019-05-11] MEDS ORDERED: ELIQ5TAB PO (16:52)
[2019-05-11] MEDS: FUROSEMIDE 40 MG TAB PO SCH (17:00)
[2019-05-11] MEDS ORDERED: GLUCAGON FOR INJ 1 MG VIAL (J1610) SC PRN (17:30)
[2019-05-11] MEDS ORDERED: DEXTROSE 50% 50 ML SYRINGE IV PRN (17:30)
[2019-05-11] MEDS ORDERED: GLUCOSE 4 GM CHEW TABLET PO PRN (17:30)
[2019-05-11] MEDS ORDERED: LACTULOSE 20 GM/30 ML SYRUP UD PO SCH (18:00)
--- NOTE | 2019-05-11 18:11 | HPEPDOC ---
General Date of Admission 05/11/19 Date of Service: May 11, 2019 Chief Complaint The patient is a 78-year-old female admitted with a reason for visit of High Blood Sugar. 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 The patient states that she has been taking her medications regularly over the last several days. However, states that she has been having difficulty remembering things, and generally feels "out of it." She denies any complaints of fevers, chills, chest pain, palpitations, shortness of breath, abdominal pain, numbness/tingling, focal neurological weakness in the extremities, or any nausea/vomiting/diarrhea. In the ER, the patient's ammonia level was noted to be elevated at 57. CT head revealed no acute findings. The patient will be admitted under the service of the [facility] for further evaluation and management. Home Medications Scheduled Apixaban (Eliquis) 5 Mg Tablet, 5 MG PO BID, (Reported) PATIENT STATES THIS WAS INCREASED FROM 2.5MG TO 5MG - UNABLE TO VERIFY IF THIS IS CORRECT OR WHEN THE CHANGE OCCURRED. Atorvastatin Calcium (Atorvastatin Calcium) 40 Mg Tab, 40 MG PO DAILY, (Reported) Cholecalciferol (Vitamin D3) (Vitamin D3) 2,000 Unit Tab, 2,000 UNIT PO DAILY, (Reported) Diltiazem HCl (Cartia Xt) 120 Mg Cap, 120 MG PO DAILY, (Reported) Ferrous Sulfate (Ferrous Sulfate) 325 Mg Tab, 325 MG PO DAILY, (Reported) Furosemide (Furosemide) 40 Mg Tab, 40 MG PO BID, (Reported) Insulin Aspart (Novolog Flexpen) 100 Unit/1 Ml Insuln.pen, 1 DOSE SC AC, (Reported) PER SLIDING SCALE Insulin Detemir (Levemir) 100 Unit/1 Ml Vial, 20 UNITS SC BID, (Reported) Lactulose (Lactulose) 10 Gm/15 Ml Solution, 30 ML PO TID, (Reported) [place]-3 Fatty Acids/Fish Oil (Fish Oil 1,000 mg Capsule) 1,000 Mg Cap, 2,000 MG PO DAILY, (Reported) Pantoprazole Sodium (Pantoprazole Sodium) 40 Mg Tab, 40 MG PO DAILY, (Reported) Potassium Chloride (Klor-Con M10) 10 Meq Tabcr, 10 MEQ PO BID, (Reported) Propranolol HCl (Propranolol HCl) 10 Mg Tab, 5 MG PO BID, (Reported) Rifaximin (Xifaxan) 550 Mg Tab, 550 MG PO BID, (Reported) Spironolactone (Spironolactone) 25 Mg Tab, 25 MG PO DAILY, (Reported) Vit A/Vit C/Vit E/Zinc/Copper (Preservision Areds Softgel) 1 Each Capsule, 2 CAP PO BID, (Reported) Allergies Coded Allergies: Penicillins (Verified Allergy, Intermediate, SWELLING, 05/03/19) Sulfa (Sulfonamide Antibiotics) (Verified Allergy, Mild, RASH, 05/03/19) aspirin (Verified Allergy, Mild, RASH, 05/03/19) phenazopyridine (Verified Allergy, Mild, RASH, 05/03/19) TAPE (Verified Allergy, Unknown, 05/03/19) ciprofloxacin (Verified Adverse Reaction, Intermediate, PANCYTOPENIA, 05/03/19) duloxetine (Verified Adverse Reaction, Mild, DIZZINESS, 05/03/19) morphine (Verified Adverse Reaction, Mild, DIZZINESS, 05/03/19) nortriptyline (Verified Adverse Reaction, Mild, DROWSINESS, 05/03/19) Past Medical History Medical History As noted in HPI. Surgical History TRANSJUGULAR INTRAHEPATCIC PORTOSYSTEMOIC SHUNT PLACEMENT - JORDAN 07/29 APPENDECTOMY 1970 TUBAL LIGATION 1972 CHOLECYSTECTOMY 2005 BLADDER SURGERY B CATARACT SURGERY, 1 MONTH APART 2000 EYE LID LIFT 2010 STENTS PLACED IN HEART [address] RASHID 2018 Social History * Smoker: former Smoker Alcohol: Denies Drugs: denies Review of Systems Other systems 10 point review of systems negative unless otherwise specified in HPI. Physical Examination General Exam: Positive: Cooperative, No Acute Distress, Other (oriented to pers on and year, but not place or situation) Eye Exam: Positive: Sclera icteric ENT Exam: Positive: Atraumatic, Mucous membr. moist/pink Neck Exam: Negative: JVD Chest Exam: Positive: Clear to auscultation, Normal air movement Heart Exam: Positive: Rate Normal, Normal S1, Normal S2 Abdomen Exam: Positive: Soft; Negative: Tenderness Extremity Exam: Negative: Tenderness, Swelling Skin Exam: Positive: Other skin issue (+Jaundiced skin) Neuro Exam: Positive: Strength at 5/5 X4 ext, Cranial Nerves 3-12 NL Vital Signs Vital Signs Date Time Temp Pulse Resp B/P (MAP) Pulse Ox O2 Delivery O2 Flow Rate FiO2 05/11/19 16:46 73 160/68 (98) 100 05/11/19 15:46 97.7 18 Laboratory Data Labs 24H Laboratory Tests 2 05/11/19 15:25: Prothrombin Time 18.6H, Prothromb Time International Ratio 1.58, Blood Gas Bicarbonate Standard 25.3, Venous Blood pH 7.405, Venous Blood Partial Pressure CO2 43.4, Venous Blood Partial Pressure O2 42.9, Venous Blood Total Carbon Dioxide 27.9, Venous Blood HCO3 26.6, Venous Blood Oxygen Saturation 70.0, Venous Blood Base Excess 1.6, Anion Gap 8, Glomerular Filtration Rate 37.9L, Osmolality 307H, Calcium Level 8.3L, Aspartate Amino Transf (AST/SGOT) 47H, Alanine Aminotransferase (ALT/SGPT) 43, Alkaline Phosphatase 84, Total Bilirubin 6.0H, Direct Bilirubin 0.6H, Ammonia 57H, Total Creatine Kinase 88, Creatine Kinase MB 1.3, Creatine Kinase MB Relative Index 1.48, Troponin I < 0.02, Total Protein 6.3L, Albumin 3.2, Albumin/Globulin Ratio 1.03, Thyroid Stimulating Hormone (TSH) 1.370 05/11/19 15:26: Immature Granulocyte % (Auto) 0.2, White Blood Count 4.2, Red Blood Count 3.21L, Hemoglobin 10.9L, Hematocrit 32.5L, Mean Corpuscular Volume 101.2H, Mean Corpuscular Hemoglobin 34.0H, Mean Corpuscular Hemoglobin Concent 33.5, Red Cell Distribution Width 15.4H, Platelet Count 94L, Neutrophils (%) (Auto) 61.7, Lymphocytes (%) (Auto) 27.2, Monocytes (%) (Auto) 7.7H, Eosinophils (%) (Auto) 2.2, Basophils (%) (Auto) 1.0, Neutrophils # (Auto) 2.6, Lymphocytes # (Auto) 1.1L, Monocytes # (Auto) 0.3, Eosinophils # (Auto) 0.1, Basophils # (Auto) 0.0, Nucleated Red Blood Cells % (auto) 0.0, Immature Platelet Fraction 2.2, Urine Color YELLOW, Urine Appearance CLEAR, Urine pH 6.0, Urine Specific Post 1.008, Urine Protein NEGATIVE, Urine Glucose (UA) NEGATIVE, Urine Ketones NEGATIVE, Urine Blood NEGATIVE, Urine Nitrite NEGATIVE, Urine Bilirubin NEGATIVE, Urine Urobilinogen 0.2, Urine Leukocyte Esterase NEGATIVE, Urine WBC (Auto) 3, Urine RBC (Auto) 2, Urine Hyaline Casts (Auto) 0, Urine Bacteria (Auto) NEGATIVE, Urine Squamous Epithelial Cells 4, Urine Sperm (Auto) , Lactic Acid Level 2.0 05/11/19 15:51: Bedside Glucose (Misc Panel) 177H CBC/BMP Laboratory Tests 05/11/19 15:25 05/11/19 15:26 Red Blood Count 3.21 L, Mean Corpuscular Volume 101.2 H, Mean Corpuscular Hemoglobin 34.0 H, Mean Corpuscular Hemoglobin Concent 33.5, Red Cell Distribution Width 15.4 H, Neutrophils (%) (Auto) 61.7, Lymphocytes (%) (Auto) 27.2, Monocytes (%) (Auto) 7.7 H, Eosinophils (%) (Auto) 2.2, Basophils (%) (Auto) 1.0, Neutrophils # (Auto) 2.6, Lymphocytes # (Auto) 1.1 L, Monocytes # (Auto) 0.3, Eosinophils # (Auto) 0.1, Basophils # (Auto) 0.0 Microbiology Microbiology 05/11/19 Blood Culture, Received Pending 05/11/19 Blood Culture, Received Pending Plan / VTE VTE Prophylaxis Ordered?: Yes Plan Plan Hepatic Encephalopathy in a patient with Underlying Liver Cirrhosis 2/[address] Head with no acute findings 5/5 strength in all extremities Ammonia level noted to be 57 We will increase frequency of Lactulose, Cont Rifaximin Neurochecks Repeat Ammonia level in the AM Hx of Liver Cirrhosis with Recurrent Ascites s/p TIPS in 12/2017, Grade II Varic es Cont Lasix, Aldactone, Propranolol, Rifaximin, and Lactulose CKD Stage III Serum Cr at Baseline Hx of Atrial Fibrillation Cont Eliquis, on propronalol History of diastolic congestive heart failure Continue diuretic therapy as ordered Diabetes mellitus Continue insulin regimen as ordered Carb consistent diet Hx of CAD s/p Stenting, PPM Cont current regimen Dyslipidemia Continue statin DVT Prophylaxis On Eliquis This patient has been signed out to Dr. Jolly of [facility]. PHIL BRITO MD May 11, 2019 18:11
[2019-05-11] MEDS: HumaLOG INSULIN (NovoLOG) PER UNIT SC SCH (18:12)
[2019-05-11] MEDS: APIXABAN 2.5 MG TAB (ELIQUIS) PO SCH (20:58)
[2019-05-11] MEDS: PROPRANOLOL 10 MG TAB PO SCH (20:58)
[2019-05-11] MEDS ORDERED: HumaLOG INSULIN (NovoLOG) PER UNIT SC SCH (21:00)
[2019-05-11] MEDS ORDERED: PILL CUTTER 1 EACH XX PRN (21:30)
[2019-05-11] MEDS: LEVEMIR (INSULIN DETEMIR) 1 UNITS/0.01ML SC SCH (21:57)
[2019-05-11] MEDS: POTASSIUM CHLORIDE 10 MEQ SR TABLET PO SCH (21:57)
[2019-05-11] MEDS: rifAXIMin 550 MG TAB (XIFAXAN) PO SCH (21:57)
[2019-05-11 22:00] VITALS: BP 168/78
[2019-05-11] MEDS: LACTULOSE 20 GM/30 ML SYRUP UD PO SCH (23:37)
[2019-05-12] MEDS: LACTULOSE 20 GM/30 ML SYRUP UD PO SCH ×3 (04:54→17:31)
[2019-05-12 06:00] VITALS: BP 127/69
[2019-05-12 06:11] LABS: HEMATOCRIT 31.8 % (36.0-47.0); HEMOGLOBIN 10.3 g/dl (12.0-15.5); MEAN CORPUSCULAR HEMOGLOBIN 32.9 pg (27.0-33.0); MEAN CORPUSCULAR HGB CONC 32.4 g/dl (32.0-36.5); MEAN CORPUSCULAR VOLUME 101.6 fl (80.0-96.0); RED BLOOD COUNT 3.13 10^6/uL (4.00-5.40); WHITE BLOOD COUNT 3.7 10^3/uL (4.0-10.0)
[2019-05-12 06:21] LABS: PLATELET COUNT, AUTOMATED 94 10^3/uL (150-450)
[2019-05-12 06:35] LABS: ALBUMIN 2.8 GM/DL (3.2-5.2); BILIRUBIN,TOTAL 5.6 MG/DL (0.2-1.0); CALCIUM LEVEL 8.5 MG/DL (8.8-10.2); CREATININE FOR GFR 1.48 MG/DL (0.55-1.30); GLOMERULAR FILTRATION RATE 36.4 (>39); MAGNESIUM LEVEL 2.3 MG/DL (1.8-2.4); POTASSIUM SERUM 3.7 MEQ/L (3.5-5.1); TOTAL PROTEIN 6.1 GM/DL (6.4-8.2)
[2019-05-12] MEDS ORDERED: FERROUS SULFATE 325MG TAB PO SCH (09:00)
[2019-05-12] MEDS ORDERED: SPIRONOLACTONE 25 MG TAB PO SCH (09:00)
[2019-05-12] MEDS ORDERED: PANTOPRAZOLE 40MG TAB (PROTONIX) PO SCH (09:00)
[2019-05-12] MEDS ORDERED: ATORVASTATIN 20 MG TAB PO SCH (09:00)
[2019-05-12] MEDS ORDERED: VITAMIN D 1,000 INTERNATIONAL UNITS TABLET PO SCH (09:00)
[2019-05-12] MEDS: HumaLOG INSULIN (NovoLOG) PER UNIT SC SCH ×3 (09:01→17:31)
[2019-05-12 09:49] VITALS: BP 158/97
[2019-05-12] MEDS: APIXABAN 2.5 MG TAB (ELIQUIS) PO SCH (09:49)
[2019-05-12] MEDS: LEVEMIR (INSULIN DETEMIR) 1 UNITS/0.01ML SC SCH (09:49)
[2019-05-12] MEDS: rifAXIMin 550 MG TAB (XIFAXAN) PO SCH (09:49)
[2019-05-12] MEDS: FUROSEMIDE 40 MG TAB PO SCH ×2 (09:49→17:31)
[2019-05-12] MEDS: POTASSIUM CHLORIDE 10 MEQ SR TABLET PO SCH (09:50)
[2019-05-12] MEDS: PROPRANOLOL 10 MG TAB PO SCH (09:50)
[2019-05-12 14:00] VITALS: BP 137/55
--- NOTE | 2019-05-12 17:03 | DS.PDOC ---
Discharge Summary General Date of Admission May 11, 2019 at 17:30 Date of Discharge 05/12/19 Primary Care Physician: Mervin Mathews MD Attending Physician: Jf Jolly MD Discharge Summary PROCEDURES PERFORMED DURING STAY: [None]. ADMITTING DIAGNOSES: 1. . DISCHARGE DIAGNOSES: 1. . COMPLICATIONS/CHIEF COMPLAINT: Hepatic Encephalopathy. HISTORY OF PRESENT ILLNESS: . HOSPITAL COURSE: . DISCHARGE MEDICATIONS: Please see below. ALLERGIES: Please see below. PHYSICAL EXAMINATION ON DISCHARGE: VITAL SIGNS: Please see below. GENERAL: HEENT: NECK: CARDIOVASCULAR EXAMINATION: RESPIRATORY EXAMINATION: ABDOMINAL EXAMINATION: EXTREMITIES: SKIN: NEUROLOGICAL EXAMINATION: PSYCHIATRIC EXAMINATION: LABORATORY DATA: Please see below. IMAGING: PROGNOSIS: ACTIVITY: [As tolerated]. DIET: DISCHARGE PLAN: DISPOSITION: . DISCHARGE INSTRUCTIONS: 1. . ITEMS TO FOLLOWUP ON ON OUTPATIENT: 1. . DISCHARGE CONDITION: [Stable]. TIME SPENT ON DISCHARGE: Greater than minutes. Vital Signs/I&Os Vital Signs Date Time Temp Pulse Resp B/P (MAP) Pulse Ox O2 Delivery O2 Flow Rate FiO2 05/12/19 14:00 98.0 70 16 137/55 (82) 98 I&O- Last 24 Hours up to 6 AM 05/12/19 06:00 Intake Total 300 ml Output Total 200 ml Balance 100 ml Laboratory Data Labs 24H Laboratory Tests 2 05/11/19 18:11: Bedside Glucose (Misc Panel) 188H 05/12/19 05:51: Nucleated Red Blood Cells % (auto) 0.0, Anion Gap 8, Glomerular Filtration Rate 36.4L, Blood Urea Nitrogen 23H, Creatinine 1.48H, Sodium Level 145, Potassium Level 3.7, Chloride Level 109H, Carbon Dioxide Level 28, Calcium Level 8.5L, Asp artate Amino Transf (AST/SGOT) 42H, Alanine Aminotransferase (ALT/SGPT) 40, Alkaline Phosphatase 78, Total Bilirubin 5.6H, Total Protein 6.1L, Albumin 2.8L, Magnesium Level 2.3, Ammonia 38H, Albumin/Globulin Ratio 0.85L 05/12/19 11:57: Bedside Glucose (Misc Panel) 324H 05/12/19 16:53: Bedside Glucose (Misc Panel) 287H CBC/BMP Laboratory Tests 05/12/19 05:51 Red Blood Count 3.13 L, Mean Corpuscular Volume 101.6 H, Mean Corpuscular Hemo globin 32.9, Mean Corpuscular Hemoglobin Concent 32.4, Red Cell Distribution Width 15.7 H, Calcium Level 8.5 L, Aspartate Amino Transf (AST/SGOT) 42 H, Alanine Aminotransferase (ALT/SGPT) 40, Alkaline Phosphatase 78, Total Bilirubin 5.6 H, Total Protein 6.1 L, Albumin 2.8 L FSBS Laboratory Tests Test 05/11/19 18:11 05/12/19 11:57 05/12/19 16:53 Range/Units Bedside Glucose (Misc Panel) 188 324 287 83-110 MG/DL Microbiology Microbiology 05/11/19 Blood Culture - Preliminary, Resulted No growth after 24 hours . All specim... 05/11/19 Blood Culture - Preliminary, Resulted No growth after 24 hours . All specim... Discharge Medications Scheduled Apixaban (Eliquis) 5 Mg Tablet, 5 MG PO BID, (Reported) PATIENT STATES THIS WAS INCREASED FROM 2.5MG TO 5MG - UNABLE TO VERIFY IF THIS IS CORRECT OR WHEN THE CHANGE OCCURRED. Atorvastatin Calcium (Atorvastatin Calcium) 40 Mg Tab, 40 MG PO DAILY, (Reported) Cholecalciferol (Vitamin D3) (Vitamin D3) 2,000 Unit Tab, 2,000 UNIT PO DAILY, (Reported) Diltiazem HCl (Cartia Xt) 120 Mg Cap, 120 MG PO DAILY, (Reported) Ferrous Sulfate (Ferrous Sulfate) 325 Mg Tab, 325 MG PO DAILY, (Reported) Furosemide (Furosemide) 40 Mg Tab, 40 MG PO BID, (Reported) Insulin Aspart (Novolog Flexpen) 100 Unit/1 Ml Insuln.pen, 1 DOSE SC AC, (Reported) PER SLIDING SCALE Insulin Detemir (Levemir) 100 Unit/1 Ml Vial, 20 UNITS SC BID, (Reported) Lactulose (Lactulose) 10 Gm/15 Ml Solution, 30 ML PO TID, (Reported) [place]-3 Fatty Acids/Fish Oil (Fish Oil 1,000 mg Capsule) 1,000 Mg Cap, 2,000 MG PO DAILY, (Reported) Pantoprazole Sodium (Pantoprazole Sodium) 40 Mg Tab, 40 MG PO DAILY, (Reported) Potassium Chloride (Klor-Con M10) 10 Meq Tabcr, 10 MEQ PO BID, (Reported) Propranolol HCl (Propranolol HCl) 10 Mg Tab, 5 MG PO BID, (Reported) Rifaximin (Xifaxan) 550 Mg Tab, 550 MG PO BID, (Reported) Spironolactone (Spironolactone) 25 Mg Tab, 25 MG PO DAILY, (Reported) Vit A/Vit C/Vit E/Zinc/Copper (Preservision Areds Softgel) 1 Each Capsule, 2 CAP PO BID, (Reported) Allergies Coded Allergies: Penicillins (Verified Allergy, Intermediate, SWELLING, 05/03/19) Sulfa (Sulfonamide Antibiotics) (Verified Allergy, Mild, RASH, 05/03/19) aspirin (Verified Allergy, Mild, RASH, 05/03/19) phenazopyridine (Verified Allergy, Mild, RASH, 05/03/19) TAPE (Verified Allergy, Unknown, 05/03/19) ciprofloxacin (Verified Adverse Reaction, Intermediate, PANCYTOPENIA, 05/03/19) duloxetine (Verified Adverse Reaction, Mild, DIZZINESS, 05/03/19) morphine (Verified Adverse Reaction, Mild, DIZZINESS, 05/03/19) nortriptyline (Verified Adverse Reaction, Mild, DROWSINESS, 05/03/19) Jf Jolly MD May 12, 2019 17:03
--- NOTE | 2019-05-13 08:35 | REP ---
Clinical: Altered mental status . Comparison: 05/03/2019 . Findings: The mediastinum and cardiac silhouette are stable and within normal limits for portable technique. Dual lead pacemaker in stable position. The lung sousa are clear without acute consolidation, effusion, or pneumothorax. Skeletal structures are intact. Impression: No acute cardiopulmonary process appreciated. Electronically Signed by Nakul Iyer MD 05/11/2019 04:26 P
== END 2019-05-12 18:04 | disposition home or self-care (01) | DRG 442 ==
LOC: EDBD 15:01 → M ED 15:01 → M ED INP 17:30 → M MSPAV 21:17
PROVIDERS: ADMIT Internal Medicine; ATTEND Family Medicine
DX: K72.90 Hepatic failure, unspecified without coma (principal); I50.32 Chronic diastolic (congestive) heart failure; I13.0 Hypertensive heart and chronic kidney disease with heart failure and stage 1 through stage 4 chronic kidney disease, or unspecified chronic kidney disease; I85.10 Secondary esophageal varices without bleeding; K74.60 Unspecified cirrhosis of liver; K75.4 Autoimmune hepatitis; N18.3 Chronic kidney disease, stage 3 (moderate); I48.91 Unspecified atrial fibrillation; E78.5 Hyperlipidemia, unspecified; K21.9 Gastro-esophageal reflux disease without esophagitis; I25.10 Atherosclerotic heart disease of native coronary artery without angina pectoris; Z88.0 Allergy status to penicillin; Z88.2 Allergy status to sulfonamides; Z88.6 Allergy status to analgesic agent; Z88.8 Allergy status to other drugs, medicaments and biological substances; Z88.5 Allergy status to narcotic agent; Z79.899 Other long term (current) drug therapy; Z87.891 Personal history of nicotine dependence; Z95.2 Presence of prosthetic heart valve; E11.9 Type 2 diabetes mellitus without complications

== ENCOUNTER → 2019-07-08 | Outpatient (REF) | payer MEDICARE ==
[~2019-07-08] MED LIST changes: -ARTI99.0 OU; +ARTIDRO2 OU; -OMEP40CA2 PO; +OMEP40CA97 PO
[2019-07-08 19:45] LABS: BASO # 0.1 10^3/uL (0.0-0.2); BASO % 0.8 % (0.0-1.0); EOS # 0.2 10^3/uL (0.0-0.50); EOS % 2.8 % (0.0-3.0); HEMATOCRIT 36.7 % (36.0-47.0); HEMOGLOBIN 12.5 g/dl (12.0-15.5); LYMPH # 1.5 10^3/uL (1.5-4.5); LYMPH % 24.9 % (24.0-44.0); MEAN CORPUSCULAR HEMOGLOBIN 33.9 pg (27.0-33.0); MEAN CORPUSCULAR HGB CONC 34.1 g/dl (32.0-36.5); MEAN CORPUSCULAR VOLUME 99.5 fl (80.0-96.0); MONO # 0.5 10^3/uL (0.0-0.8); NEUTROPHILS # 3.8 10^3/uL (1.8-7.7); NEUTROPHILS % 63.2 % (36.0-66.0); PLATELET COUNT, AUTOMATED 117 10^3/uL (150-450); RED BLOOD COUNT 3.69 10^6/uL (4.00-5.40)
[2019-07-08 20:05] LABS: ALBUMIN 3.3 GM/DL (3.2-5.2); BILIRUBIN,TOTAL 4.2 MG/DL (0.2-1.0); CALCIUM LEVEL 8.7 MG/DL (8.8-10.2); CREATININE FOR GFR 1.36 MG/DL (0.55-1.30); GLOMERULAR FILTRATION RATE 40.1 (>39); TOTAL PROTEIN 6.5 GM/DL (6.4-8.2)
[2019-07-08 20:42] LABS: HEMOGLOBIN A1c 6.5 %
== END ==
LOC: M SFHCADAM 16:11
PROVIDERS: ATTEND Physician Assistant Medical
DX: E11.21 Type 2 diabetes mellitus with diabetic nephropathy (principal); K74.60 Unspecified cirrhosis of liver; D63.8 Anemia in other chronic diseases classified elsewhere
CPT/HCPCS: 80053; 83036; 85025; G0463

== ENCOUNTER → 2019-09-03 | Outpatient (REF) | payer MEDICARE ==
[2019-09-03 17:45] LABS: CREATININE, URINE 95.4 MG/DL; MALB URINE SIEMENS 43.2 MG/L; MAU/CREAT RATIO 45.2 MCG/MG (0.0-30.0)
== END ==
LOC: M LABDRWAD 15:54
PROVIDERS: ATTEND Nurse Practitioner Family
DX: E11.40 Type 2 diabetes mellitus with diabetic neuropathy, unspecified (principal)

== ENCOUNTER 2019-09-08 01:07 | Emergency (ER) | payer MEDICARE ==
[~2019-09-08] VITALS: Ht 152.4 cm; Wt 84.1 kg
[2019-09-08 01:33] LABS: BASO # 0.1 10^3/uL (0.0-0.2); BASO % 1.1 % (0.0-1.0); EOS # 0.1 10^3/uL (0.0-0.5); HEMATOCRIT 33.7 % (36.0-47.0); HEMOGLOBIN 11.1 g/dl (12.0-15.5); LYMPH # 0.9 10^3/uL (1.5-5.0); LYMPH % 19.9 % (24.0-44.0); MEAN CORPUSCULAR HGB CONC 32.9 g/dl (32.0-36.5); MEAN CORPUSCULAR VOLUME 100.3 fl (80.0-96.0); MONO # 0.3 10^3/uL (0.0-0.8); MONO % 6.1 % (0.0-5.0); NEUTROPHILS # 3.2 10^3/uL (1.5-8.5); NEUTROPHILS % 70.7 % (36.0-66.0); RED BLOOD COUNT 3.36 10^6/uL (4.00-5.40); WHITE BLOOD COUNT 4.6 10^3/uL (4.0-10.0)
[2019-09-08 02:08] LABS: ALBUMIN 2.6 GM/DL (3.2-5.2); BILIRUBIN,DIRECT 0.6 MG/DL (0.0-0.2); CALCIUM LEVEL 7.8 MG/DL (8.8-10.2); CREATININE FOR GFR 1.51 MG/DL (0.55-1.30); GLOMERULAR FILTRATION RATE 35.5 (>39); POTASSIUM SERUM 4.3 MEQ/L (3.5-5.1); TOTAL PROTEIN 5.4 GM/DL (6.4-8.2)
[2019-09-08 02:10] LABS: PLATELET COUNT, AUTOMATED 86 10^3/uL (150-450)
[2019-09-08] MEDS: GASTROGRAFIN SOLUTION 30ML PO SCH ×2 (02:25→03:16)
[2019-09-08] MEDS ORDERED: ISOVUE-370 76% 100ML VIAL (Q9967) As Ordered ONE (03:38)
[2019-09-08 05:14] LABS: APPEARANCE, URINE HAZY (CLEAR); BACTERIA, URINE AUTO 1+ (NEGATIVE); BILIRUBIN, URINE AUTO NEGATIVE (NEGATIVE); BLOOD, URINE BLOOD NEGATIVE (NEGATIVE); COLOR, URINE YELLOW (YELLOW); GLUCOSE, URINE (UA) AUTO NEGATIVE (NEGATIVE); KETONE, URINE AUTO NEGATIVE (NEGATIVE); LEUKOCYTE ESTERASE, URINE AUTO 2+ (NEGATIVE); MUCUS, URINE SMALL (NEGATIVE); NITRITE, URINE AUTO NEGATIVE (NEGATIVE); PROTEIN, URINE AUTO NEGATIVE (NEGATIVE); RBC, URINE AUTO 4 /HPF (0-3); SPECIFIC GRAVITY URINE AUTO 1.027 (1.002-1.035); SQUAMOUS EPITHELIAL CELL UR AU 0 /HPF (0-6); UROBILINOGEN, URINE AUTO 0.2 mg/dL (0.0-2.0); WBC, URINE AUTO 132 /HPF (0-3)
[2019-09-08] MEDS ORDERED: FOSFOMYCIN TROMETHAMINE 3 GM POWDER PACKET (MONUROL) PO ONE (05:45)
--- NOTE | 2019-09-08 05:56 | REPVR ---
PROCEDURE INFORMATION: Exam: CT Abdomen And Pelvis With Contrast Exam date and time: 09/08/2019 3:51 AM Clinical history: 79 years old, female; Abdominal pain; Generalized TECHNIQUE: Imaging protocol: Computed tomography of the abdomen and pelvis with intravenous contrast. Radiation optimization: All CT scans at this facility use at least one of these dose optimization techniques: automated exposure control; mA and/or kV adjustment per patient size (includes targeted exams where dose is matched to clinical indication); or iterative reconstruction. Contrast material: ISOVUE 370; Contrast volume: 100 ml; Contrast route: IV; COMPARISON: CT ABD PELVIS W/O CONTRAST 04/17/2018 6:15 AM FINDINGS: Lungs: There is evidence of mild peripheral interstitial thickening in the visualized lung bases. Liver: A TIPS stent is seen in the liver. The liver is small with a nodular surface, consistent with cirrhosis. There are no focal liver lesions present. Gallbladder and bile ducts: There has been a cholecystectomy. There is no biliary ductal dilation. Pancreas: The pancreas is normal with no ductal dilation. Spleen: The spleen is mildly enlarged, measuring 13.2 x 13.2 cm. Adrenals: The adrenal glands are normal. Kidneys and ureters: There is 11 mm exophytic simple cyst in the left kidney midpole. Additional smaller cysts are seen in both kidneys. Areas of parenchymal thinning are seen in the kidneys, consistent with renal scars. No hydronephrosis. Stomach and bowel: There are a few mildly prominent small bowel loops with air-fluid levels. There is no transition or small bowel wall thickening. Mild diverticulosis is present in the distal colon. There is no dilation or thickening of the colon. Appendix: The appendix is not specifically identified. Intraperitoneal space: There is a metallic structure, likely a surgical clip, anterior to the gastric antrum. There is no evidence of free intraperitoneal or pelvic fluid. There is no free intraperitoneal air. Vasculature: There are multiple varices. Atherosclerotic changes are present in the abdominal aorta and the iliac arteries. Lymph nodes: There are a few, mildly enlarged periportal lymph nodes. Bladder: There is a small focus of air in the bladder, likely related to recent instrumentation. Please correlate clinically. The bladder appears otherwise unremarkable. Reproductive: The uterus is unremarkable. Bones/joints: Degenerative endplate changes are seen at multiple levels in the visualized spine. There is facet arthropathy in the lumbar spine. There are degenerative changes of both hips. Soft tissues: There is a right inguinal hernia containing fat and fluid. There is mild subcutaneous edema in the lower abdomen and pelvis. IMPRESSION: 1. Evidence of cirrhosis and portal hypertension with a TIPS in the liver. 2. A few nonspecific prominent small bowel loops with air-fluid levels, but no transition point or bowel wall thickening identified. 3. No significant free fluid in the abdomen or pelvis but there is fluid in the right inguinal hernia. 4. Focus of air in the bladder, likely related to recent instrumentation. Please correlate clinically. COMMENT: Consistent with the [place]'s Incidental Findings Committee Report (J Am Ricki Radiol 2010): Unless the patient's specific circumstances suggest otherwise, any liver lesion 0.5 cm or less, any cystic kidney lesion less than 1.0 cm, and/or any adrenal lesion 1.0 cm or less not otherwise characterized in this report as possessing suspicious or indeterminate imaging features is/are highly likely to be benign and do not require follow-up imaging or biopsy. Electronically signed by: Genny Molina On 09/08/2019 05:56:07 AM
[2019-09-08 07:30] VITALS: BP 158/70
--- NOTE | 2019-09-08 10:01 | ER ---
DATE OF CONSULTATION: 09/08/2019 CHIEF COMPLAINT: Right groin pain. HISTORY OF PRESENT ILLNESS: The patient is a 79-year-old female who presents to emergency room with sudden onset of a lump in her right groin as well as some sharp pain. She called the ambulance to bring her in early this morning. In the emergency room she had a large lump that was unable to be reduced. She underwent a CT scan that showed a large hernia in the right groin containing fat and fluid. Otherwise no signs of any bowel obstruction within it. The ER physician attempted to reduce it again and was unable to do so, so he called me for evaluation. When I came in to see her, I had him place her in Trendelenburg and put an ice pack on it, and by the time I came in the lump was gone. She still has some mild tenderness in the right groin but no more lump or mass there. No nausea or vomiting. No fevers or chills. She has never had anything like this in the past. No prior lump or pain in the groin and no prior surgery or trauma to the area. PAST MEDICAL HISTORY: Hypertension. Diabetes. Dyslipidemia. Gastroesophageal reflux disease. Atrial fibrillation. Congestive heart failure (CHF). Coronary disease. Cirrhosis secondary to nonimmune hepatitis. PAST SURGICAL HISTORY: Transjugular intrahepatic portosystemic shunt (TIPS) procedure. Appendectomy. Tubal ligation. Cholecystectomy. Bladder surgery. Cataract surgery. Heart stents. ALLERGIES: Multiple. Please see med rec. MEDICATIONS: Please see med rec. SOCIAL HISTORY: Denies drug, alcohol, tobacco abuse. FAMILY HISTORY: Noncontributory. REVIEW OF SYSTEMS: Pertinent positives and negatives as stated in the HPI. PHYSICAL EXAMINATION: GENERAL: Alert and oriented times three in no acute distress. VITALS: Temperature 98.6, pulse 69, respiration 20, blood pressure 158/70, pulse ox 98% on room air. HEENT: Pupils equal round react to light and accommodation. HEART: S1-S2 regular rate and rhythm. LUNGS: Lungs clear to auscultation. ABDOMEN: Soft, tender palpation right groin. No palpable lump. There is a small hernia identified with Valsalva, but no large masses as was identified on admission. EXTREMITIES: Bilateral lower extremity pitting edema. LABORATORIES: White count 4.6, hemoglobin 11.1, platelets 86, potassium 4.3, creatinine 1.5, total bilirubin 4, direct bilirubin 0.6, AST 43, lipase 339. IMAGING: CT abdomen and pelvis showed the right inguinal hernia containing fat and fluid. Some mild subcutaneous edema around it. ASSESSMENT/PLAN: The patient is a 79-year-old female with incarcerated right inguinal hernia that was able to be reduced with some ice pack and Trendelenburg. At this time she is stable and can be discharged home. There is no indication for emergent surgery now, especially with her comorbidities. I advised her to have this looked at as an outpatient and consider surgery electively in the future. She will be given my office number upon discharge to call to make an appointment if she is willing to do so. All of her questions were answered.
== END 2019-09-08 08:26 | disposition home or self-care (01) ==
LOC: M ED 01:07
DX: K40.91 Unilateral inguinal hernia, without obstruction or gangrene, recurrent (principal); N39.0 Urinary tract infection, site not specified; N28.1 Cyst of kidney, acquired; K76.6 Portal hypertension; M46.96 Unspecified inflammatory spondylopathy, lumbar region; I48.91 Unspecified atrial fibrillation; I25.10 Atherosclerotic heart disease of native coronary artery without angina pectoris; E11.9 Type 2 diabetes mellitus without complications; I10 Essential (primary) hypertension; E78.5 Hyperlipidemia, unspecified; K21.9 Gastro-esophageal reflux disease without esophagitis; D50.9 Iron deficiency anemia, unspecified; K75.4 Autoimmune hepatitis; K72.90 Hepatic failure, unspecified without coma; Z95.5 Presence of coronary angioplasty implant and graft; Z96.89 Presence of other specified functional implants; Z90.49 Acquired absence of other specified parts of digestive tract; Z90.89 Acquired absence of other organs; Z88.0 Allergy status to penicillin; Z88.1 Allergy status to other antibiotic agents; Z88.2 Allergy status to sulfonamides; Z88.6 Allergy status to analgesic agent; Z88.8 Allergy status to other drugs, medicaments and biological substances; Z91.048 Other nonmedicinal substance allergy status; Z79.01 Long term (current) use of anticoagulants; Z79.899 Other long term (current) drug therapy
CPT/HCPCS: 36415; 74177; 80048; 80076; 81001; 83690; 85025; 85049; 85055; 87088; 87186; 99285; Q9963; Q9967

== ENCOUNTER → 2019-09-19 | Outpatient (CLI) | payer MEDICARE ==
--- NOTE | 2019-09-19 08:50 | REP ---
Abdominal right upper quadrant ultrasound for cirrhosis/hepatic fibrosis. Comparisons are the hepatic ultrasound dated 03/05/2019 and the abdomen/pelvis CT dated 09/08/2019. The patient has a known TIPS shunt. This is again identified. There is no intrahepatic or extrahepatic biliary duct dilatation. The common biliary duct measures 4.2 mm in diameter. There is a cholecystectomy. There is an echogenic focus in the horacio hepatis, not identified on the comparison studies. This measures 1.9 x 1.5 cm. This is of uncertain significance. This may represent an hemangioma or could represent horacio hepatis fat. The hepatic parenchyma is hyperechoic compatible with steatosis/diffuse hepatocellular disease. No hepatic masses are identified. The visualized areas of the pancreas are unremarkable. The right kidney is normal size measuring 10.4 x 4.6 x 4.4 cm. There is no right renal calculus, hydronephrosis, solid mass or cystic mass. There is no right upper quadrant ascites. Impression: There is increased hepatic echogenicity compatible with diffuse hepatocellular disease. There are no hepatic masses. However, there is an echogenic 1.5 cm nodule in the horacio hepatis, not identified on the comparison studies, of uncertain significance, hemangioma versus horacio hepatis fat. There is no biliary duct dilatation. There is a known TIPS portosystemic shunt, unchanged. Electronically Signed by John Davison MD 09/19/2019 08:41 A
== END ==
LOC: M RAD 07:15
PROVIDERS: ATTEND Internal Medicine Gastroenterology
DX: K74.60 Unspecified cirrhosis of liver (principal); R18.8 Other ascites; K74.0 Hepatic fibrosis